=== PATIENT | male | born 1970 | race African-American/Black ===

== ENCOUNTER → 2019-02-03 08:35 | Outpatient (CLI) | payer OTHER, SELFPAY ==
--- NOTE | 2019-02-03 08:48 | DI.CT.S_ITS ---
PROCEDURE: CT LUMBAR SPINE WO CON INDICATIONS: SPINAL STENOSIS TECHNIQUE: Noncontrast 3 mm thick sections acquired from the T12 level to the sacrum. Sagittal and coronal reformats were constructed. For radiation dose reduction, the following was used: automated exposure control. COMPARISON: [facility], , MR LUMBAR SPINE WITH/WITHOUT CONTRAST, 07/16/2017, 13:00. [facility] [place], CR, XR LUMBAR SPINE 2 OR 3 VIEWS, 09/13/2018, 8:40. FINDINGS: Image quality: Excellent. Bones: There is posterior fusion from L3-S1 with intervertebral spacers. Hardware is intact without evidence of fracture or periprosthetic loosening. No acute vertebral body compression fractures. No suspicious lytic or blastic bony lesions. No pars defects. Disc bulges are present at L2-3, L3-4, L4-5 and L5-S1. There is mild canal narrowing at L2-3, progressive compared to prior exam. Previous spinal stenosis at L3-4 and L4-5 has markedly improved. No spinal stenosis at L5-S1. There is moderate bilateral foraminal narrowing at L3-4, severe left and moderate to severe right L4-5 and severe bilateral L5-S1 with slight appearance of nerve roots bilaterally. Appearance is minimally progressive at L4-5 and L5-S1 compared to prior exam. Multilevel facet hypertrophy is present. Soft tissues: No retroperitoneal masses or hematomas. Visualized aorta is normal in caliber. IMPRESSION: 1. Interval fusion from L3-S1 with improvement in previous spinal stenosis. 2. Multilevel foraminal narrowing with minimal interval progression as noted above. Dictated by: Heather Holm M.D. on 02/03/2019 at 16:39 Approved by: Heather Holm M.D. on 02/03/2019 at 16:47
== END ==
PROVIDERS: Family Provider Family Medicine; PCP Family Medicine; Visit Provider Orthopaedic Surgery Orthopaedic Surgery of the Spine
DX: M48.061 Spinal stenosis, lumbar region without neurogenic claudication (principal)
CPT/HCPCS: 72131

== ENCOUNTER → 2019-08-24 07:15 | Outpatient (CLI) | payer OTHER, SELFPAY ==
[2019-08-24 08:11] LABS: Add Manual Diff / Slide Review NO; Basophils Absolute Auto 100 /uL (0-100); Basophils Percent Auto 0.8 % (0-2); Eosinophils Absolute Auto 300 /uL (0-450); Eosinophils Percent Auto 3.4 % (2-4); Hematocrit 44.8 % (41-53); Hemoglobin 14.7 g/dL (13.5-17.5); Lymphocytes Absolute Auto 2100 /uL (1100-4500); Lymphocytes Percent Auto 26.2 % (25-40); Mean Corpuscular HGB Conc 32.9 % (30-36); Mean Corpuscular Hemoglobin 27.1 PG (26-34); Mean Corpuscular Volume 82.3 fL (80-100); Monocytes Absolute Auto 700 /uL (0-900); Monocytes Percent Auto 8.1 % (3-14); Neutrophils Absolute Auto 5000 /uL (1500-7000); Neutrophils Percent Auto 61.5 % (50-75); Platelet Count 225 X10^3/uL (150-400); Red Blood Cell Count 5.44 X10^6/uL (4.5-5.9); Red Cell Distribution Width 15.1 % (11.6-14.8); White Blood Cell Count 8.1 X10^3/uL (4.5-11.0)
[2019-08-24 08:52] LABS: BUN Creatinine Ratio 22.8 (6-22); Blood Urea Nitrogen 21 mg/dL (9-20); Calcium 9.6 mg/dL (8.4-10.2); Carbon Dioxide 24 mmol/L (22-32); Chloride 103 mmol/L (98-107); Estimated Glomerular Filt Rate > 60.0 mL/min (>60); Glucose 124 mg/dL (70-100); HEMOLYSIS 37 (0-50); Potassium 3.8 mmol/L (3.4-5.1); Sodium 137 mmol/L (137-145)
== END ==
PROVIDERS: Family Provider Family Medicine; PCP Family Medicine; Referring Provider Orthopaedic Surgery Orthopaedic Surgery of the Spine; Visit Provider Orthopaedic Surgery Orthopaedic Surgery of the Spine
DX: Z01.818 Encounter for other preprocedural examination (principal); Z01.812 Encounter for preprocedural laboratory examination; R73.9 Hyperglycemia, unspecified
CPT/HCPCS: 36415; 80048; 83036; 85025; 93005; 93010

== ENCOUNTER → 2020-05-03 09:24 | Outpatient (CLI) | payer OTHER, SELFPAY ==
[2020-05-03 10:07] LABS: Add Manual Diff / Slide Review NO; Basophils Absolute Auto 100 /uL (0-100); Basophils Percent Auto 0.8 % (0-2); Eosinophils Absolute Auto 200 /uL (0-450); Eosinophils Percent Auto 2.9 % (2-4); Hematocrit 45.1 % (41-53); Hemoglobin 14.5 g/dL (13.5-17.5); Lymphocytes Absolute Auto 1800 /uL (1100-4500); Lymphocytes Percent Auto 22.8 % (25-40); Mean Corpuscular HGB Conc 32.2 % (30-36); Mean Corpuscular Volume 83.7 fL (80-100); Monocytes Absolute Auto 500 /uL (0-900); Monocytes Percent Auto 6.6 % (3-14); Neutrophils Absolute Auto 5400 /uL (1500-7000); Neutrophils Percent Auto 66.9 % (50-75); Platelet Count 230 X10^3/uL (150-400); Red Blood Cell Count 5.38 X10^6/uL (4.5-5.9); Red Cell Distribution Width 15.3 % (11.6-14.8); White Blood Cell Count 8.1 X10^3/uL (4.5-11.0)
[2020-05-03 10:38] LABS: BUN Creatinine Ratio 22.5 (6-22); Blood Urea Nitrogen 20 mg/dL (9-20); Calcium 9.3 mg/dL (8.4-10.2); Carbon Dioxide 26 mmol/L (22-32); Chloride 104 mmol/L (98-107); Estimated Glomerular Filt Rate > 60.0 mL/min (>60); Glucose 117 mg/dL (70-100); HEMOLYSIS < 15 (0-50); Potassium 4.1 mmol/L (3.4-5.1); Sodium 138 mmol/L (137-145)
== END ==
PROVIDERS: Family Provider Family Medicine; PCP Family Medicine; Referring Provider Orthopaedic Surgery Orthopaedic Surgery of the Spine; Visit Provider Orthopaedic Surgery
DX: Z01.812 Encounter for preprocedural laboratory examination (principal)
CPT/HCPCS: 36415; 80048; 85025

== ENCOUNTER → 2020-05-28 13:52 | Outpatient (CLI) | payer OTHER, SELFPAY ==
[2020-05-28 15:04] LABS: COVID19 -Nasal RAPID Negative (Negative)
== END ==
PROVIDERS: Family Provider Family Medicine; PCP Family Medicine; Visit Provider Physician Assistant
DX: Z11.59 Encounter for screening for other viral diseases (principal)
CPT/HCPCS: 87635

== ENCOUNTER → 2020-07-07 09:32 | Outpatient (CLI) | payer OTHER, SELFPAY ==
[2020-07-07 10:51] LABS: COVID19 -Nasal RAPID Negative (Negative)
== END ==
PROVIDERS: Family Provider Family Medicine; PCP Family Medicine; Visit Provider Physician Assistant
DX: Z20.822 Contact with and (suspected) exposure to COVID-19 (principal)
CPT/HCPCS: 87635

== ENCOUNTER 2020-07-09 06:08 | Inpatient (IN) | payer OTHER, SELFPAY ==
[2020-06-12 07:51] VITALS: BMI 50.6
[2020-07-09] VITALS (22 sets, daily range): BP systolic 92–155; BP diastolic 4–95; PULSE 73–100; RESP 8–96; TEMP 36.2–37.1; O2SAT 12–99; BMI 50.6
[2020-07-09] MEDS: LACTATED RINGERS 1,000 ML 42 ML IV ×3 (07:01→11:18)
--- NOTE | 2020-07-09 07:40 | PM.PREOP ---
Pre-operative Note COVID-19 COVID-19 status: Negative Result date/Date tested (Pos, Neg/Pending): 07/07/20 Interval Note History & Physical reviewed/Exam performed by Physician: Yes Changes to H&P: No
--- NOTE | 2020-07-09 08:00 | DI.RAD.S_ITS ---
PROCEDURE: XR LUMBAR SPINE 2-3V INDICATIONS: L5-S1 TLIF TECHNIQUE: 2 intraoperative views of the lumbar spine were acquired. COMPARISON: [facility], JEREMIAH, L-SPINE 2-3 VIEWS, 07/22/2017, 14:26. [facility], JEREMIAH, L-SPINE 2-3 VIEWS, 07/20/2017, 10:42. FINDINGS: Intraoperative views of the lower lumbar spine. There are pedicle screws at L3-L5 with intervertebral body spacers. There is a new pedicle screw at left S1 and intervertebral body spacer. IMPRESSION: Intraoperative guidance for L5-S1 TLIF. Dictated by: Nirmal Kenny M.D. on 07/09/2020 at 14:12 Approved by: Nirmal Kenny M.D. on 07/09/2020 at 14:20
[2020-07-09] MEDS: CLINDAMYCIN 900 MG/50 ML PIGGYBACK 50 MG IV ×3 (08:10→20:09)
--- NOTE | 2020-07-09 08:43 | SUR.OPER ---
Prone on spine table, head in foam head support, padded chest and pelvic supports, gel pad at knees, lower legs supported by pillows; nipples, genitalia and toes free of pressure, arms secured on foam padded arm boards at <90 degrees abduction. Tape over blanket at thigh and calves secured to table. Gel pads along rails under legs, hips, abdomen. Patient legs are too large to fit between the rails so extra pillow and gel underneath knees and thighs.
[2020-07-09] MEDS: BUPIVACAINE LIPOSOME 266 MG/20 ML VIAL INJ (09:18)
[2020-07-09] MEDS: BUPIVACAINE 0.25% W/ EPI (PF) 10 ML VIAL 30 ML INJ (09:18)
--- NOTE | 2020-07-09 11:15 | CM.DANOTE ---
DCP: Case received EMR reviewed. Patient is in surgery. Reviewed history and physical in EMR. DCP assessment was completed based on information available in patient's record. Patient is a 50 year old male who admitted early this morning to the care of the orthopedic team. PCP: Dr. Ballesteros. Payer: confirmed: Anahy Dent. Patient came to the hospital for a surgical procedure. He is having a Tranlaminar Interbody Fusion/Laminectomy. Patient had had history of leg pain and weakness, secondary to spinal stenosis. According to notes, patient does not use any assistive devices at baseline. Unable to meet with patient secondary to his being in surgery. During team rounds, was mentioned that surgery is approximately a 3 hour surgery. He resides in [place] with his spouse, Mary Grace, and children. He is currently employed at [employer]. P: DCP to continue to follow, and will check in with patient post recovery from surgery. He will be working with P.T. as well, orders not yet currently in. Did place name of this material planner on patient's white board in his room, while he has been in surgery. Carey Espinoza RN/Helicopter Dispatcher
--- NOTE | 2020-07-09 12:26 | P.OP_ITS ---
Operative Date/Time/Diagnoses Date of procedure: 07/09/20 Time of procedure: 08:06 Pre-op diagnosis: 1. Hx of L3-5 TLIF with hardware loosening 2. L3-4, L4-5, L5-S1 spinal stenosis 3. L4-5 pseudoarthrosis Post-op diagnosis: same Procedure & Clinicians Procedure: 1. L5-S1 posterolateral and posterior interbody fusion 2. L5-S1 posterior interbody cage placement 3. L3-4, L4-5 posterior segmental instrumentation removal 4. L3-4, L4-5 revision laminectomy with exploration of fusion 5. L3-4, L4-5, L5-S1 posterior segmental instrumentation with pedicle screw placement 6. L4-5 posterolatearl fusion 7. [place] of bone marrow from iliac crest through a separate incision 8. Utilization of microsurgical technique and operating microscope Same procedure as scheduled: Yes Indications: Patient has been having chronic back pain and worsening lumbar radiculopathy. Patient had previous fusion almost 3 years ago. Patient has unresolved pain ra diculopathy that was persisting after additional conservative management. Patient failed multiple conservative management with worsening pain weakness and numbness in her lower extremity. Patient has been having difficulty performing activity of daily living. After discussing risks benefits of treatment options, patient elected proceed with surgery. Surgeon: Markie Juarez Brick Siding Applicator: Jenny Jean'Brien Click Yes if Unassisted: No Anesthesia Type: General Operative Notes Closure Type: primary Specimen(s): none sent Prosthetic devices, grafts, tissues, transplants, or devices: Globus revolve screws, Rise cage Applied: catheter, drain(s) (HV drain) and implant(s) (Globus revolve screws, Rise cage) Estimated Blood Loss (mL): 200 Blood products transfused: none Procedure in detail: Patient was seen in the preoperative area. Risks and benefits of the surgery was discussed with the patient. Informed consent was obtained from the patient and placed in the chart. Surgical site was marked. Patient was taken to the operative room. General anesthesia was administered. Prophylactic antibiotic was given to the patient less than 30 min before the incision was made. Patient was placed into a prone position on the Agustin table. Patient's back was then prepped and draped in the sterile fashion. Time- out was performed at this time. Using patient's previous scar incision was made over the L3-S1 interval on the left side. Fascia was incised in line with skin incision. Patient's previously placed hardware over the L3-4, L4-5 level was identified by dissecting down to the level the hardware using a Bovie and a Guerrero. The locking caps which was removed using globus screwdriver. The locking archana was then removed from the tulips of the pedicle screws using a Yasmani. The pedicle screws were then removed using the screwdriver. The screws were found to have good purchase except in L5 pedicle which was found to be loose. Patient was found have significant amount of heterotopic ossification around the hardware and also in the subcutaneous soft tissue. The Globus and MARS retractors was then placed into the wound and docked onto the L5 lamina using C-arm guidance. Using microsurgical technique and operating microscope a laminectomy facetectomy was performed by removing the L5 lamina and the L5-S1 facet. The disc space at L5- S1 level was identified next. And a total diskectomy was performed at L5-S1 level. The endplates were decorticated using a rasp and shaver. The total diskectomy and decortication was performed at L5-S1 level in order to to accomplish a L5-S1 fusion. The local bone from the laminectomy and facetectomy was saved for local bone grafting. After the total diskectomy and decortication was completed, Trifecta bone graft material was combined with local bone that was harvested earlier. At this time, a separate skin is incision was made over the iliac crest. A Jamshidi needle was inserted into the iliac crest through a separate skin incision. 5 cc of bone marrow aspiration was obtained through the separate skin incision using a Jamshidi needle from the iliac crest. The bone marrow aspiration was combined with local bone and the Trifecta bone grafting material. The bone grafting material was placed into the L5-S1 interbody space along with a expandable cage. The cage was expanded to its maximum height using the torque limiting screwdriver. The fusion mass on the left side was exposed by performing hemilaminectomy at L3-4 L4-5 level. The hemilaminectomy was performed using the Kerrison rongeur to undercut the lamina as well removing additional epidural scar tissue for purpose of decompressing the epidural space. The fusion mass was explored and was found have visible motion indicating pseudoarthrosis at L4-5 level. The L3-4 level was found to be solidly fused. Globus MARS retractor was inserted and docked onto the L4-5 L5-S1 posterolateral gutter. Using the power drill, posterior- lateral decortication was performed at L4-5 L5-S1 level until bleeding cortical bone was identified. The remaining bone grafting material was placed into the L4-5 L5-S1 posterior lateral gutter he order to accomplish posterolateral fusion at the L4-5 L5-S1 level. Using the double C-arm technique, pedicle screws were placed into the L3-L4 L5 and S1 pedicles on the left side. This was done by placing the Jamshidi needle into the pedicles, then placing the guidewires over the Jamshidi needle, and finally placing the cannulated screws over the guidewires bilaterally. After the pedicle screws were placed, a titanium archana was locked into the heads of the pedicle screws using locking caps and torque limiting screwdriver. After all the hardware was placed, and confirmed with AP and lateral C-arm imaging, the wound was then irrigated with sterile normal saline and packed with Ray-Jose gauze for 3 min to accomplish hemostasis. After the gauze was removed the deep fascia was closed with #1 Vicryl suture. The subcutaneous layer was closed with 2-0 Vicryl. The skin was closed with skin forrest. Patient tolerated the procedure well. There were no complications. Complications: none Post-operative Condition: stable Disposition: PACU Plan for aftercare: Admit to inpatient hospital
[2020-07-09] MEDS: HYDROMORPHONE 2 MG INJ IV ×3 (13:02→13:52)
[2020-07-09] MEDS: fentaNYL 100 MCG/2 ML INJ IV ×2 (13:02→13:20)
--- NOTE | 2020-07-09 13:23 | PC.NURSE ---
Day shift:' Pt not on AC unit at this time ([id number]).
[2020-07-09] MEDS: hydrOXYzine 50 MG/ML INJ 25 MG IM (14:20)
--- NOTE | 2020-07-09 14:42 | PC.NURSE ---
Day shift: Pt on unit from PACU at approc 1435. He is A&Ox3. States pain 7/10 left lower back and his left foot feels numb and some pain below the left knee. He is lying on his Rt side at this time. States The SCD's bug me so they are not on at this time. VS OK w/ HR 99. RA 95%. Dressing is CDI. Nate patent. Behzad-vac in patent and depressed w/ small amount of serosang fluid in it. Oreinted to call light and room. Spouse in room for support.
[2020-07-09] MEDS: OXYCODONE IR 10 MG TABLET PO ×3 (14:50→23:28)
[2020-07-09] MEDS: hydrOXYzine pamoate 25 MG CAPSULE PO ×3 (14:51→23:28)
[2020-07-09] MEDS: SODIUM CHLORIDE 0.9% 1,000 ML 100 ML IV (14:54)
--- NOTE | 2020-07-09 16:19 | PT-IP ANOTE ---
Pt arrived ~1445 to acute care floor. Not yet feeling BLE. Will attempt PT evaluation Monday 07/10.
[2020-07-09] MEDS: HYDROMORPHONE 0.5 MG INJ IV ×3 (16:33→23:39)
[2020-07-09] MEDS: INSULIN ASPART 100 UNIT/ML INSULN PEN 15 UNIT SUBCUT (16:54)
[2020-07-09] MEDS: METFORMIN 850 MG TABLET PO (16:54)
[2020-07-09] MEDS: INSULIN ASPART 100 UNIT/ML INSULN PEN SUBCUT (16:54)
[2020-07-09] MEDS: diazePAM 5 MG TABLET PO (20:10)
[2020-07-09] MEDS: cloNIDine 0.1 MG TABLET 0.2 MG PO (20:10)
[2020-07-09] MEDS: DOCUSATE 100 MG CAPSULE PO (20:10)
[2020-07-09] MEDS: SENNOSIDES 8.6 MG TABLET 17.2 MG PO (20:10)
[2020-07-09] MEDS: AMLODIPINE 5 MG TABLET PO (20:10)
[2020-07-09] MEDS: carvediloL 12.5 MG TABLET 25 MG PO (20:10)
[2020-07-10] VITALS (10 sets, daily range): BP systolic 111–153; BP diastolic 57–80; PULSE 91–98; RESP 16–17; TEMP 36.4–38.1; O2SAT 93–97
[2020-07-10] MEDS: SODIUM CHLORIDE 0.9% 1,000 ML 100 ML IV (01:24)
--- NOTE | 2020-07-10 02:34 | PC.NURSE ---
Addendum entered by Munira Lockhart R.N. 07/10/20 02:43: Requested to be awakened when he can have pain medication so now awakened (was snoring lightly) and when awake states his pain is 7/10; medicated with Oxycodone. Original Note: patient seen and assessed at 2342. Complaining of 8/10 back pain radiating down left leg so medicated with IV Dilaudid + Oxycodone/Vistaril combination and ice applied to back. Is alert and oriented. Breath sounds diminished but CTA with RA sat of 95%. HRR. BP elevated at 143/53 possibly due to pain. Denies nausea. BT present and is passing flatus. Indwelling catheter is patent; urine is clear, yellow. Able to move himself in bed; assisted as requested. Dressing to back is CDI; hemovac is intact and recompressed for suction. Chronic bilateral feet/lower extremity numbness improved since pre-op per patient. Wearing own compression stockings. Foot SCD's on. Fall risk score is moderate but patient is oriented, has not yet been out of bed and has in room so alarm is not activated.
[2020-07-10] MEDS: OXYCODONE IR 10 MG TABLET PO ×2 (02:40→05:43)
[2020-07-10] MEDS: CLINDAMYCIN 900 MG/50 ML PIGGYBACK 50 MG IV (04:03)
[2020-07-10] MEDS: HYDROMORPHONE 0.5 MG INJ IV ×3 (04:06→19:12)
[2020-07-10 05:16] LABS: Hemoglobin 12.8 g/dL (13.5-17.5)
[2020-07-10] MEDS: hydrOXYzine pamoate 25 MG CAPSULE PO ×2 (05:43→18:28)
[2020-07-10] MEDS: ACETAMINOPHEN 325 MG TABLET 650 MG PO (05:43)
--- NOTE | 2020-07-10 07:24 | PM.PNPO.1 ---
Subjective Subjective Date Patient Seen: 07/10/20 Time Patient Seen: 07:24 Interval history: POD #1 s/p L3-5 HWR, L5-S1 posterolateral and posterior interbody fusion, and L3-S1 posterior fusion with Dr. Juarez. Patient has had significant pain on Oxycodone requiring IV Dilaudid for breakthrough pain. He has not mobilized with PT yet. BS have been under control. Drain output was 150 cc yesterday. Exam Vital Signs (past 8 hours): - 07/10/20 05:36 07/10/20 05:43 07/10/20 06:25 Temperature 100.6 F H 100.6 F H 100.4 F H Pulse Rate 93 H Respiratory Rate 16 Blood Pressure 148/74 H Pulse Oximetry 97 Oxygen Delivery Method Room Air Oxygen Flow Rate 0 Narrative Exam Narrative: Patient lying in bed in NAD. SILT throughout BLEs. DP pulses 2+ and symmetrical. He is able to actively dorsiflex and plantarflex. Jordan in place. Objective Labs Result Diagrams: 07/10/20 05:00 Labs: Laboratory Results - last 24 hr 07/10/20 05:00 Hgb 12.8 L Hct 41.0 PFSH Medical History Asthma Diabetes HLD (hyperlipidemia) HTN (hypertension) Surgical History Hx of splenectomy Social History household members: spouse, family and children Smoking Status: Never smoker alcohol intake: former Assessment & Plan Post-op Postoperative Procedures: Procedures Operation Date: 07/09/20 07:45 Actual Procedures Side Surgeon p L3-5 HWR, L5-S1 TLIF, L3-S1 PSF w. instrumentation Markie Juarez MD Patient will mobilize with PT today. DC jordan catheter this AM. Change pain medication to Dilaudid PO. Patient needs to get his pain under control, and Drain volume significantly less. Anticipate DC home in next 1-2 days. Quality VTE Deep Vein Thrombosis/Pulmonary Embolism Present on Admission: No
[2020-07-10] MEDS: SODIUM CHLORIDE 0.9% FLUSH 10 ML IV ×2 (07:55→21:30)
[2020-07-10] MEDS: DOCUSATE 100 MG CAPSULE PO ×2 (08:00→21:28)
[2020-07-10] MEDS: carvediloL 12.5 MG TABLET 25 MG PO ×2 (08:00→21:29)
[2020-07-10] MEDS: AMLODIPINE 5 MG TABLET PO ×2 (08:00→21:29)
[2020-07-10] MEDS: ASCORBIC ACID 500 MG TABLET PO (08:00)
[2020-07-10] MEDS: HYDROMORPHONE 2 MG TABLET 4 MG PO ×4 (08:00→22:34)
[2020-07-10] MEDS: LORATADINE 10 MG TABLET PO (08:00)
[2020-07-10] MEDS: LOSARTAN 50 MG TABLET 100 MG PO (08:00)
[2020-07-10] MEDS: FUROSEMIDE 20 MG TABLET 60 MG PO (08:01)
[2020-07-10] MEDS: MAGNESIUM HYDROXIDE 30 ML UDC PO ×2 (08:01→16:18)
[2020-07-10] MEDS: cloNIDine 0.1 MG TABLET 0.2 MG PO ×2 (08:01→21:29)
[2020-07-10] MEDS: INSULIN ASPART 100 UNIT/ML INSULN PEN 15 UNIT SUBCUT ×3 (08:09→17:17)
[2020-07-10] MEDS: INSULIN GLARGINE 100 UNIT/ML 3ML PEN 50 UNIT SUBCUT (08:09)
[2020-07-10] MEDS: METFORMIN 850 MG TABLET PO ×3 (08:25→17:15)
--- NOTE | 2020-07-10 09:25 | CM.DPC ---
Addendum entered by Carey Espinoza R.N. 07/10/20 11:16: A message was left from a Luh Wesley from [employer], indicating if patient needs any resources. Her phone number is: [phone]. Patient was having significant pain, according to orthopedic note. He has not yet been up with P.T. Will follow closely for any needs. Original Note: DCP Cont: Checked in with patient. He was sitting up in bed finishing breakfast. , Mary Grace, was present in room. Introduced self and role. Patient has not yet worked with P.T. today. He stated that he is independent at baseline. Uses no DME supplies, and drives. P: DCP to continue to follow. Will see how patient does with P.T. Carey Espinoza RN/Upholstery Covers Inspector
--- NOTE | 2020-07-10 09:56 | PT.IIE ---
Addendum entered and electronically signed by Debra Moss PT 07/10/20 12:39: Caregiver training set up for 10:30 Wed 07/11 with pt's son Wai. Original Note: Current Diagnoses Other spondylosis with radiculopathy, lumbosacral region (07/09/20) Spinal stenosis, lumbar region without neurogenic claudication (07/09/20) Other mechanical complication of other internal orthopedic devices, implants and grafts, initial encounter (07/09/20) Surgery Performed Operation Date: 07/09/20 07:45 Actual Procedures p L3-5 HWR, L5-S1 TLIF, L3-S1 PSF w. instrumentation - Markie Juarez MD Surgical History (Last Reviewed 07/10/20 @ 07:57 by Jenny Vo PA-C) Hx of splenectomy Medical History (Last Reviewed 07/10/20 @ 07:57 by Jenny Vo PA-C) Asthma Diabetes HLD (hyperlipidemia) HTN (hypertension) Physical Therapy Inpatient Evaluation/Re-Eval M1 PT/OT-IP Prior Functional Status Start: 07/09/20 16:21 Freq: NEEDED Status: Active Protocol: Document 07/10/20 09:56 AW (Rec: 07/10/20 12:15 AW [id number]) Medical Review Prior Functional Status Medical History Reviewed Yes Communication WNL. Pt is an effective verbal communicator. Mobility and Gait Pt uses no assistive device. He is able to complete a [employer] shopping trip while holding on to a cart but has been limited due to back pain. He has history of lumbar surgery with hardware which had loosened on recent imaging . Activities of Daily Living and IADL's Pt has maintained independence with dressing and toileting tasks. His assists wtih washing his back. Social History Household Members spouse,family,children Living Arrangements Mobile home Number of Floors (Floors) One Floor Number of Stairs To Enter/Railing? 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 He lives with his , Mary Grace, who has taken two weeks off from work to assist at home. Pt's 25-yo son , Wai, is also staying in the home to help at discharge. Pt also has 8 and 10 yo children at home. M2 PT-IP Current Condition Start: 07/09/20 16:21 Freq: NEEDED Status: Active Protocol: Document 07/10/20 09:56 AW (Rec: 07/10/20 12:15 AW [id number]) Physical Therapy Current Condition Current Condition Evaluation Date 07/10/20 Treatment Diagnosis multi-level lumbar surgery; impaired mobility and gait. Onset Date 07/09/20 Precautions Lumbar Precautions Log Roll,No Twisting,Limit Bending,Lifting Restriction of 10 lbs,Gait Belt above Incisional Area M3 PT-IP Subjective Start: 07/09/20 16:21 Freq: NEEDED Status: Active Protocol: Document 07/10/20 09:56 AW (Rec: 07/10/20 12:15 AW [id number]) Subjective Physical Therapy Visit Type Type Initial Evaluation Visit Start Time 09:12 Visit Stop Time 09:56 Total Visit Minutes 44 Notes Co-eval with OT Number of MANAGER BALANCE Visits 0 Physical Therapy Visit Comments Patient Comments Pt is willing to participate with PT Patient Goals Pt hopes to avoid SNF and return home with family assist . Therapy Pain Assessment Pain When Pain Assessed During Mobility Pain Present Pain Present Pain Reported Location Back Intensity 9 Scale Used Numeric (0 - 10) Pain Behaviors Facial Grimacing,Restlessness, Wincing Pain Management Techniques Apply Cold,Re-positioning, Timing of Activity with Medications M4 PT-IP Mobility and Gait Start: 07/09/20 16:21 Freq: NEEDED Status: Active Protocol: Document 07/10/20 09:56 AW (Rec: 07/10/20 12:38 AW [id number]) PT-Bed Mobility Assessment Rolling Type of Rolling Log Rolling,Roll to Right Level of Assist Moderate Assistance,1 Person Assistance Supine to Sit Supine to Sit Moderate Assistance,1 Person Assistance,Bedrails Sit to Supine Sit to Supine Moderate Assistance,1 Person Assistance Scooting Scooting to Edge of Bed Contact Guard Assistance PT-Transfer Assessment Sit to and From Stand Sit to and from Stand Moderate Assistance,1 Person Assistance,2 Person Assistance ,Use of Upper Extremities Equipment Transfer Assistive Device Gait Belt,Front Wheeled Walker Orthotic/Prosthetic Devices or Brace: No Transfers Transfer Destination Bed,Chair Transfer Technique Stand Step Pivot Transfer Ability Level of Assist Moderate Assistance,1 Person Assistance,2 Person Assistance Comments Mobility Comments Pt was reclined in the bed as PT and OT arrived. After instruction on back precautions, pt required mod assist and bed rail for log roll to right and SL to sit. BP was 137/66 HR 97 sitting EOB. Pt brought his own FWW which he used with mod A x 1 to stand from the bed which was raised to simulate tall bed at home. Pt reported his left leg felt as if he would float away and he was having difficulty controlling its movement. He buckled on the LLE requiring assist for balance. Pt sat EOB again as therapists prepared the chair. Pt refused the low chair. PT built up the bedside chair with cushion and pillows. Pt then stood from the bed and transferred to the chair mod A x 2. Pt was groggy and needed cues to keep his eyes open. BP was 144/66 HR 94. Even with foot tray pulled out, pt was unstable on the chair so PT and OT decided to help him transfer back to the bed. BP reassessed was 120/64 HR 91 wtih pt reporting feeling hot. With mod A x 2, pt transferred with FWW and needed mod A x 1 for reverse log roll. Pt was positioned on the bed with call light and all needs in reach. Pt's remained in the room. Gait Assessment Gait Gait Assistance Required: Moderate Assistance,2 Person Assist Distance (Feet) 4 Able to Maintain Weight Bearing Status Yes During Gait Assistive Devices Assistive Device Gait Belt,Front Wheeled Walker Orthotic/Prosthetic Devices or Brace: No Gait Deviations General Gait Pattern Antalgic,Decreased Stride Length,Decreased Feet Clearance,Flexed Trunk,Step-to Gait,Wide Based Gait Factors Limiting Gait Function Factors Limiting Gait Function Decreased Activity Tolerance, Decreased Sensation,Decreased Strength,Limited Range of Motion,Pain,Poor Balance,Poor Safety Awareness Comments Gait Comments Transfer only. Pt limited by impaired sensation LLE and back pain. Stair Climbing Assessment Comments Stair Climbing Comments Not assessed. PT-Balance Assessment Sitting Balance and Reactions Static Sitting Balance Ability Good Dynamic Sitting Balance Ability Fair Standing Balance and Reactions Static Standing Balance Ability Poor Dynamic Standing Balance Ability Poor Device Used FWW M5 PT-IP Objective Assessments Start: 07/09/20 16:21 Freq: NEEDED Status: Active Protocol: Document 07/10/20 09:56 AW (Rec: 07/10/20 12:38 AW [id number]) Orientation Orientation/Cognition Level of Alertness Lethargic Orientation Name,Day of Week,Place, Situation Language Function Ability No Deficits Noted Safety Awareness Decreased Safety Awareness Gross Range of Motion Lower Extremity ROM Assessment Left Impaired Impairments limited LLE AROM into dorsiflexion at toes and ankle Strength Lower Extremity Strength Assessment Left Impaired Hip 4-/5 Knee 4-/5 Ankle 3-/5 Sensation Assessment Sensation Gross Sensation Left LE Impaired Light Touch Impaired Proprioception (Position) Impaired Sensation Description Numbness Comments Sensation Comments Poor awareness of LLE positioning in space. Pt reports feeling both light and heavy in the entire LLE but with distal more affected than proximal. M6 PT-IP Treatment Start: 07/09/20 16:21 Freq: NEEDED Status: Active Protocol: Document 07/10/20 09:56 AW (Rec: 07/10/20 12:38 AW [id number]) Physical Therapy Treatment Education Education Provided Precautions,Weight Bearing Status,Post-Op Packet,Safety Other Treatments Other Treatment Performed Provided education on role of PT, plan of care, current level of assist required. M7 PT-IP Assessment and Plan Start: 07/09/20 16:21 Freq: NEEDED Status: Active Protocol: Document 07/10/20 09:56 AW (Rec: 07/10/20 12:38 AW [id number]) PT Summary Assessment and Plan Potential Rehabilitation Potential Good Status of Condition at Evaluation Evolving Summary Impairments Strength,Balance,Sensation,Bed Mobility,Transfers,Gait, Activity Tolerance Assessment Summary Hood a 50 yo man seen for PT evaluation on POD1 following multi-level lumbar surgery and revision of prior hardware placement. He is independent with ADL's at baseline but reports limited community mobility due to back and BLE pain. On evaluation, pt is requiring mod assist x 2 for all mobility. Gait is not assessed out of concern for safety due to pt presenting with decreased LLE sensation and impaired motor control. Pt lives with his , 2 young children, and his 25 yo son who will all be able and available to assist should pt discharge to home. Pt hopes to avoid SNF but understands it may be a necessary back up plan. PT will plan for discharge home with family assist and HH therapy vs SNF rehab depending on pt progress . Goals Bed Mobility Goal Standby Assistance Transfer Goal Standby Assistance,Front Wheeled Walker Gait Goal Standby Assistance,Front Wheel Walker Gait Distance 120 Other Goals - up/down 5 steps with B rails CGA Days to Meet Goals 8 Frequency of Treatment Frequency Of Treatment Twice a Day Treatment Plan Physical Therapy Treatment Plan Bed Mobility Training,Transfer Training,Gait Training, Therapeutic Exercise,Balance Retraining,Post Op Education, Discharge Planning,Hot or Cold Pack,Neuromuscular Re-ed Other Recommendations and Next Treatment transfers, ambulation with FWW Focus /chair follow as tolerated Recommendations To Nursing Amount of Assist Needed 2 Person Assist Discharge Recommendations PT Discharge Recommendations Home with 05/01 Assist,Home Health,SNF Rehab Other Discharge Recommendations home with 05/01 and HH vs SNF pending progress Transportation Needs at Discharge Private Vehicle,Wheelchair/ Cabulance
--- NOTE | 2020-07-10 10:07 | OT.IP.EVAL ---
Current Diagnoses Other spondylosis with radiculopathy, lumbosacral region (07/09/20) Spinal stenosis, lumbar region without neurogenic claudication (07/09/20) Other mechanical complication of other internal orthopedic devices, implants and grafts, initial encounter (07/09/20) Surgery Performed Operation Date: 07/09/20 07:45 Actual Procedures p L3-5 HWR, L5-S1 TLIF, L3-S1 PSF w. instrumentation - Markie Juarez MD Past Medical History (Last Reviewed 07/10/20 @ 07:57 by Jenny Vo PA-C) Asthma Diabetes HLD (hyperlipidemia) HTN (hypertension) Surgical History (Last Reviewed 07/10/20 @ 07:57 by Jenny Vo PA-C) Hx of splenectomy Occupational Therapy Inpatient Evaluation/Re-Eval M1 PT/OT-IP Prior Functional Status Start: 07/10/20 13:13 Freq: NEEDED Status: Active Protocol: Document 07/10/20 09:12 [facility] (Rec: 07/10/20 13:50 [facility] [id number]) Medical Review Prior Functional Status Medical History Reviewed Yes Communication WNL. Pt is an effective verbal communicator. Mobility and Gait Pt uses no assisted device. He is able to complete a [employer] shopping trip while holding on to a cart but has been limited due to back pain. He has history of lumbar surgery with hardware which had loosened on recent imaging . Activities of Daily Living and IADL's Pt has maintained independence with dressing and toileting tasks. His assists with washing his back. Pt states his kids would assist him with his socks and shoes. Social History Household Members spouse,family,children Living Arrangements Mobile home Number of Floors (Floors) One Floor Number of Stairs To Enter/Railing? 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 He lives with his , Mary Grace, who has taken two weeks off from work to assist at home. Pt's 25-yo son , Wai, is also staying in the home to help at discharge. Pt also has 8 and 10 yo children at home. M2 OT-IP Current Condition Start: 07/10/20 13:13 Freq: Status: Active Protocol: Document 07/10/20 09:12 [facility] (Rec: 07/10/20 13:50 [facility] [id number]) Occupational Therapy Current Condition Current Condition Evaluation Date 07/10/20 Treatment Diagnosis S/P L3-5 HWR, L5-S1 TLIF, L3- S1 PSF Diagnosis Onset Date 07/09/20 Post Operative Precautions Lumbar Precautions Log Roll,No Twisting,Limit Bending,Lifting Restriction of 10 lbs,Gait Belt above Incisional Area M3 OT- IP Subjective and Pain Start: 07/10/20 13:13 Freq: Status: Active Protocol: Document 07/10/20 09:12 [facility] (Rec: 07/10/20 13:50 [facility] [id number]) OT- Subjective Occupational Therapy Visit Type Type Initial Evaluation Visit Start Time 09:12 Visit Stop Time 10:07 Total Visit Minutes 55 Occupational Therapy Visit Comments Patient Comments Pt seen with PT for evals. Pt 's present in the room during the session. Patient/Caregiver Goals TO go home. OT Pain Assessment Pain When Pain Assessed At Rest Pain Present Pain Present Pain Reported Location Back Intensity 8 M4 OT- IP ADL's Start: 07/10/20 13:13 Freq: Status: Active Protocol: Document 07/10/20 09:12 [facility] (Rec: 07/10/20 13:50 [facility] [id number]) OT [id number] Comments OT Self-Feeding Comments NOt at meal time. OT ADL-Grooming General Evaluation Grooming Ability Standby Assistance Comments OT Grooming Comments Able to wash his face while seated after set-up. OT ADL-Oral Care Comments Oral Care Comments NOt performed. Educated to sip into a cup to best follow his back precautions. OT ADL-Dressing General Eval Lower Body Dressing Ability Maximum Assistance Areas Needing Assistance Socks Comments OT Dressing Comments Able to educated pt on use of sock aid to help zack his socks. Pt states already has a maintainability engineer at home. Pt's assist with his compression stocking. OT ADL-Toileting General Evaluation Toileting Ability Total Assistance Areas Needing Assistance Empty Catheter or Colostomy Comments OT Toileting Comments Pt has jordan in place. OT ADL-Bathing Comments OT Bathing Comments NOt at this time. M5 OT- IP IADL's Start: 07/10/20 13:13 Freq: Status: Active Protocol: Document 07/10/20 09:12 [facility] (Rec: 07/10/20 13:50 [facility] [id number]) OT-Instrumental Activities of Daily Living Home Safety Awareness Home Safety Comments At this time as pt is very groogy best to have pt's family assist him for all needs. M6 OT- IP Functional Cognition Start: 07/10/20 13:13 Freq: Status: Active Protocol: Document 07/10/20 09:12 [facility] (Rec: 07/10/20 13:50 [facility] [id number]) Cognitive Factors Limiting Selfcare Function Cognitive Ability Level of Alertness Alert,Drowsy Patient Orientation Name,Place,Situation Attention Span Ability Capable of Focused Attention, Capable of Sustained Attention Ability to Follow Commands Able to Follow One Step Commands with Increased Time, Able to Follow One Step Commands with Repetition Safety Awareness Decreased Recall of Precautions,Decreased Ability to Apply Precautions Cognitive Comments Cognitive Assessment Comments Pt very groggy and needing step by step instructions for bed mobility needs. Pt also having trouble to recall the back precautions. OT- Vision and Hearing OT- Hearing Assessment OT- Hearing Assessment WFL M7 OT- IP Mobility and Balance Start: 07/10/20 13:13 Freq: Status: Active Protocol: Document 07/10/20 09:12 [facility] (Rec: 07/10/20 13:50 [facility] [id number]) OT- Bed Mobility Assessment Rolling Type of Rolling Roll to Right Level of Assistance Moderate Assistance Supine to Sit Supine to Sit Assist Moderate Assistance,1 Person Assistance,Bedrails Sit to Supine Sit to Supine Assist Moderate Assistance,1 Person Assistance,Bedrails OT-Transfer Assessment Sit to and From Stand Sit to and from Stand Moderate Assistance,1 Person Assistance,2 Person Assistance Transfers Transfer Ability Moderate Assistance,2 Person Assistance Technique Transfer Destination Bed,Chair Transfer Technique Stand Step Pivot Devices Transfer Assistive Devices Gait Belt,Front Wheeled Walker Comments Mobility Comments Pt needing from 1-2 person assist to stand from high bed. Pt left knee buckling and needing heavy use of arms on the FWW and assist from therapist for transfer to recliner with cushion on top and pillow to increase height of the recliner. Pt looking drowsy and feeling sweaty so determined to get pt back to the bed. Pt tends to keep one leg out from the walker when coming to stand. OT- Gait Assessment Comments Gait Ability Comments Only transfer at this time. OT- Balance Assessment Sitting Balance and Reactions Static Sitting Balance Ability Normal Dynamic Sitting Balance Ability Good Standing Balance and Reactions Static Standing Balance Ability Poor Dynamic Standing Balance Ability Poor M8 OT- IP Objective Assessments Start: 07/10/20 13:13 Freq: Status: Active Protocol: Document 07/10/20 09:12 [facility] (Rec: 07/10/20 13:50 [facility] [id number]) OT Strength Upper Extremity Strength Assessment Within Functional Limits M9 OT- IP Assessment and Plan Start: 07/10/20 13:13 Freq: Status: Active Protocol: Document 07/10/20 09:12 [facility] (Rec: 07/10/20 13:50 [facility] [id number]) OT Summary Assessment and Plan Potential Rehabilitation Potential Good Analytic Complexity at Evaluation Low Summary OT Impairments Pain,Strength,Balance, Functional Cognition, Functional Mobility,Grooming, Dressing,Toileting,Bathing, Toilet Transfers,Shower Transfers,Activity Tolerance Progress Towards Goals Slow Progress due to Pain,Slow Progress due to Medical Issues,Slow Progress due to Activity Tolerance,Slow Progress due to Cognition Assessment Summary Pt low complexity and main barriers are steps, groogy from medications, decreased strength, balance, and now needing two person assist for mobility needs. Pt insistent on going home as pt's son flew to assist pt at home. Pending caregiver training home with assist versus skilled rehab. Goals Grooming Goal Independent Dressing Goal Independent Toileting Goal Independent Bathing Goal Minimal Assistance Toilet Transfer Goal Independent Shower Transfer Goal Independent Patient/Caregiver Education Goal Demonstrate Post-Op Precautions,Caregiver Independent Assisting Patient Days to Meet Goals 15 Frequency of Treatment Frequency Of Treatment Once a Day Treatment Plan OT Treatment Plan ADL Training,Functional Cognition Training,Functional Mobility,Patient/Family Education,Discharge Planning Other Treatment Recommendations and Next Caregiver training with son Treatment Focus for ADL and transfer needs. Discharge Recommendations OT Discharge Recommendations Home with Assistance,SNF Rehab Other Discharge Recommendations Pending caregiver training home with assist versus skilled rehab. Home Equipment Needs Tub bench, sock aid, BSC Transportation Needs at Discharge Private Vehicle,Wheelchair/ Cabulance
--- NOTE | 2020-07-10 11:20 | PC.NURSE ---
Day shift: Pt did not want the Sullivan removed this AM. He said I want to wait until I can walk better. Pt informed of increased risk of UTI but he still wants it left in for now.
[2020-07-10] MEDS: INSULIN ASPART 100 UNIT/ML INSULN PEN SUBCUT (11:34)
--- NOTE | 2020-07-10 14:19 | PT.IPTN ---
Current Diagnoses Other spondylosis with radiculopathy, lumbosacral region (07/09/20) Spinal stenosis, lumbar region without neurogenic claudication (07/09/20) Other mechanical complication of other internal orthopedic devices, implants and grafts, initial encounter (07/09/20) Surgery Performed Operation Date: 07/09/20 07:45 Actual Procedures p L3-5 HWR, L5-S1 TLIF, L3-S1 PSF w. instrumentation - Markie Juarez MD Physical Therapy Treatment Note M2 PT-IP Current Condition Start: 07/09/20 16:21 Freq: NEEDED Status: Active Protocol: Document 07/10/20 09:56 AW (Rec: 07/10/20 12:15 AW [id number]) Physical Therapy Current Condition Current Condition Evaluation Date 07/10/20 Treatment Diagnosis multi-level lumbar surgery; impaired mobility and gait. Onset Date 07/09/20 Precautions Lumbar Precautions Log Roll,No Twisting,Limit Bending,Lifting Restriction of 10 lbs,Gait Belt above Incisional Area M3 PT-IP Subjective Start: 07/09/20 16:21 Freq: NEEDED Status: Active Protocol: Document 07/10/20 13:30 SP (Rec: 07/10/20 16:18 SP [id number]) Subjective Physical Therapy Visit Type Type Treatment Note Visit Start Time 13:30 Visit Stop Time 14:19 Total Visit Minutes 49 Notes SPTA Bailee attended tx and provided w/c follow when needed. in room when arrived, provided physical assist during gait, partial caregiver training. CREDIT VERIFICATION CLERK and or nurse assisted when needed during tx for catheter and wound bag draining and thigh device for tubing stability/ support. Nurse also provided SPTA education on Catheter removal for furture awareness, but to be performed by nursing only, at end of tx and how allows pt freedom for mobility with least restrictions and bladder trng prep DC when medically cleared . Number of ARTIST RELATIONSHIP MANAGER Visits 1 Physical Therapy Visit Comments Patient Comments Pt is willing to participate with therapy. Patient Goals Pt hopes to avoid SNF and return home with family assist . Therapy Pain Assessment Pain When Pain Assessed At Rest Pain Present Pain Present Pain Reported Location Back Intensity 8 Scale Used at rest increased to 9/10 during mobility. Description Burning,With Movement Pain Behaviors Facial Grimacing,Restlessness, Wincing Pain Management Techniques Apply Cold,Re-positioning, Timing of Activity with Medications M4 PT-IP Mobility and Gait Start: 07/09/20 16:21 Freq: NEEDED Status: Active Protocol: Document 07/10/20 13:30 SP (Rec: 07/10/20 16:18 SP [id number]) PT-Bed Mobility Assessment Rolling Type of Rolling Log Rolling,Roll to Right Level of Assist Standby Assistance Supine to Sit Supine to Sit Standby Assistance,Head of Bed Elevated,Bedrails Sit to Supine Sit to Supine Minimal Assistance,1 Person Assistance,Bedrails Scooting Scooting to Edge of Bed Contact Guard Assistance PT-Transfer Assessment Sit to and From Stand Sit to and from Stand Moderate Assistance,1 Person Assistance,Use of Upper Extremities Equipment Transfer Assistive Device Gait Belt,Front Wheeled Walker Orthotic/Prosthetic Devices or Brace: No Transfers Transfer Destination Bed,Chair Transfer Technique Pt ambulated using FWW Transfer Ability Level of Assist Minimal Assistance,Moderate Assistance,1 Person Assistance ,Use of Upper Extremities Comments Mobility Comments Pt was R sidelying in bed and in room when arrived. Pt had recall 3/3 spinal precautions. Pt completed R sidelying >sitting using BUE within spinal precautions then scoot to EOB SBA. Sit>stand Mod A x1 with cuing for 1 UE off bed and other on FWW, ambulate further in room to door>bench>back to chair approx 30 ft (bench cushion on chair with extra pillow take up gap to elevate for his height) Min-Mod A using FWW and slow descent into chair using UE for self support. Pt agreeable to walking further distance into hallway approx 150 ft total with w/c follow but not needed using FWW, see gait for details. When returned to room pt sat on to EOB, nurse provided pain meds and assisted with catheter removal. Sit>R sidelying Min A by SPTA for LE assist onto bed and pillow support and CP at low back to assist pain control. Pt had bed alarmed, call light and all needs in reach before left. in room. Gait Assessment Gait Gait Assistance Required: Minimum Assistance,Moderate Assistance,1 Person Assist Distance (Feet) 150 Able to Maintain Weight Bearing Status Yes During Gait Assistive Devices Assistive Device Gait Belt,Front Wheeled Walker Orthotic/Prosthetic Devices or Brace: No Gait Deviations General Gait Pattern Antalgic,Decreased Stride Length,Decreased Feet Clearance,Flexed Trunk,Lateral Trunk Lean,Step-to Gait,Wide Based Gait Factors Limiting Gait Function Factors Limiting Gait Function Decreased Activity Tolerance, Decreased Sensation,Decreased Strength,Limited Range of Motion,Pain,Poor Balance,Poor Safety Awareness Comments Gait Comments Room and hallway gait using FWW Min- Mod A with support for L trunk righting to the right during LLE advancement. Pt is unable actively dorsiflex R ankle to 90 deg to allow foot clearance and so compensated with hip flexion and demonstrates foot slap, cued for trying eccentric control heel to toe grading to facilitaiton Tib Anterior as best can. Stair Climbing Assessment Comments Stair Climbing Comments unable at this time, will assess tomorrow with son during caregiver training. PT-Balance Assessment Sitting Balance and Reactions Static Sitting Balance Ability Good Dynamic Sitting Balance Ability Fair Standing Balance and Reactions Static Standing Balance Ability Poor Dynamic Standing Balance Ability Poor Device Used FWW M5 PT-IP Objective Assessments Start: 07/09/20 16:21 Freq: NEEDED Status: Active Protocol: Document 07/10/20 09:56 AW (Rec: 07/10/20 12:38 AW [id number]) Orientation Orientation/Cognition Level of Alertness Lethargic Orientation Name,Day of Week,Place, Situation Language Function Ability No Deficits Noted Safety Awareness Decreased Safety Awareness Gross Range of Motion Lower Extremity ROM Assessment Left Impaired Impairments limited LLE AROM into dorsiflexion at toes and ankle Strength Lower Extremity Strength Assessment Left Impaired Hip 4-/5 Knee 4-/5 Ankle 3-/5 Sensation Assessment Sensation Gross Sensation Left LE Impaired Light Touch Impaired Proprioception (Position) Impaired Sensation Description Numbness Comments Sensation Comments Poor awareness of LLE positioning in space. Pt reports feeling both light and heavy in the entire LLE but with distal more affected than proximal. M6 PT-IP Treatment Start: 07/09/20 16:21 Freq: NEEDED Status: Active Protocol: Document 07/10/20 13:30 SP (Rec: 07/10/20 16:18 SP [id number]) Physical Therapy Treatment Exercises Exercises Ankle Pumps,Seated Knee Flexion/Extension Education Education Provided Precautions,Weight Bearing Status,Post-Op Packet,Safety M7 PT-IP Assessment and Plan Start: 07/09/20 16:21 Freq: NEEDED Status: Active Protocol: Document 07/10/20 13:30 SP (Rec: 07/10/20 16:18 SP [id number]) PT Summary Assessment and Plan Potential Rehabilitation Potential Good Status of Condition at Evaluation Evolving Summary Impairments Strength,Balance,Sensation,Bed Mobility,Transfers,Gait, Activity Tolerance Progress Towards Goals Progressing Toward Goals,Slow Progress due to Pain,Slow Progress due to Medical Issues ,Slow Progress due to Activity Tolerance Assessment Summary Pt required SBA during bed mobility, Min- Mod A for transfers and gait hallway nursing station distance using fWW with trunk support on L due to L lateral lean. Pt is demonstrating lacking complete R LE dorsiflexion at this time but improving from am tx. Will continue to assess pt progression but would benefit from further acute PT to improved RLE strength and safety during mobility using FWW. Goals Bed Mobility Goal Standby Assistance Transfer Goal Standby Assistance,Front Wheeled Walker Gait Goal Standby Assistance,Front Wheel Walker Gait Distance 120 Other Goals - up/down 5 steps with B rails CGA Days to Meet Goals 8 Frequency of Treatment Frequency Of Treatment Twice a Day Treatment Plan Physical Therapy Treatment Plan Bed Mobility Training,Transfer Training,Gait Training, Therapeutic Exercise,Balance Retraining,Post Op Education, Discharge Planning,Hot or Cold Pack,Neuromuscular Re-ed Other Recommendations and Next Treatment caregiver training with son at [facility] 1030 07/11 including bed mobiltiy with HOB flat no rails, transfers, ambulation with FWW/chair follow as tolerated, stair mgt 5 stairs B HR. Recommendations To Nursing Amount of Assist Needed 1 Person Assist Discharge Recommendations PT Discharge Recommendations Home with 24/7 Assist,Home Health Other Discharge Recommendations home with 24/7 and Transportation Needs at Discharge Private Vehicle,Wheelchair/ Cabulance
[2020-07-10] MEDS: diazePAM 5 MG TABLET PO (21:29)
[2020-07-10] MEDS: ROSUVASTATIN 10 MG TABLET PO (21:29)
[2020-07-10] MEDS: SENNOSIDES 8.6 MG TABLET 17.2 MG PO (21:31)
--- NOTE | 2020-07-11 00:30 | PC.NURSE ---
Addendum entered by Munira Lockhart R.N. 07/11/20 05:45: Ambulated in [place] with walker and SBA; walked around main nursing station and back to room x 2 Addendum entered by Munira Lockhart R.N. 07/11/20 02:51: Complains of 7/10 back pain/pressure exacerbated by movement; medicated with Dilaudid + Vistaril. Original Note: patient is alert and oriented. Breath sounds diminished but CTA with RA sat of 96%. HRR. BP continues to trend high at 149/74. Denies nausea. BT hypoactive but states he is passing flatus. Catheter removed yesterday and has been urinating without difficulty; denies dysuria, frequency or urgency. Able to move himself in bed. Reportedly gets up with walker and 1 assist. Dressing to back is CDI; hemovac is intact and recompressed. States pain is 6-7/10 at rest and 8/10 with movement but was medicated at 2234 with po Dilaudid and feels pain is tolerable; ice pack applied to back and informed to call when needing more pain medication. Refusing to wear foot SCD's so reminded to ankle wave. Is having weird feeling in left thigh area...feels floppy during ambulation. Also is only able to flex left foot slightly. Chronic numbness in bilateral LE. Fall risk score is high but has been calling appropriately and is present in room so alarm is not being utilized at this time; verbalizes he will call for assistance when needing to get out of bed.
[2020-07-11] MEDS: HYDROMORPHONE 2 MG TABLET 4 MG PO ×4 (02:49→13:40)
[2020-07-11] MEDS: hydrOXYzine pamoate 25 MG CAPSULE PO ×3 (02:49→10:47)
[2020-07-11 05:51] VITALS: BP 145/70; PULSE 91; RESP 16; TEMP 37.2; O2SAT 93
[2020-07-11 07:42] VITALS: BP 149/74; PULSE 89; RESP 18; TEMP 36.8; O2SAT 96
[2020-07-11] MEDS: INSULIN GLARGINE 100 UNIT/ML 3ML PEN 50 UNIT SUBCUT (08:54)
[2020-07-11] MEDS: INSULIN ASPART 100 UNIT/ML INSULN PEN SUBCUT ×2 (08:55→12:19)
[2020-07-11] MEDS: INSULIN ASPART 100 UNIT/ML INSULN PEN 15 UNIT SUBCUT ×2 (08:57→12:19)
[2020-07-11 08:58] VITALS: BP 149/74
[2020-07-11] MEDS: carvediloL 12.5 MG TABLET 25 MG PO (08:58)
[2020-07-11] MEDS: METFORMIN 850 MG TABLET PO ×2 (08:58→12:20)
[2020-07-11 08:59] VITALS: BP 149/74
[2020-07-11] MEDS: cloNIDine 0.1 MG TABLET 0.2 MG PO (08:59)
[2020-07-11] MEDS: FUROSEMIDE 20 MG TABLET 60 MG PO (08:59)
[2020-07-11] MEDS: LOSARTAN 50 MG TABLET 100 MG PO (08:59)
[2020-07-11] MEDS: ASCORBIC ACID 500 MG TABLET PO (08:59)
[2020-07-11] MEDS: AMLODIPINE 5 MG TABLET PO (08:59)
[2020-07-11] MEDS: LORATADINE 10 MG TABLET PO (08:59)
[2020-07-11] MEDS: DOCUSATE 100 MG CAPSULE PO (09:00)
[2020-07-11] MEDS: SODIUM CHLORIDE 0.9% FLUSH 10 ML IV (09:00)
--- NOTE | 2020-07-11 10:45 | PM.PNPO.1 ---
Subjective Subjective Date Patient Seen: 07/11/20 Time Patient Seen: 10:46 Interval history: Pain has been moderate to severe but well managed with addition Dilaudid. Denies fever or chills. No nausea or vomiting. He notes weakness with dorsiflexion and great toe extension of the left foot. Exam Vital Signs (past 8 hours): - 07/11/20 05:51 07/11/20 07:42 07/11/20 08:58 Temperature 98.9 F 98.2 F Pulse Rate 91 H 89 Respiratory Rate 16 18 Blood Pressure 145/70 H 149/74 H 149/74 H Pulse Oximetry 93 96 07/11/20 08:59 Temperature Pulse Rate Respiratory Rate Blood Pressure 149/74 H Pulse Oximetry Oxygen Delivery Method Room Air Oxygen Flow Rate 0 Drain output 50 mL last shift Narrative Exam Narrative: Pleasant 50-year-old male resting comfortably in bed in no apparent distress. Lumbar dressing is clean, dry and intact. Sensation grossly intact to light touch distal left lower extremity. Patient has 4/5 strength with plantar flexion left foot. 3/5 strength with dorsiflexion compared to 5/5 on the right. No palpable movement of the left toe with extension. Both legs are warm and dry. Objective Labs Result Diagrams: 07/10/20 05:00 PFSH Medical History Asthma Diabetes HLD (hyperlipidemia) HTN (hypertension) Surgical History Hx of splenectomy Social History household members: spouse, family and children Smoking Status: Never smoker alcohol intake: former Assessment & Plan Post-op Postoperative Procedures: Procedures Operation Date: 07/09/20 07:45 Actual Procedures Side Surgeon p L3-5 HWR, L5-S1 TLIF, L3-S1 PSF w. instrumentation Markie Juarez MD Postop day 2 status post L5-S1 posterior lateral and posterior interbody fusion, L5-S1 posterior interbody cage placement, L3-L4, L4-L5 posterior segmental instrumentation removal, L3-L4-L4-L5 revision laminectomy with exploration of fusion, L3-L4, L4-L5, L5-S1 posterior segmental instrumentation with pedicle screw placement, L4-L5 posterior lateral fusion. Patient has weakness with plantar flexion, dorsiflexion, great toe extension on the left. Patient is mobilizing with physical therapy may need AFO. Continue to monitor drain output likely discharge home tomorrow. Quality VTE Deep Vein Thrombosis/Pulmonary Embolism Present on Admission: No
--- NOTE | 2020-07-11 11:15 | PT.IPTN ---
Current Diagnoses Other spondylosis with radiculopathy, lumbosacral region (07/09/20) Spinal stenosis, lumbar region without neurogenic claudication (07/09/20) Other mechanical complication of other internal orthopedic devices, implants and grafts, initial encounter (07/09/20) Surgery Performed Operation Date: 07/09/20 07:45 Actual Procedures p L3-5 HWR, L5-S1 TLIF, L3-S1 PSF w. instrumentation - Markie Juarez MD Physical Therapy Treatment Note M2 PT-IP Current Condition Start: 07/09/20 16:21 Freq: NEEDED Status: Active Protocol: Document 07/10/20 09:56 AW (Rec: 07/10/20 12:15 AW [id number]) Physical Therapy Current Condition Current Condition Evaluation Date 07/10/20 Treatment Diagnosis multi-level lumbar surgery; impaired mobility and gait. Onset Date 07/09/20 Precautions Lumbar Precautions Log Roll,No Twisting,Limit Bending,Lifting Restriction of 10 lbs,Gait Belt above Incisional Area M3 PT-IP Subjective Start: 07/09/20 16:21 Freq: NEEDED Status: Active Protocol: Document 07/11/20 10:35 LD (Rec: 07/11/20 13:06 LD [id number]) Subjective Physical Therapy Visit Type Type Treatment Note Visit Start Time 10:35 Visit Stop Time 11:15 Total Visit Minutes 40 Notes PK Morocho co-led tx w/ supervision of SPRING COILER HAND Brooke. Son in room when arrived for caregiver training, provided physical assist need during tx . Doctor and nurse in room when arrived for post surg check up . Later in tx returned for MMT LLE. Raf inguired if therapy recommended the use of an AFO SPRING COILER HAND during tx, SPRING COILER HAND didn't feel the need w/ cues for pt during safety of heel toe gait pattern and foot clearance. Number of SPRING COILER HAND Visits 2 Physical Therapy Visit Comments Patient Comments Pt is willing to participate with therapy. Patient Goals Pt hopes to avoid SNF and return home with family assist . Therapy Pain Assessment Pain When Pain Assessed During Mobility Pain Present Pain Present Pain Reported Location Back Intensity 8 Scale Used Numeric (0 - 10) Description With Movement Pain Behaviors Facial Grimacing,Restlessness, Wincing Pain Management Techniques Apply Cold,Re-positioning, Timing of Activity with Medications M4 PT-IP Mobility and Gait Start: 07/09/20 16:21 Freq: NEEDED Status: Active Protocol: Document 07/11/20 10:35 LD (Rec: 07/11/20 13:06 LD [id number]) PT-Bed Mobility Assessment Rolling Type of Rolling Log Rolling,Roll to Right Level of Assist Standby Assistance,1 Person Assistance Supine to Sit Supine to Sit Standby Assistance,Contact Guard Assistance,1 Person Assistance Scooting Scooting to Edge of Bed Contact Guard Assistance PT-Transfer Assessment Sit to and From Stand Sit to and from Stand Contact Guard Assistance, Minimal Assistance,1 Person Assistance,Use of Upper Extremities Equipment Transfer Assistive Device Gait Belt,Front Wheeled Walker Orthotic/Prosthetic Devices or Brace: No Transfers Transfer Destination Bed,Chair Transfer Technique Pt ambulated using FWW Transfer Ability Level of Assist Contact Guard Assistance, Minimal Assistance,1 Person Assistance,Use of Upper Extremities Comments Mobility Comments Pt was in bed with HOB elevated with son, doc, and nurse in room when arrived. Pt pain level 7/10 in beginning of tx. Recieved meds from nurse. Pt had recall 3/3 spinal precautions w/ prompt cuing weight limit of no more than 10 lbs. Instructed caregiver instructions for mobility: Pt completed R sidelying>sitting w/ HOB flat no rails within spinal precautions SBA following with scoot to EOB SBA. Sit> stand Min A x1 w/ cueing 1 UE on bed and other on FWW, ambulated to stairs and back to room approx 250 ft. When returned to room, transferred to the chair min A x1 FWW (2 pillows for cushion instead of height, to strengthen LE), using UE for self support. Pain level 8 /10 during mobility. Provided post op education. Placed call light and other needs within reach, pt verbalized understanding the use of call light for assist. Son in room when left. Gait Assessment Gait Gait Assistance Required: Contact Guard Assist,Minimum Assistance,1 Person Assist Distance (Feet) 250 Able to Maintain Weight Bearing Status Yes During Gait Assistive Devices Assistive Device Gait Belt,Front Wheeled Walker Orthotic/Prosthetic Devices or Brace: No Gait Deviations General Gait Pattern Antalgic,Decreased Stride Length,Decreased Feet Clearance,Flexed Trunk,Wide Based Gait Factors Limiting Gait Function Factors Limiting Gait Function Decreased Activity Tolerance, Decreased Sensation,Decreased Strength,Limited Range of Motion,Pain,Poor Balance,Poor Safety Awareness Comments Gait Comments Room and hallway gait using FWW CGA-Min A x1. Trunk is more stable during LLE advancement. Pt has better control of his L ankle DF but continues to be limited for foot clearance as long as given cues for heel to toe for slow eccentric gait pattern. Stair Climbing Assessment Evaluation Level of Assist On Stairs Contact Guard Assistance,1 Person Assistance Devices Stair Climbing Assistive Devices Left Railing,Right Railing Technique/Endurance Stair Climbing Direction Ascend and Descend Stair Climbing Technique Step to Step Number of Steps Climbed 3 Stair Climbing Set # Repetitions (reps) 2 Comments Stair Climbing Comments Ascend and descend a total of 6 steps Mod A x1 using B HR, cueing ascending w/ uninvolved leg lead and descending w/ involved leg w/ step to gait patterning. PT-Balance Assessment Sitting Balance and Reactions Static Sitting Balance Ability Good Dynamic Sitting Balance Ability Fair Standing Balance and Reactions Static Standing Balance Ability Poor Dynamic Standing Balance Ability Poor Device Used FWW M5 PT-IP Objective Assessments Start: 07/09/20 16:21 Freq: NEEDED Status: Active Protocol: Document 07/10/20 09:56 AW (Rec: 07/10/20 12:38 AW [id number]) Orientation Orientation/Cognition Level of Alertness Lethargic Orientation Name,Day of Week,Place, Situation Language Function Ability No Deficits Noted Safety Awareness Decreased Safety Awareness Gross Range of Motion Lower Extremity ROM Assessment Left Impaired Impairments limited LLE AROM into dorsiflexion at toes and ankle Strength Lower Extremity Strength Assessment Left Impaired Hip 4-/5 Knee 4-/5 Ankle 3-/5 Sensation Assessment Sensation Gross Sensation Left LE Impaired Light Touch Impaired Proprioception (Position) Impaired Sensation Description Numbness Comments Sensation Comments Poor awareness of LLE positioning in space. Pt reports feeling both light and heavy in the entire LLE but with distal more affected than proximal. M6 PT-IP Treatment Start: 07/09/20 16:21 Freq: NEEDED Status: Active Protocol: Document 07/11/20 10:35 LD (Rec: 07/11/20 13:06 LD [id number]) Physical Therapy Treatment Exercises Exercises Ankle Pumps,Heel Slides,Supine Hip Abduction,Seated Knee Flexion/Extension Education Education Provided Precautions,Weight Bearing Status,Post-Op Packet,Safety M7 PT-IP Assessment and Plan Start: 07/09/20 16:21 Freq: NEEDED Status: Active Protocol: Document 07/11/20 10:35 LD (Rec: 07/11/20 13:06 LD [id number]) PT Summary Assessment and Plan Potential Rehabilitation Potential Good Status of Condition at Evaluation Evolving Summary Impairments Strength,Balance,Sensation,Bed Mobility,Transfers,Gait, Activity Tolerance Progress Towards Goals Progressing Toward Goals,Slow Progress due to Pain,Slow Progress due to Medical Issues ,Slow Progress due to Activity Tolerance Assessment Summary Pt was SBA SGA for bed mobility, sit>stand min-mod A x1 w/ FWW, gait CGA-min A, stairs Mod A x1 B HR. Pt is safe to return home w/ familt to assist 05/01. Reccommend HHPT to progress strength and functional mobility upon discharge when patient is medically cleared. Goals Bed Mobility Goal Standby Assistance Transfer Goal Standby Assistance,Front Wheeled Walker Gait Goal Standby Assistance,Front Wheel Walker Gait Distance 120 Other Goals - up/down 5 steps with B rails CGA Days to Meet Goals 8 Frequency of Treatment Frequency Of Treatment Twice a Day Treatment Plan Physical Therapy Treatment Plan Bed Mobility Training,Transfer Training,Gait Training, Therapeutic Exercise,Balance Retraining,Post Op Education, Discharge Planning,Hot or Cold Pack,Neuromuscular Re-ed Other Recommendations and Next Treatment Continue w/ log roll/bed Focus mobiltiy with HOB flat no rails, transfers, ambulation with FWW/chair follow as tolerated Recommendations To Nursing Amount of Assist Needed 1 Person Assist Discharge Recommendations PT Discharge Recommendations Home with 05/01 Assist,Home Health Other Discharge Recommendations home with 05/01 and HHPT Equipment Needed for Home Before HHPT to continue reassess L Discharge ankle mobility. Transportation Needs at Discharge Private Vehicle,Wheelchair/ Cabulance
--- NOTE | 2020-07-11 12:00 | CM.DPC ---
Addendum entered by GANGA Krause 07/11/20 14:51: ADD: Return call from [facility] stating that they reviewed clinicals and due to their current difficulty in getting L&I auth in a timely manner (2-3 weeks) they are recommending pt seek outpt PT although they did not contact pt's assigned L&I CM. Pt already left the building for home via spouse POV. BERNADINE called pt's L&I CM [facility] and left ms with update on referral to [facility] with their contact info and if she could help speed up the auth process for the pt and coordinate with [facility] as SW already provided all clinical information including F2F and MD orders and pt has discharged home. BF Original Note: DCP Discharge Home with HH Per Ortho PA, pt medically stable to d/c home today with spouse/son support after further PT/OT today. Per PT/OT, recommending family assist and HH. BERNADINE met bedside with pt and explained role and pt confirms he is agreeable to d/c plan home today although he spoke to ORtho PA regarding his lack of bowel movement and floppy foot feeling and pt has already had prune juice and milk of magnesia and about to eat food and ambulate a bit more and aware that bm not necessarily needed prior to d/c but pt is hopeful for that. BERNADINE discussed HH and pt agreeable and reviewed HH Choice List and no preference and BERNADINE called [facility] based on Vendor Calendar and provided pt information and confirmed that they are willing to contact pt's assigned L&I CM [place] [phone] and attempt to get HH auth and will keep pt updated how quickly HH can be arranged. BERNADINE updated pt on this information. BERNADINE faxed [facility] pt's clinicals, L&I information, F2F and orders to review and begin working on auth. Plan: Patient to d/c home via family POV and new [facility] referral towards attempting insurance auth for HH. GANGA Krause
--- NOTE | 2020-07-11 12:02 | P.DS_ITS ---
History of Present Illness History of Present Illness Date Patient Seen: 07/11/20 Time Patient Seen: 12:02 Chief complaint: Tranlaminar Interbody Fusion/Laminotomy Narrative: See progress note Discharge Providers Provider Date of admission: 07/09/20 06:08 Discharge Date: 07/11/20 Consults: 05/23/20 13:52 Consult to Anesthesiology Routine Comment: Consulting Provider: Anesthesiologist Reason for consultation: PAC request re:pt's medical history Consult to Respiratory Therapy Evaluate & Treat Comment: Physician Instructions: Evaluate and treat 07/09/20 14:41 Consult to Occupational Therapy Evaluate & Treat Comment: Physician Instructions: Evaluate and treat Consult to Physical Therapy Evaluate & Treat Comment: Physician Instructions: Evaluate and Treat Discharge provider: Mikey Hutchinson PA-C Summary Hospital Course Discharge Diagnosis: Pre-op diagnosis: 1. Hx of L3-5 TLIF with hardware loosening 2. L3-4, L4-5, L5-S1 spinal stenosis 3. L4-5 pseudoarthrosis Hospital Course: 1. L5-S1 posterolateral and posterior interbody fusion 2. L5-S1 posterior interbody cage placement 3. L3-4, L4-5 posterior segmental instrumentation removal 4. L3-4, L4-5 revision laminectomy with exploration of fusion 5. L3-4, L4-5, L5-S1 posterior segmental instrumentation with pedicle screw placement 6. L4-5 posterolatearl fusion 7. Grayling of bone marrow from iliac crest through a separate incision 8. Utilization of microsurgical technique and operating microscope Same procedure as scheduled: Yes Indications: Patient has been having chronic back pain and worsening lumbar radiculopathy. Patient had previous fusion almost 3 years ago. Patient has unresolved pain radiculopathy that was persisting after additional conservative management. Patient failed multiple conservative management with worsening pain weakness and numbness in her lower extremity. Patient has been having difficulty performing activity of daily living. After discussing risks benefits of treatment options, patient elected proceed with surgery. Surgeon: Markie Jaurez Workers Compensation Manager: Jenny Vo Click Yes if Unassisted: No Anesthesia Type: General Operative Notes Closure Type: primary Specimen(s): none sent Prosthetic devices, grafts, tissues, transplants, or devices: Globus revolve screws, Rise cage Applied: catheter, drain(s) (HV drain) and implant(s) (Globus revolve screws, Rise cage) Estimated Blood Loss (mL): 200 Blood products transfused: none Patient admitted for the above-mentioned procedure. Patient consented to the same. Patient taken operating room underwent lumbar fusion July 09, 2020. Patient back in his room recovering well as in stable condition. Patient did have some pain control issues yesterday and is now well controlled. Patient is having some left lower extremity weakness which we will continue to monitor her postoperatively. Patient will be discharged home in stable condition. Status at Discharge Cognitive/behavioral status at discharge: at baseline, oriented Functional status at discharge: uses cane/walker Overall status at discharge: patient is progressing back to baseline Time Spent with Patient Time spent: Less than 30 minutes Exam Vital Signs (past 8 hours): - 07/11/20 05:51 07/11/20 07:42 07/11/20 08:58 Temperature 98.9 F 98.2 F Pulse Rate 91 H 89 Respiratory Rate 16 18 Blood Pressure 145/70 H 149/74 H 149/74 H Pulse Oximetry 93 96 07/11/20 08:59 Temperature Pulse Rate Respiratory Rate Blood Pressure 149/74 H Pulse Oximetry Oxygen Delivery Method Room Air Oxygen Flow Rate 0 Narrative Exam Narrative: See progress note Objective Labs Result Diagrams: 07/10/20 05:00 PFSH Medical History Asthma Diabetes HLD (hyperlipidemia) HTN (hypertension) Surgical History Hx of splenectomy Social History household members: spouse, family and children Smoking Status: Never smoker alcohol intake: former Discharge Assessment & Plan Assessment and Plan Assessment: Patient progressing as expected Plan of Treatment: Discharged home in stable condition. Discharge Plan Discharge Plan Patient Disposition: Home Discharge orders & Medications Prescriptions: New acetaminophen 325 mg Tablet 650 mg PO Q6HR PRN (Reason: Pain, Mild (1-3)) Qty: 60 RF: 0 docusate sodium [DOK] 100 mg Capsule 100 mg PO BID Qty: 14 RF: 0 hydromorphone 2 mg Tablet 4 mg PO Q4HR PRN (Reason: Pain, Severe (7-10)) Qty: 60 RF: 0 hydroxyzine pamoate 25 mg Capsule 25 mg PO Q4HR PRN (Reason: Nausea And Vomiting) Qty: 40 RF: 0 Continued albuterol sulfate 90 mcg/actuation Hfa Aerosol Inhaler 2 puff INHALATION Q4-6H PRN (Reason: Shortness Of Breath) Qty: 0 RF: 0 melatonin 1 MG tablet 10 mg PO HS Qty: 0 RF: 0 ascorbic acid (vitamin C) 500 MG tablet 500 mg PO QDAY Qty: 0 RF: 0 losartan [Cozaar] 100 MG tablet 100 mg PO QDAY Qty: 30 RF: 0 amlodipine [Norvasc] 5 MG tablet 5 mg PO BID 60 Days Qty: 0 RF: 0 carvedilol 25 mg Tablet 25 mg PO BID RF: 0 cetirizine 10 mg Tablet 10 mg PO BID RF: 0 metformin 850 mg Tablet 850 mg PO TID RF: 0 clonidine HCl 0.2 mg Tablet 0.2 mg PO BID RF: 0 furosemide 20 mg Tablet 60 mg PO QAM RF: 0 diazepam 5 mg Tablet 5 mg PO BEDTIME RF: 0 insulin lispro [Humalog KwikPen Insulin] 100 unit/mL Insulin Pen 15 - 30 unit SUBCUT TID RF: 0 rosuvastatin 10 mg Tablet 10 mg PO DAILY RF: 0 Lantus Solostar U-100 Insulin 100 unit/mL (3 mL) Insulin Pen 50 unit SUBCUT QAM RF: 0 Jardiance 25 mg Tablet 25 mg PO DAILY RF: 0 Ozempic 1 mg/dose (2 mg/1.5 mL) Pen Injector 1 mg SUBCUT QWEEK RF: 0 Discontinued hydrocodone-acetaminophen [Imperial] 5-325 mg Tablet 1 tab PO Q4-6H PRN (Reason: Pain) RF: 0 acetaminophen 325 MG tablet 650 mg PO Q4HP PRN (Reason: Pain) RF: 0 Follow up/Referrals: Markie Juarez MD [Physician] - (2 weeks) Diet/Activity/Treatments Diet: Diet as Tolerated and Carb-consistent/Diabetic Activity: Limit bending, twisting, lifting Skin/Wound/Dressing Care Report to your healthcare provider any signs of infection, such as:: chills, fever, increased pain and unusual redness Dressing: keep clean and dry Visit Report/Discharge Packet Instructions: DI for Prescription Opioid Use, DI for Transforaminal Lumbar Interbody Fusion Stand Alone Forms: Surgery Discharge Quality VTE Deep Vein Thrombosis/Pulmonary Embolism Present on Admission: No
--- NOTE | 2020-07-11 12:30 | OT.IP.TRT ---
Current Diagnoses Other spondylosis with radiculopathy, lumbosacral region (07/09/20) Spinal stenosis, lumbar region without neurogenic claudication (07/09/20) Other mechanical complication of other internal orthopedic devices, implants and grafts, initial encounter (07/09/20) Surgery Performed Operation Date: 07/09/20 07:45 Actual Procedures p L3-5 HWR, L5-S1 TLIF, L3-S1 PSF w. instrumentation - Markie Juarez MD Occupational Therapy Treatment Note M2 OT-IP Current Condition Start: 07/10/20 13:13 Freq: Status: Active Protocol: Document 07/10/20 09:12 [facility] (Rec: 07/10/20 13:50 [facility] [id number]) Occupational Therapy Current Condition Current Condition Evaluation Date 07/10/20 Treatment Diagnosis S/P L3-5 HWR, L5-S1 TLIF, L3- S1 PSF Diagnosis Onset Date 07/09/20 Post Operative Precautions Lumbar Precautions Log Roll,No Twisting,Limit Bending,Lifting Restriction of 10 lbs,Gait Belt above Incisional Area M3 OT- IP Subjective and Pain Start: 07/10/20 13:13 Freq: Status: Active Protocol: Document 07/11/20 13:07 [facility] (Rec: 07/11/20 13:16 [facility] [id number]) OT- Subjective Occupational Therapy Visit Type Type Treatment Note Visit Start Time 11:27 Visit Stop Time 12:30 Total Visit Minutes 63 Occupational Therapy Visit Comments Patient Comments Pt's son present for caregiver training. Patient/Caregiver Goals To go home. OT Pain Assessment Pain When Pain Assessed At Rest Pain Present Pain Present Pain Reported Location Back Intensity 8 Scale Used Numeric (0 - 10) M4 OT- IP ADL's Start: 07/10/20 13:13 Freq: Status: Active Protocol: Document 07/11/20 13:07 [facility] (Rec: 07/11/20 13:16 [facility] [id number]) OT [id number] General Evaluation Self-Feeding Ability Independent OT ADL-Grooming General Evaluation Grooming Ability Standby Assistance OT ADL-Dressing General Eval Upper Body Dressing Ability Independent Lower Body Dressing Ability Moderate Assistance Areas Needing Assistance Shoes Comments OT Dressing Comments Pt able to use wide sock aid to zack/doff his socks and needing assist to get the heel of the shoe on over his heel and assist to tie his shoes. General Evaluation Toileting Ability Moderate Assistance Comments OT Toileting Comments MOD for completeness. OT ADL-Bathing Comments OT Bathing Comments Pt able to sponge off and states to shower at home. M6 OT- IP Functional Cognition Start: 07/10/20 13:13 Freq: Status: Active Protocol: Document 07/11/20 13:07 [facility] (Rec: 07/11/20 13:16 [facility] [id number]) Cognitive Factors Limiting Selfcare Function Cognitive Ability Level of Alertness Alert Patient Orientation Name,Place,Situation Attention Span Ability Capable of Focused Attention, Capable of Sustained Attention Ability to Follow Commands Able to Follow Multi-Step Commands Safety Awareness Decreased Ability to Apply Precautions Cognitive Comments Cognitive Assessment Comments VC to slow down especially while turning with FWW. M7 OT- IP Mobility and Balance Start: 07/10/20 13:13 Freq: Status: Active Protocol: Document 07/11/20 13:07 [facility] (Rec: 07/11/20 13:16 [facility] [id number]) OT-Transfer Assessment Sit to and From Stand Sit to and from Stand Contact Guard Assistance, Minimal Assistance,Use of Upper Extremities Transfers Transfer Ability Standby Assistance,1 Person Assistance Technique Transfer Destination Chair Transfer Technique Stand Step Pivot Devices Transfer Assistive Devices Gait Belt,Front Wheeled Walker Comments Mobility Comments Pt doing much better today and completed caregiver training with [employer] for steps and bed mobility needs. Pt has good awareness for OT needs and family to assist as needed. OT- Balance Assessment Sitting Balance and Reactions Static Sitting Balance Ability Normal Dynamic Sitting Balance Ability Normal Standing Balance and Reactions Static Standing Balance Ability Fair M8 OT- IP Objective Assessments Start: 07/10/20 13:13 Freq: Status: Active Protocol: Document 07/10/20 09:12 [facility] (Rec: 07/10/20 13:50 [facility] [id number]) OT Strength Upper Extremity Strength Assessment Within Functional Limits M9 OT- IP Assessment and Plan Start: 07/10/20 13:13 Freq: Status: Active Protocol: Document 07/11/20 13:07 [facility] (Rec: 07/11/20 13:16 [facility] [id number]) OT Summary Assessment and Plan Potential Rehabilitation Potential Good Analytic Complexity at Evaluation Low Summary OT Impairments Pain,Functional Mobility, Dressing,Toileting,Bathing, Toilet Transfers,Shower Transfers Progress Towards Goals Progressing Toward Goals Assessment Summary Pt doing much better today and able to do toileting, dressing and sponge off and looking to going home today. Pt issued wide sock aid, shoe horn and long handled sponge. Pt looking to go home today and has a very supportive family to assist with all his needs. Goals Dressing Goal Independent Toileting Goal Independent Bathing Goal Minimal Assistance Toilet Transfer Goal Independent Shower Transfer Goal Independent Patient/Caregiver Education Goal Demonstrate Post-Op Precautions,Caregiver Independent Assisting Patient Days to Meet Goals 7 Frequency of Treatment Frequency Of Treatment Once a Day Treatment Plan OT Treatment Plan ADL Training,Functional Mobility,Patient/Family Education,Discharge Planning Discharge Recommendations OT Discharge Recommendations Home with Assistance,Home Health Home Equipment Needs Tub bench, sock aid, BSC Transportation Needs at Discharge Private Vehicle
--- NOTE | 2020-07-11 14:15 | PC.NURSE ---
Pt dressed with OT. IV removed and intact, tolerated well. Drain removed, tolerated well. Dressing changed and CDI, extra dressing given to pt and . Discharge education given to pt and , discussed- TLIF precautions, opioid medication safety, other medication safety, activity restrictions, diet, s/s of infection, s/s of stroke, reasons to seek medical attention. All pt belongings given to . Pt left via w/c with [place] TORRES to POV accompanied by .
== END 2020-07-11 14:19 | disposition home or self-care (01) | DRG 304 ==
PROVIDERS: Admitting Provider Orthopaedic Surgery Orthopaedic Surgery of the Spine; Family Provider Family Medicine; Referring Provider Orthopaedic Surgery Orthopaedic Surgery of the Spine; Visit Provider Orthopaedic Surgery Orthopaedic Surgery of the Spine
PROC: 0SG30AJ Fusion of Lumbosacral Joint with Interbody Fusion Device, Posterior Approach, Anterior Column, Open Approach (ICD-10-PCS; principal; 2020-07-09 07:45)
DX: T84.038A Mechanical loosening of other internal prosthetic joint, initial encounter (principal); E66.01 Morbid (severe) obesity due to excess calories; Z68.43 Body mass index [BMI] 50.0-59.9, adult; M96.0 Pseudarthrosis after fusion or arthrodesis; E11.9 Type 2 diabetes mellitus without complications; M48.061 Spinal stenosis, lumbar region without neurogenic claudication; I10 Essential (primary) hypertension; E78.5 Hyperlipidemia, unspecified; J45.909 Unspecified asthma, uncomplicated; Z79.4 Long term (current) use of insulin; M48.07 Spinal stenosis, lumbosacral region; G89.18 Other acute postprocedural pain; R53.1 Weakness; Y99.0 Civilian activity done for income or pay
CPT/HCPCS: 36415; 72100; 76000; 82962; 85014; 85018; 94760; 97116; 97162; 97166; 97530; 97535; C1776; A9270; C9290; J0330; J1170; J2250; J2405; J2704; J3010; J3410

== ENCOUNTER → 2020-08-03 11:57 | Outpatient (CLI) | payer OTHER, SELFPAY ==
[2020-07-09 16:39] VITALS: BMI 50.6
--- NOTE | 2020-08-03 | DI.CT.S_ITS ---
PROCEDURE: CT LUMBAR SPINE WO CON INDICATIONS: S/P lumbar fusion TECHNIQUE: Noncontrast 3 mm thick sections acquired from the T12 level to the sacrum. Sagittal and coronal reformats were constructed. For radiation dose reduction, the following was used: automated exposure control. COMPARISON: [facility], CT, CT LUMBAR SPINE WO CON, 02/03/2019, 8:40. FINDINGS: Image quality: Excellent. Bones: Postsurgical changes compatible with L3-S1 PLIF. Orthopedic hardware is intact. No lucency is identified at the bone-hardware interface. Postsurgical changes compatible with left L5-S1 laminotomy and partial facetectomy noted in the interval since the prior exam. There is normal bony alignment. No acute vertebral body compression fractures. No suspicious lytic or blastic bony lesions. Left L4 pars interarticularis defect is stable. T12-L1: Disc height is normal. Moderate, diffuse disc bulge. Mild bilateral facet hypertrophy. Mild narrowing of the central canal. Mild bilateral neural foraminal narrowing. No neural compression. L1-L2: Disc height is normal. Mild bilateral facet hypertrophy. No central stenosis. No neural foraminal narrowing. No neural compression. L2-L3: Disc height is normal. Mild, diffuse disc bulge. [id number] bilateral facet hypertrophy. Mild ligamentum flavum hypertrophy. Mild to moderate narrowing of the central canal. Mild bilateral neural foraminal narrowing. No neural compression. L3-L4: Status post fusion. Moderate bilateral facet hypertrophy. Mild narrowing of the central canal. Moderate to severe right and moderate left neural foraminal narrowing with slight compression of the exiting right L3 nerve root. L4-L5: Status post fusion. Severe bilateral facet hypertrophy. Mild narrowing of the central canal. Moderate to severe right and severe left neural foraminal narrowing with slight compression of the exiting right L5 nerve root and marked compression of the exiting left L4 nerve root. L5-S1: Status post fusion. [id number] bilateral facet hypertrophy. No central stenosis. Severe right and moderate left neural foraminal narrowing with compression of the exiting right L5 nerve root. Soft tissues: 6.3 x 5.0 centimeter fluid collection noted in the left posterior paraspinous musculature the level of the left L4-L5 facet which may represent postsurgical hematoma or seroma, however infected fluid collection cannot be excluded by imaging alone. Heterotopic calcifications noted in the left posterior paraspinous musculature the level of the L3 and L4 vertebral bodies. Visualized aorta is normal in caliber. Partially calcified 2.9 centimeter right adrenal nodule stable. IMPRESSION: 1. Status post L3-S1 posterior fusion and left L5-S1 partial facetectomy. 2. Multilevel degenerative disc disease. 3. Multilevel facet arthropathy. 4. No severe central canal narrowing. 5. Moderate to severe right and severe left L4-L5 neural foraminal narrowing with slight compression of the exiting right L4 nerve root and marked compression of the exiting left L4 nerve root. Severe right L5-S1 neural foraminal narrowing with compression of the exiting right L5 nerve root. 6. 6.3 x 5.0 centimeter fluid collection in the left posterior paraspinous soft tissues at the level of the left L4-L5 facet which may represent postsurgical hematoma/seroma, however infected fluid collection can not be excluded by imaging alone. Recommend correlation with clinical and laboratory data. Dictated by: Eunice Rasheed MD, PhD on 08/03/2020 at 14:42 Approved by: Eunice Rasheed MD, PhD on 08/03/2020 at 14:56
== END ==
PROVIDERS: Family Provider Family Medicine; Referring Provider Orthopaedic Surgery Orthopaedic Surgery of the Spine; Visit Provider Orthopaedic Surgery Orthopaedic Surgery of the Spine
DX: Z09 Encounter for follow-up examination after completed treatment for conditions other than malignant neoplasm (principal); Z98.1 Arthrodesis status; M51.36 Other intervertebral disc degeneration, lumbar region; M47.816 Spondylosis without myelopathy or radiculopathy, lumbar region; M48.061 Spinal stenosis, lumbar region without neurogenic claudication; M48.07 Spinal stenosis, lumbosacral region
CPT/HCPCS: 72131

== ENCOUNTER → 2021-01-25 10:42 | Outpatient (CLI) | payer OTHER, SELFPAY ==
[2020-07-09 16:39] VITALS: BMI 50.6
--- NOTE | 2021-01-25 | DI.CT.S_ITS ---
PROCEDURE: CT UE LT WO CON INDICATIONS: Primary osteoarthritis, left shoulder TECHNIQUE: Noncontrast 1-1.5 mm thick sections acquired from the acromioclavicular joint to the inferior scapula, with coronal and sagittal reformatting. COMPARISON: None. FINDINGS: Image quality: Excellent. Bones: No acute fracture. Severe glenohumeral joint degeneration, with [id number] appearance. Scattered degenerative subchondral sclerosis and spurring. Severe AC degenerative joint disease. No acute fracture. Possible small sub 5 mm loose bodies versus ununited osteophytes seen adjacent to the superior glenoid. Subcentimeter loose bodies seen in the axillary pouch region. Diffuse cervical spondylosis and facet arthropathy. Soft tissues: The visualized lungs appear grossly unremarkable. IMPRESSION: Severe degenerative joint disease as detailed above. Dictated by: Mert Estrada M.D. on 01/25/2021 at 12:25 Approved by: Mert Estrada M.D. on 01/25/2021 at 12:33
== END ==
PROVIDERS: Family Provider Family Medicine; PCP Internal Medicine; Referring Provider Orthopaedic Surgery; Visit Provider Orthopaedic Surgery
DX: M19.012 Primary osteoarthritis, left shoulder (principal); M47.812 Spondylosis without myelopathy or radiculopathy, cervical region
CPT/HCPCS: 73200

== ENCOUNTER → 2021-03-13 09:30 | Outpatient (CLI) | payer OTHER, SELFPAY ==
[2020-07-09 16:39] VITALS: BMI 50.6
[2021-03-13 13:19] LABS: COVID19 -Nasal RAPID Negative (Negative)
== END ==
PROVIDERS: Family Provider Family Medicine; PCP Internal Medicine; Visit Provider Physician Assistant
DX: Z20.822 Contact with and (suspected) exposure to COVID-19 (principal); Z01.812 Encounter for preprocedural laboratory examination
CPT/HCPCS: 87635

== ENCOUNTER 2021-03-14 08:20 | Day surgery (SDC) | payer OTHER, SELFPAY ==
[2020-07-09 16:39] VITALS: BMI 50.6
[2021-03-08 10:30] VITALS: BMI 48.7
[2021-03-14] VITALS (14 sets, daily range): BP systolic 125–179; BP diastolic 77–103; PULSE 80–96; RESP 12–19; TEMP 35.7–36.6; O2SAT 95–98; BMI 48.7
[2021-03-14] MEDS: LACTATED RINGERS 1,000 ML 42 ML IV ×2 (09:46→12:12)
[2021-03-14] MEDS: ACETAMINOPHEN 325 MG TABLET 975 MG PO (09:47)
[2021-03-14] MEDS: PREGABALIN 75 MG CAPSULE PO (09:48)
[2021-03-14] MEDS: CELECOXIB 200 MG CAPSULE PO (09:48)
[2021-03-14] MEDS: VANCOMYCIN 1,000 MG/200 ML PIGGYBACK 200 MG IV ×2 (10:38→22:25)
--- NOTE | 2021-03-14 10:39 | PM.PREOP ---
Pre-operative Note Interval Note History & Physical reviewed/Exam performed by Physician: Yes Changes to H&P: No
--- NOTE | 2021-03-14 11:09 | SUR.PREOP ---
Block start time [1045] . Monitoring initiated and maintained throughout procedure. Oxygen and medications given per anesthesiologist instructions. Patient remained stable throughout procedure, no adverse reactions noted. Block end time [1055].
--- NOTE | 2021-03-14 11:45 | SUR.OPER ---
Beach chair with Maquet shoulder positioner. Lower body on padded OR bed. Head in foam padded head cradle, secured with straps. Non-operative arm secured <90 degrees abduction. Pillow under knees. Safety belt at thigh. Cloth tape over blanket over lower legs.
--- NOTE | 2021-03-14 11:50 | PM.PROC.1 ---
Procedures Date/Time Date of procedure: 03/14/21 Time of procedure: 10:40 General Procedure description: Ultrasound guided interscalene brachial plexus nerve block for post op pain control after left total shoulder arthroplasty by Dr. Mohr. Risk and benefits of procedure discussed with patient. ASA monitoring applied to patient. O2 given via nasal cannula. 2 mg Versed and 50 mcg fentanyl given for procedural sedation. Skin site was prepped with chlorhexidine and allowed to fully dry. Sterile gloves, mask, hat and probe cover were used to maintain sterility. 2% lidocaine and 30ga needle was used to make a small skin wheal at needle insertion site. Under ultrasound guidance, a 21ga 50mm Pajunk needle was directed into the interscalene groove (middle/anterior scalenes) near the brachial plexus. Patient reported no parasthesias. After negative aspiration, 20 mL 0.5% ropivicaine and 10mg dexamethasone were injected around brachial plexus. Patient tolerated procedure well.
[2021-03-14] MEDS: LIDOCAINE 1% W/EPI 20 ML INJ (12:00)
--- NOTE | 2021-03-14 12:02 | SUR.OPER ---
240mg gentamycin given prior to incision
--- NOTE | 2021-03-14 13:24 | P.OP_ITS ---
Operative Date/Time/Diagnoses Date of procedure: 03/14/21 Time of procedure: 11:45 Pre-op diagnosis: End-stage arthritis left shoulder Post-op diagnosis: same Procedure & Clinicians Procedure: Left total shoulder arthroplasty Same procedure as scheduled: Yes Indications: End-stage arthritis left shoulder Surgeon: Christian Mohr Mine Safety Manager: Denise Jacome Anesthesia Type: General and Peripheral nerve block Operative Notes Findings: End-stage arthritic changes to the glenohumeral joint with significant arthritis to both sides of the joint. Loose bodies in the glenohumeral joint as well as some inferior osteophytes. No sign of any rotator cuff tearing. Significant stiffness in internal and external rotation shoulder joint. Closure Type: primary Specimen(s): none sent Applied: drain(s) and implant(s) (Size 8 stem, extra large glenoid, 54 x 21 humeral head) Estimated Blood Loss (mL): 50 Blood products transfused: none Procedure in detail: On date of service, Patient was met in the holding area. The operative site was signed and witnessed by the OR staff. The surgeries once again discussed with the patient and any remaining questions they had were answered fully. Patient was taken back to the operating theater and placed on the operating table in a supine position. Great care was taken to ensure that all bony prominences were properly padded. Patient was then placed into the beach chair position. The head and neck were properly positioned and secured. A timeout was performed verifying patient's name, procedure, and the operative site. The upper extremity was then prepped and draped in the normal sterile fashion. Previously, the bony anatomy and incision were marked out as well as injected with Marcaine with epinephrine. A deltopectoral approach was performed. 10 blade was used to incise the skin and fascial tissue. A deep knife was used to continue sharp dissection until the cephalic vein was visualized. The cephalic vein was dissected free allowing us to expose the deltopectoral interval. This interval was then developed. A Guerrero elevator was used to free up the deltoid of any scarring both superficially as well as deeply. The vein and the deltoid were taken laterally while the pectoralis was taken medially. This gave us good visualization of the strap muscles. The clavipectoral fascia was removed and the strap muscles were then retracted medially with the pectoralis. This gave us stabilization of the subscapularis. The circumflex vessels were ligated and the subscapularis was sharply excised off the lesser tuberosity and then tagged. Once the subscapularis was released we're able to dislocate the shoulder. Patient had end-stage arthritic changes to the humeral head as well as the glenoid with osteophytes anterior inferiorly. A Ronger was then used to remove the osteophytes. Next, cutting guide was placed and a saw was used to remove the humeral head. Once the head was removed it was templated. A starting awl was then used to find the canal and then the humerus was reamed and broached. Trial stem was placed and a variety of heads were trialed. A protector placed for the osteotomy was then placed and and we turned our attention back to the subscapularis as well as the glenoid. The subscapularis was freed up and a 360? fashion. The degenerative anterior and inferior capsular tissue was removed. This was followed by removing the degenerative labral tissue from around the glenoid as well as the biceps insertion. This gave us good visualization of the glenoid. Glenoid trials were used until we found the appropriate fit and curvature. Next the center hole was drilled followed by reaming of the glenoid. The wound was copiously irrigated after reaming. Next the pegs were drilled and a trial glenoid was impacted into place. Once we were satisfied with the preparation of the glenoid, the final component was cemented into place. This was followed by impaction. We Return to our attention back to the humerus. The protector plate was removed and heads were trialed once again and so we found the appropriate fit. The trials were removed and bone tunnels were made into the humeral neck. #2 FiberWire were passed through the bone tunnels for eventual subscapularis repair. The final stem and head were impacted into place and the shoulder was reduced. It was taken through range of motion and was felt to be stable in both posterior translation as well as external and internal rotation with abduction. The subscapularis was repaired back to the lesser tuberosity through the bone tunnels. This was then reinforced with soft tissue repair. Part of the rotator interval was then closed. A drain was placed and the rest of the wound was closed in a layered fashion. The shoulder was then cleaned dried and dressed and the patient was taken to the PACU in stable condition. Patient will follow our postoperative protocol for total shoulder arthroplasty. Complications: none Post-operative Condition: stable Disposition: Acute Care Plan for aftercare: Patient follow our postoperative protocol for total shoulder arthroplasty. Patient can be discharged home tomorrow
--- NOTE | 2021-03-14 13:51 | DI.RAD.S_ITS ---
PROCEDURE: XR SHOULDER LT MIN 2V INDICATIONS: Status post total shoulder TECHNIQUE: 2 views of the shoulder were acquired. COMPARISON: None. FINDINGS: Bones: Postsurgical change for left shoulder arthroplasty. Orthopedic hardware is in expected position.. Soft tissues: No suspicious soft tissue calcifications. IMPRESSION: Expected postsurgical change for left shoulder arthroplasty. Dictated by: Eunice Rasheed MD, PhD on 03/14/2021 at 14:13 Approved by: Eunice Rasheed MD, PhD on 03/14/2021 at 14:19
[2021-03-14] MEDS: fentaNYL 100 MCG/2 ML INJ IV ×2 (14:12→14:32)
[2021-03-14] MEDS: HYDROCODONE/ACET 5/325 TABLET 2 TAB PO (14:30)
[2021-03-14] MEDS: LACTATED RINGERS 1,000 ML 125 ML IV (16:19)
[2021-03-14] MEDS: OXYCODONE IR 10 MG TABLET PO ×3 (16:19→22:16)
[2021-03-14] MEDS: INSULIN LISPRO 100 UNIT/ML 3ML VIAL SUBCUT (17:27)
[2021-03-14] MEDS: METFORMIN 850 MG TABLET PO (21:24)
[2021-03-14] MEDS: MELATONIN 3 MG TABLET 9 MG PO (22:16)
[2021-03-14] MEDS: AMLODIPINE 5 MG TABLET PO (22:16)
[2021-03-14] MEDS: diazePAM 5 MG TABLET PO (22:16)
[2021-03-14] MEDS: DOCUSATE 100 MG CAPSULE PO (22:17)
[2021-03-14] MEDS: carvediloL 12.5 MG TABLET 25 MG PO (22:17)
[2021-03-14] MEDS: cloNIDine 0.1 MG TABLET 0.2 MG PO (22:17)
[2021-03-14] MEDS: MAGNESIUM HYDROXIDE 30 ML UDC PO (22:18)
[2021-03-15 00:10] VITALS: BP 152/85; PULSE 96; RESP 19; TEMP 36.9; O2SAT 93
[2021-03-15] MEDS: OXYCODONE IR 10 MG TABLET PO ×4 (01:20→13:43)
[2021-03-15] MEDS: LACTATED RINGERS 1,000 ML 125 ML IV (01:20)
[2021-03-15 04:31] VITALS: BP 158/75; PULSE 82; RESP 19; TEMP 36.2; O2SAT 96
[2021-03-15 05:17] LABS: Hematocrit 40.4 % (41-53); Hemoglobin 13.2 g/dL (13.5-17.5); Mean Corpuscular HGB Conc 32.6 % (30-36); Mean Corpuscular Hemoglobin 27.5 PG (26-34); Mean Corpuscular Volume 84.4 fL (80-100); Platelet Count 206 X10^3/uL (150-400); Red Blood Cell Count 4.79 X10^6/uL (4.5-5.9); Red Cell Distribution Width 14.7 % (11.6-14.8); White Blood Cell Count 13.6 X10^3/uL (4.5-11.0)
[2021-03-15 07:00] VITALS: BP 124/67; PULSE 81; RESP 16; TEMP 36.4; O2SAT 97
--- NOTE | 2021-03-15 07:41 | P.DS_ITS ---
History of Present Illness History of Present Illness Date Patient Seen: 03/15/21 Time Patient Seen: 07:42 Chief complaint: Left shoulder pain Narrative: Patient states his pain is [id number]. Denies fever chills. No nausea vomiting. Discharge Providers Provider Discharge Date: 03/15/21 Primary care physician: Jose Alfredo Valle MD Consults: 03/14/21 13:21 Consult to Discharge Planning Routine Comment: Consult to Physical Therapy Evaluate & Treat Comment: Physician Instructions: Evaluate and Treat Consult to Respiratory Therapy Evaluate & Treat Comment: Physician Instructions: Evaluate and treat Discharge provider: Mikey Hutchinson PA-C Summary Hospital Course Discharge Diagnosis: End-stage arthritis left shoulder Hospital Course: Procedure: Left total shoulder arthroplasty Same procedure as scheduled: Yes Indications: End-stage arthritis left shoulder Surgeon: Christian Mohr Bench Examiner: Denise Jacome Anesthesia Type: General and Peripheral nerve block Operative Notes Findings: End-stage arthritic changes to the glenohumeral joint with significant arthritis to both sides of the joint.? Loose bodies in the glenohumeral joint as well as some inferior osteophytes.? No sign of any rotator cuff tearing.? Significant stiffness in internal and external rotation shoulder joint. Closure Type: primary Specimen(s): none sent Applied: drain(s) and implant(s) (Size 8 stem, extra large glenoid, 54 x 21 humeral head) Estimated Blood Loss (mL): 50 Blood products transfused: none Patient admitted to the hospital for the above-mentioned procedure. Patient consented to the same. Patient taken operating room yesterday underwent left total shoulder arthroplasty. No complications. Patient recovering well. Patient will work with physical therapy. Patient will be maintained on postop protocol for total shoulder arthroplasty. Discharge home after physical therapy if safe for home environment. Status at Discharge Cognitive/behavioral status at discharge: at baseline, oriented Functional status at discharge: independent ambulation Overall status at discharge: patient is progressing back to baseline Exam Vital Signs (past 8 hours): - 03/15/21 00:10 03/15/21 04:31 Temperature 98.4 F 97.2 F L Pulse Rate 96 H 82 Respiratory Rate 19 19 Blood Pressure 152/85 H 158/75 H Pulse Oximetry 93 96 Oxygen Delivery Method Room Air Oxygen Flow Rate 0 Narrative Exam Narrative: 51-year-old male resting comfortably in bed in no apparent distress. Scant drainage on the left shoulder dressing. The drain is in place. 25 mL drainage last shift. Motor functions intact distal left upper extremity. Sensation grossly intact distal left upper extremity. Left hand and arm are warm and dry. Good capillary refill Objective Labs Result Diagrams: 03/15/21 04:27 Labs: Laboratory Results - last 24 hr 03/15/21 04:27 WBC 13.6 H RBC 4.79 Hgb 13.2 L Hct 40.4 L MCV 84.4 MCH 27.5 MCHC 32.6 RDW 14.7 Plt Count 206 PFSH Medical History Asthma Diabetes HLD (hyperlipidemia) HTN (hypertension) Surgical History Hx of splenectomy Social History household members: spouse, family and children Smoking Status: Never smoker alcohol intake: former Discharge Assessment & Plan Assessment and Plan Assessment: Progressing as expected Plan of Treatment: Maintained on postop protocol for left total shoulder arthroplasty. Discharge home today in stable condition. Discharge Plan Discharge Plan Patient Disposition: Home Discharge orders & Medications Discharge Orders: Discharge (Order); Ordered 03/15/21 Ordered By: Mikey Hutchinson Prescriptions: New acetaminophen 325 mg Tablet 650 mg PO Q6HR PRN (Reason: Pain, Mild (1-3)) Qty: 60 RF: 0 oxycodone 10 mg Tablet 5 mg PO Q3HR PRN (Reason: Pain, Severe (7-10)) Qty: 60 RF: 0 Continued albuterol sulfate 90 mcg/actuation Hfa Aerosol Inhaler 2 puff INHALATION Q4-6H PRN (Reason: Shortness Of Breath) Qty: 0 RF: 0 melatonin 1 MG tablet 10 mg PO HS Qty: 0 RF: 0 ascorbic acid (vitamin C) 500 MG tablet 500 mg PO QDAY Qty: 0 RF: 0 losartan [Cozaar] 100 MG tablet 100 mg PO QDAY Qty: 30 RF: 0 amlodipine [Norvasc] 5 MG tablet 5 mg PO BID 60 Days Qty: 0 RF: 0 carvedilol 25 mg Tablet 25 mg PO BID RF: 0 cetirizine 10 mg Tablet 10 mg PO BID RF: 0 metformin 850 mg Tablet 850 mg PO TID RF: 0 clonidine HCl 0.2 mg Tablet 0.2 mg PO BID RF: 0 furosemide 20 mg Tablet 60 mg PO QAM RF: 0 diazepam 5 mg Tablet 5 mg PO BEDTIME RF: 0 insulin lispro [Humalog KwikPen Insulin] 100 unit/mL Insulin Pen 15 - 30 unit SUBCUT TID RF: 0 rosuvastatin 10 mg Tablet 10 mg PO DAILY RF: 0 Lantus Solostar U-100 Insulin 100 unit/mL (3 mL) Insulin Pen 50 unit SUBCUT QAM RF: 0 Jardiance 25 mg Tablet 25 mg PO DAILY RF: 0 Ozempic 1 mg/dose (2 mg/1.5 mL) Pen Injector 1 mg SUBCUT QWEEK RF: 0 Discontinued acetaminophen 325 mg Tablet 650 mg PO Q6HR PRN (Reason: Pain, Mild (1-3)) Qty: 60 RF: 0 Follow up/Referrals: Jose Alfredo Valle MD [Primary Care Provider] - Christian Mohr MD [Physician] - (2 weeks) Diet/Activity/Treatments Diet: Carb-consistent/Diabetic Activity: Postop protocol for total shoulder arthroplasty Skin/Wound/Dressing Care Report to your healthcare provider any signs of infection, such as:: chills, fever, increased pain, unusual drainage and unusual redness Dressing: Keep dressing clean and dry Visit Report/Discharge Packet Instructions: DI for Shoulder Replacement Stand Alone Forms: Surgery Discharge Discharge Data Primary Care Provider: Jose Alfredo Valle Attending Provider: Christian Mohr Quality VTE Deep Vein Thrombosis/Pulmonary Embolism Present on Admission: No
[2021-03-15 08:09] VITALS: BP 124/67; PULSE 81
[2021-03-15] MEDS: METFORMIN 850 MG TABLET PO (08:09)
[2021-03-15] MEDS: FUROSEMIDE 20 MG TABLET 60 MG PO (08:09)
[2021-03-15] MEDS: LORATADINE 10 MG TABLET PO (08:09)
[2021-03-15] MEDS: LOSARTAN 50 MG TABLET 100 MG PO (08:09)
[2021-03-15 08:10] VITALS: BP 124/67; PULSE 81
[2021-03-15] MEDS: carvediloL 12.5 MG TABLET 25 MG PO (08:10)
[2021-03-15] MEDS: AMLODIPINE 5 MG TABLET PO (08:10)
[2021-03-15] MEDS: DOCUSATE 100 MG CAPSULE PO (08:10)
[2021-03-15] MEDS: cloNIDine 0.1 MG TABLET 0.2 MG PO (08:10)
[2021-03-15] MEDS: ASCORBIC ACID 500 MG TABLET PO (08:10)
[2021-03-15] MEDS: INSULIN GLARGINE 100 UNIT/ML 3ML PEN 50 UNIT SUBCUT (08:11)
[2021-03-15] MEDS: ATORVASTATIN 20 MG TABLET PO (08:11)
[2021-03-15] MEDS: INSULIN LISPRO 100 UNIT/ML 3ML VIAL 30 UNIT SUBCUT ×2 (08:12→12:30)
--- NOTE | 2021-03-15 10:22 | PT.IIE ---
Current Diagnoses Primary osteoarthritis, left shoulder (03/14/21) Surgery Performed Operation Date: 03/14/21 10:45 Actual Procedures p Total Shoulder Arthroplasty(Left) - Christian Mohr MD Medical History (Last Reviewed 07/11/20 @ 10:53 by Mikey Hutchinson PA-C) Asthma Diabetes HLD (hyperlipidemia) HTN (hypertension) Physical Therapy Inpatient Evaluation/Re-Eval M1 PT/OT-IP Prior Functional Status Start: 03/15/21 12:37 Freq: NEEDED Status: Active Protocol: Document 03/15/21 09:50 DCW (Rec: 03/15/21 12:49 DCW [id number]) Medical Review Prior Functional Status Medical History Reviewed Yes Diet/Fluid Consistency Regular Communication No deficits Mobility and Gait Independent Activities of Daily Living and IADL's Independnet Social History Household Members spouse,family,children Living Arrangements Mobile home Number of Stairs To Enter/Railing? 5 [place] M2 PT-IP Current Condition Start: 03/15/21 12:37 Freq: NEEDED Status: Active Protocol: Document 03/15/21 09:50 DCW (Rec: 03/15/21 12:49 DCW [id number]) Physical Therapy Current Condition Current Condition Evaluation Date 03/15/21 Treatment Diagnosis s/p TSA Onset Date 03/14/21 Precautions Shoulder Precautions Sling,Internal Rotation to Body,No External Rotation,No Abduction,Pendulums M3 PT-IP Subjective Start: 03/15/21 12:37 Freq: NEEDED Status: Active Protocol: Document 03/15/21 09:50 DCW (Rec: 03/15/21 12:49 [facility] [id number]) Subjective Physical Therapy Visit Type Type Initial Evaluation Visit Start Time 09:50 Visit Stop Time 10:22 Total Visit Minutes 32 Notes Pt POD #1 left total shoulder arthroplasty. Increased pain in left shoulder. Pt wearing sling without body strap in bed. Notes he has been standing bedside to use urinal . Notes occasional mild numbness in index finger and thumb. Pt notes he is scheduled at [place] out- patient PT starting 03/20. Physical Therapy Visit Comments Patient Comments Pt reports pain 7/10 at rest. Therapy Pain Assessment Pain When Pain Assessed At Rest Pain Present Pain Present Pain Reported Location Left Shoulder Intensity 7 Scale Used Numeric (0 - 10) Description Acute,Sharp M4 PT-IP Mobility and Gait Start: 03/15/21 12:37 Freq: NEEDED Status: Active Protocol: Document 03/15/21 09:50 DCW (Rec: 03/15/21 12:49 DC [id number]) PT-Bed Mobility Assessment Rolling Type of Rolling Roll to Right Level of Assist Independent Supine to Sit Supine to Sit Independent,Bedrails Scooting Scooting to Edge of Bed Independent PT-Transfer Assessment Sit to and From Stand Sit to and from Stand Standby Assistance Equipment Transfer Assistive Device Bed Rail Transfer Ability Level of Assist Independent Comments Mobility Comments Pt Independent or SBA with all transfers Gait Assessment Gait Gait Assistance Required: Independent Distance (Feet) 200 Able to Maintain Weight Bearing Status Yes During Gait Assistive Devices Assistive Device None Gait Deviations General Gait Pattern Lateral Trunk Lean,Wide Based Gait Comments Gait Comments Moderate trendelenburg gait PT-Balance Assessment Sitting Balance and Reactions Static Sitting Balance Ability Normal Dynamic Sitting Balance Ability Normal Standing Balance and Reactions Static Standing Balance Ability Good Dynamic Standing Balance Ability Good M5 PT-IP Objective Assessments Start: 03/15/21 12:37 Freq: NEEDED Status: Active Protocol: Document 03/15/21 09:50 DCW (Rec: 03/15/21 12:49 [facility] [id number]) Orientation Orientation/Cognition Level of Alertness Alert Orientation Name,Birthday,Date,Place, Situation Language Function Ability No Deficits Noted Safety Awareness Understands Safety Issues Memory Description No Deficits Noted Gross Range of Motion Upper Extremity ROM Assessment Left Impaired Strength Upper Extremity Strength Assessment Left Impaired M6 PT-IP Treatment Start: 03/15/21 12:37 Freq: NEEDED Status: Active Protocol: Document 03/15/21 09:50 DCW (Rec: 03/15/21 12:49 [facility] [id number]) Physical Therapy Treatment Other Treatments Other Treatment Performed Reviewed shoulder pendulums, otherwise pt instructed to remain in sling, take it easy until out-patient PT starts. Also reviewed don/doff shirt with pendulum motion M7 PT-IP Assessment and Plan Start: 03/15/21 12:37 Freq: NEEDED Status: Active Protocol: Document 03/15/21 09:50 DCW (Rec: 03/15/21 12:49 [facility] [id number]) PT Summary Assessment and Plan Potential Rehabilitation Potential Good Status of Condition at Evaluation Stable Summary Impairments Pain,ROM,Strength,Activity Tolerance Assessment Summary Pt presents as expected POD #1 following left total shoulder . Pt demonstrated understanding with shoulder precautions, knows to keep sling on and not perform any active left shoulder ROM. Reviewed pendulums, shoulder retraction, and finger/wrist exercises, pt demonstrated understanding. Pt demonstrated safety with mobility, appropriate to discharge home at this time if medically cleared. Frequency of Treatment Frequency Of Treatment Discharge Precautions Shoulder Precautions Sling,PROM,Internal Rotation to Body,No External Rotation, No Abduction,Pendulums Recommendations To Nursing Amount of Assist Needed Independent Discharge Recommendations PT Discharge Recommendations Home,Home with Assistance Transportation Needs at Discharge Private Vehicle
[2021-03-15] MEDS: ACETAMINOPHEN 325 MG TABLET 975 MG PO (11:32)
[2021-03-15 11:44] VITALS: BP 136/78; PULSE 89; RESP 14; TEMP 36.2; O2SAT 97
--- NOTE | 2021-03-15 12:49 | PT.IIE ---
Current Diagnoses Primary osteoarthritis, left shoulder (03/14/21) Surgery Performed Operation Date: 03/14/21 10:45 Actual Procedures p Total Shoulder Arthroplasty(Left) - Christian Mohr MD Medical History (Last Reviewed 07/11/20 @ 10:53 by Mikey Hutchinson PA-C) Asthma Diabetes HLD (hyperlipidemia) HTN (hypertension) Physical Therapy Inpatient Evaluation/Re-Eval M1 PT/OT-IP Prior Functional Status Start: 03/15/21 12:37 Freq: NEEDED Status: Active Protocol: Document 03/15/21 09:50 DCW (Rec: 03/15/21 12:49 DCW [id number]) Medical Review Prior Functional Status Medical History Reviewed Yes Diet/Fluid Consistency Regular Communication No deficits Mobility and Gait Independent Activities of Daily Living and IADL's Independnet Social History Household Members spouse,family,children Living Arrangements Mobile home Number of Stairs To Enter/Railing? 5 [place] M2 PT-IP Current Condition Start: 03/15/21 12:37 Freq: NEEDED Status: Active Protocol: Document 03/15/21 09:50 DCW (Rec: 03/15/21 12:49 DCW [id number]) Physical Therapy Current Condition Current Condition Evaluation Date 03/15/21 Treatment Diagnosis s/p TSA Onset Date 03/14/21 Precautions Shoulder Precautions Sling,Internal Rotation to Body,No External Rotation,No Abduction,Pendulums M3 PT-IP Subjective Start: 03/15/21 12:37 Freq: NEEDED Status: Active Protocol: Document 03/15/21 09:50 DCW (Rec: 03/15/21 12:49 [facility] [id number]) Subjective Physical Therapy Visit Type Type Initial Evaluation Visit Start Time 09:50 Visit Stop Time 10:22 Total Visit Minutes 32 Notes Pt POD #1 left total shoulder arthroplasty. Increased pain in left shoulder. Pt wearing sling without body strap in bed. Notes he has been standing bedside to use urinal . Notes occasional mild numbness in index finger and thumb. Pt notes he is scheduled at [place] out- patient PT starting 03/20. Physical Therapy Visit Comments Patient Comments Pt reports pain 7/10 at rest. Therapy Pain Assessment Pain When Pain Assessed At Rest Pain Present Pain Present Pain Reported Location Left Shoulder Intensity 7 Scale Used Numeric (0 - 10) Description Acute,Sharp M4 PT-IP Mobility and Gait Start: 03/15/21 12:37 Freq: NEEDED Status: Active Protocol: Document 03/15/21 09:50 DCW (Rec: 03/15/21 12:49 DC [id number]) PT-Bed Mobility Assessment Rolling Type of Rolling Roll to Right Level of Assist Independent Supine to Sit Supine to Sit Independent,Bedrails Scooting Scooting to Edge of Bed Independent PT-Transfer Assessment Sit to and From Stand Sit to and from Stand Standby Assistance Equipment Transfer Assistive Device Bed Rail Transfer Ability Level of Assist Independent Comments Mobility Comments Pt Independent or SBA with all transfers Gait Assessment Gait Gait Assistance Required: Independent Distance (Feet) 200 Able to Maintain Weight Bearing Status Yes During Gait Assistive Devices Assistive Device None Gait Deviations General Gait Pattern Lateral Trunk Lean,Wide Based Gait Comments Gait Comments Moderate trendelenburg gait PT-Balance Assessment Sitting Balance and Reactions Static Sitting Balance Ability Normal Dynamic Sitting Balance Ability Normal Standing Balance and Reactions Static Standing Balance Ability Good Dynamic Standing Balance Ability Good M5 PT-IP Objective Assessments Start: 03/15/21 12:37 Freq: NEEDED Status: Active Protocol: Document 03/15/21 09:50 DCW (Rec: 03/15/21 12:49 [facility] [id number]) Orientation Orientation/Cognition Level of Alertness Alert Orientation Name,Birthday,Date,Place, Situation Language Function Ability No Deficits Noted Safety Awareness Understands Safety Issues Memory Description No Deficits Noted Gross Range of Motion Upper Extremity ROM Assessment Left Impaired Strength Upper Extremity Strength Assessment Left Impaired M6 PT-IP Treatment Start: 03/15/21 12:37 Freq: NEEDED Status: Active Protocol: Document 03/15/21 09:50 DCW (Rec: 03/15/21 12:49 [facility] [id number]) Physical Therapy Treatment Other Treatments Other Treatment Performed Reviewed shoulder pendulums, otherwise pt instructed to remain in sling, take it easy until out-patient PT starts. Also reviewed don/doff shirt with pendulum motion M7 PT-IP Assessment and Plan Start: 03/15/21 12:37 Freq: NEEDED Status: Active Protocol: Document 03/15/21 09:50 DCW (Rec: 03/15/21 12:49 [facility] [id number]) PT Summary Assessment and Plan Potential Rehabilitation Potential Good Status of Condition at Evaluation Stable Summary Impairments Pain,ROM,Strength,Activity Tolerance Assessment Summary Pt presents as expected POD #1 following left total shoulder . Pt demonstrated understanding with shoulder precautions, knows to keep sling on and not perform any active left shoulder ROM. Reviewed pendulums, shoulder retraction, and finger/wrist exercises, pt demonstrated understanding. Pt demonstrated safety with mobility, appropriate to discharge home at this time if medically cleared. Frequency of Treatment Frequency Of Treatment Discharge Precautions Shoulder Precautions Sling,PROM,Internal Rotation to Body,No External Rotation, No Abduction,Pendulums Recommendations To Nursing Amount of Assist Needed Independent Discharge Recommendations PT Discharge Recommendations Home,Home with Assistance Transportation Needs at Discharge Private Vehicle
== END 2021-03-15 15:02 | disposition home or self-care (01) ==
LOC: OR 08:24 → AC 08:26
PROVIDERS: Family Provider Family Medicine; PCP Internal Medicine; Referring Provider Orthopaedic Surgery; Visit Provider Orthopaedic Surgery
PROC: (CPT 23472; principal; 2021-03-14 10:45)
DX: M19.012 Primary osteoarthritis, left shoulder (principal); M25.712 Osteophyte, left shoulder; M24.012 Loose body in left shoulder; J45.20 Mild intermittent asthma, uncomplicated; E66.9 Obesity, unspecified; G47.33 Obstructive sleep apnea (adult) (pediatric); E11.9 Type 2 diabetes mellitus without complications; Z79.84 Long term (current) use of oral hypoglycemic drugs; Z68.42 Body mass index [BMI] 45.0-49.9, adult; I10 Essential (primary) hypertension; E78.5 Hyperlipidemia, unspecified
CPT/HCPCS: 23472; 36415; 73030; 82962; 85027; 97161; C1776; J1100; J1815; J2250; J2405; J2704; J3010

== ENCOUNTER 2022-06-03 12:14 | Inpatient (IN) | payer OTHER, SELFPAY ==
[2021-03-14 08:42] VITALS: BMI 48.7
[2022-06-03] VITALS (70 sets, daily range): BP systolic 174–247; BP diastolic 87–120; PULSE 83–109; RESP 13–27; TEMP 36.9–38; O2SAT 88–98; BMI 50.6
--- NOTE | 2022-06-03 13:05 | DI.RAD.S_ITS ---
PROCEDURE: XR CHEST 1V INDICATIONS: chest pain TECHNIQUE: One view of the chest was acquired. COMPARISON: [facility], , CHEST 1 VIEW, 06/23/2017, 22:58. FINDINGS: Surgical changes and devices: Left shoulder prosthesis noted. Lungs and pleura: Moderate vascular congestion. Normal heart size Mediastinum: Mediastinal contours appear normal. Heart size is normal. Bones and chest wall: No suspicious bony lesions. Overlying soft tissues appear unremarkable. IMPRESSION: Moderate vascular congestion without cardiomegaly or pleural effusion Approved by: Juan Mckeon M.D. on 06/03/2022 at 12:54
[2022-06-03 14:19] LABS: Add Manual Diff / Slide Review NO; Basophils Absolute Auto 0 /uL (0-100); Basophils Percent Auto 0.4 % (0-2); Eosinophils Absolute Auto 100 /uL (0-450); Eosinophils Percent Auto 1.1 % (2-4); Hematocrit 43.4 % (41-53); Hemoglobin 14.2 g/dL (13.5-17.5); Lymphocytes Absolute Auto 500 /uL (1100-4500); Lymphocytes Percent Auto 6.2 % (25-40); Mean Corpuscular HGB Conc 32.6 % (30-36); Mean Corpuscular Hemoglobin 27.2 PG (26-34); Mean Corpuscular Volume 83.4 fL (80-100); Monocytes Absolute Auto 1500 /uL (0-900); Monocytes Percent Auto 17.2 % (3-14); Neutrophils Absolute Auto 6700 /uL (1500-7000); Neutrophils Percent Auto 75.1 % (50-75); Platelet Count 218 X10^3/uL (150-400); Red Blood Cell Count 5.21 X10^6/uL (4.5-5.9); Red Cell Distribution Width 15.3 % (11.6-14.8); White Blood Cell Count 8.9 X10^3/uL (4.5-11.0)
[2022-06-03 14:27] LABS: INR 1.1 (0.9-1.3); Prothrombin Time 12.8 SECONDS (10.1-12.7)
[2022-06-03 14:29] LABS: PTT Partial Thromboplastin Tim 30 SECONDS (26-36)
[2022-06-03 14:36] LABS: Alanine Aminotransferase 48 IU/L (<50); Albumin 4.6 g/dL (3.5-5.0); Albumin Globulin Ratio 1.2 (1.0-2.8); Alkaline Phosphatase 99 U/L (38-126); Aspartate Aminotransferase 61 IU/L (17-59); BUN Creatinine Ratio 20.4 (6-22); Bilirubin Total 0.6 mg/dL (0.2-1.3); Blood Urea Nitrogen 20 mg/dL (9-20); Calcium 9.4 mg/dL (8.4-10.2); Carbon Dioxide 28 mmol/L (22-32); Chloride 101 mmol/L (98-107); Creatine Kinase 903 U/L (55-170); Estimated Glomerular Filt Rate > 60 mL/min (>60); Glucose 137 mg/dL (70-100); Lipase 46 U/L (23-300); Magnesium 1.7 mg/dL (1.6-2.3); Potassium 3.7 mmol/L (3.4-5.1); Sodium 139 mmol/L (137-145); Total Protein 8.6 g/dL (6.3-8.2)
[2022-06-03 14:48] LABS: Troponin I 0.016 ng/mL (0.01-0.034)
[2022-06-03 14:52] LABS: CKMB % Relative Index 0.4 % (1.5-5.0); Creatine Kinase MB 3.96 ng/mL (<2.37); HEMOLYSIS 25 (0-50)
[2022-06-03 14:58] LABS: COVID-19 CEPHEID PCR (VTM/NP) Negative (Negative)
--- NOTE | 2022-06-03 15:00 | PC.NURSE ---
Talked to provider about this patient presentation and she asked me not to give this patient aspirin that was ordered under nurse initiated protocols.
[2022-06-03] MEDS: ALBUTEROL/IPRATROPIUM 3 ML AMPUL INH (15:28)
[2022-06-03 15:55] LABS: Influenza A - CEPHEID Flu A POSITIVE (NEGATIVE); Influenza B - CEPHEID Flu B NEGATIVE (NEGATIVE); Respiratory Syncytial Virus NEGATIVE (Not Detect)
--- NOTE | 2022-06-03 16:25 | ED.CHESTPAIN ---
HPI - Chest Pain General Chief Complaint: Chest Pain Stated Complaint: chest tightness Time Seen by Provider: 06/03/22 16:20 Source: patient Mode of arrival: Ambulatory History of Present Illness HPI narrative: Patient is a 52-year-old male history of hypertension diabetes presenting today with body aches fever and shortness of breath. States that he has had increasing orthopnea for the last 4-5 days. He is no prior history of congestive heart failure. He developed low-grade temp in body aches yesterday. He feels like his chest hurts every time he coughs. He has been unable to stop coughing. He has no nausea or vomiting he is no abdominal pain. He does feel like his legs are a little bit more swollen than normal. Related Data Home Medications Medication Instructions Recorded Confirmed albuterol sulfate 90 mcg/actuation 2 puff inhalation Q4-6H PRN 04/15/07 06/03/22 aerosol inhaler Shortness Of Breath ##0 ascorbic acid (vitamin C) 500 mg 500 mg PO QDAY ##0 07/19/17 06/03/22 tablet losartan 100 mg tablet (Cozaar) 100 mg PO QDAY #30 tabs 07/19/17 06/03/22 melatonin 1 mg tablet 10 mg PO HS ##0 07/19/17 06/03/22 carvedilol 25 mg tablet 25 mg PO BID 05/23/20 06/03/22 cetirizine 10 mg tablet 10 mg PO BID 05/23/20 06/03/22 clonidine HCl 0.2 mg tablet 0.2 mg PO BID 05/23/20 06/03/22 diazepam 5 mg tablet 5 mg PO BEDTIME 05/23/20 03/14/21 empagliflozin 25 mg tablet 25 mg PO DAILY 05/23/20 06/03/22 (Jardiance) furosemide 20 mg tablet 60 mg PO QAM 05/23/20 06/03/22 insulin glargine 100 unit/mL (3 50 unit SUBCUT QAM 05/23/20 06/03/22 mL) subcutaneous pen (Lantus Solostar U-100 Insulin) insulin lispro 100 unit/mL 15 - 30 unit SUBCUT TID 05/23/20 06/03/22 subcutaneous pen (Humalog KwikPen (U-100) Insulin) metformin 850 mg tablet 850 mg PO TID 05/23/20 06/03/22 rosuvastatin 10 mg tablet 10 mg PO DAILY 05/23/20 06/03/22 semaglutide 1 mg/dose (2 mg/1.5 1 mg SUBCUT QWEEK 05/23/20 06/03/22 mL) subcutaneous pen injector (Ozempic) Previous Rx's Medication Instructions Recorded amlodipine 5 mg tablet (Norvasc) 5 mg PO BID 60 days ##0 07/26/17 acetaminophen 325 mg tablet 650 mg PO Q6HR PRN Pain, Mild 03/15/21 (1-3) #60 tabs oxycodone 10 mg tablet 5 mg PO Q3HR PRN Pain, Severe 03/15/21 (7-10) #60 tabs Allergies Allergy/AdvReac Type Severity Reaction Status Date / Time cefazolin AdvReac Severe Muscle Pain Verified 03/14/21 09:22 Review of Systems Review of Systems Narrative: GENERAL: See HPI HEENT: Denies sinus pain, ear pain, sore throat, difficulty swallowing, neck pain RESPIRATORY: See HPI CARDIOVASCULAR: Denies chest pain, palpitations, orthopnea, edema GASTROINTESTINAL: Denies nausea, vomiting, abdominal pain, diarrhea, constipation, melena. : Denies dysuria, frequency, incontinence, hematuria, urinary retention, flank pain. MUSCULOSKELETAL: Denies weakness, joint pain, or bony pain SKIN: No rash, no erythema, no pruritus NEUROLOGIC: Denies weakness, dizziness, headache, numbness, change in speech, confusion PSYCHIATRIC: No concerning psychosocial issues. 12 point review of systems is negative except for those stated above and HPI Patient History Medical History (Updated 06/03/22 @ 20:26 by KINZA Lambert) Asthma Diabetes Duodenal ulcer History of MRSA infection HLD (hyperlipidemia) HTN (hypertension) Hyperlipidemia due to type 2 diabetes mellitus Insulin dependent type 2 diabetes mellitus Spinal stenosis Surgical History Hx of splenectomy Family History Father Hypertension Diabetes mellitus Mother Diabetes mellitus Hypertension Social History household members: spouse, family and children Smoking Status: Never smoker alcohol intake: former Smoking Status: Never smoker Substance Use Type: does not use Exam Initial Vital Signs Initial Vital Signs: Vital Signs Temperature 99.4 F 06/03/22 12:14 Pulse Rate 93 H 06/03/22 12:14 Respiratory Rate 18 06/03/22 12:14 Blood Pressure 187/100 H 06/03/22 12:14 Pulse Oximetry 98 06/03/22 12:14 Oxygen Delivery Method 06/03/22 12:14 GENERAL: Alert 52-year-old male BMI 50 appears to not feel well HEENT: Head atraumatic,EOMI, pupils reactive, face symmetric, moist mucous membranes CARDIOVASCULAR: Regular rate and rhythm without murmurs, rubs or gallops. RESPIRATORY: Mildly decreased breath sounds bilaterally ABDOMEN: Soft, nontender. Normoactive bowel sounds all 4 quadrants. No guarding or rebound. EXTREMITIES: Normal range of motion, no clubbing or edema. Neurovascularly intact NEUROLOGICAL: Alert and oriented x4. SKIN: Warm, dry, no laceration, no petechiae, no rashes or lesions. Course Orders Ordered: Acetaminophen (Acetaminophen 325 Mg Tablet) 650 mg PO Q6H PRN PRN Reason: Fever/Mild Pain (1-3) Albuterol/Ipratropium (Albuterol/Ipratropium 3 Ml Ampul) 3 ml INH [id number] [facility] Last Admin: 06/04/22 00:09 Dose: 3 ml Documented By: JULIANA Atorvastatin Calcium (Atorvastatin 20 Mg Tablet) 20 mg PO BEDTIME [facility] Last Admin: 06/03/22 22:17 Dose: 20 mg Documented By: JULIÁN Benzonatate (Benzonatate 100 Mg Capsule) 100 mg PO TID PRN PRN Reason: Cough Carvedilol (Carvedilol 12.5 Mg Tablet) 25 mg PO BID [facility] Last Admin: 06/03/22 22:17 Dose: 25 mg Documented By: JULIÁN Dextrose (Dextrose 50 % In Water 25 Gm/50 Ml Syringe) 25 gm IV PRN PRN PRN Reason: Hypoglycemia Enoxaparin Sodium (Enoxaparin 40 Mg/0.4 Ml Syringe) 40 mg SUBCUT DAILY [facility] Guaifenesin/Codeine Phosphate (Codeine/Guaifenesin Liquid 5ml Udc) 10 ml PO Q6H PRN PRN Reason: Cough Last Admin: 06/04/22 03:09 Dose: 10 ml Documented By: JULIÁN Lactated Ringer's (Lactated Ringers) 1,000 mls @ 40 mls/hr IV CONT [facility] Last Admin: 06/03/22 22:17 Dose: 80 mls/hr Documented By: JULIÁN Insulin Glargine (Insulin Glargine 100 Unit/Ml 3ml Pen) 30 unit SUBCUT BID [facility] Last Admin: 06/04/22 00:02 Dose: 30 unit Documented By: JULIÁN Co-signed By: VARSHA Insulin Human Lispro (Insulin Lispro 100 Unit/Ml 3ml Vial) 0 unit SUBCUT ACHS [facility]; Protocol Last Admin: 06/03/22 22:18 Dose: Not Given Documented By: JULIÁN Melatonin (Melatonin 3 Mg Tablet) 9 mg PO BEDTIME [facility] Last Admin: 06/03/22 22:18 Dose: 9 mg Documented By: JULIÁN Naloxone HCl (Naloxone 0.4 Mg/Ml Vial) 0.2 mg IV Q2MIN PRN PRN Reason: Opiate Reversal Ondansetron HCl (Ondansetron 4 Mg/2 Ml Inj) 4 mg IV Q8HR PRN PRN Reason: Nausea And Vomiting Oxycodone HCl (Oxycodone Ir 5 Mg Tablet) 5 mg PO Q4HR PRN PRN Reason: Pain, Moderate (4-)10 Last Admin: 06/04/22 04:54 Dose: 5 mg Documented By: JULIÁN Prednisone (Prednisone 20 Mg Tablet) 40 mg PO DAILY [facility] Discontinued Medications Albuterol/Ipratropium (Albuterol/Ipratropium 3 Ml Ampul) 3 ml INH NOW ONE Stop: 06/03/22 14:21 Last Admin: 06/03/22 15:28 Dose: 3 ml Documented By: MEJIA Aspirin (Aspirin 81 Mg Chew Tab) 324 mg PO NOW ONE Stop: 06/03/22 13:06 Last Admin: 06/03/22 15:00 Dose: Not Given Documented By: LAZ Aspirin (Aspirin 81 Mg Chew Tab) 324 mg PO NOW ONE Stop: 06/03/22 17:12 Last Admin: 06/03/22 17:16 Dose: 324 mg Documented By: LAZ Hydromorphone HCl (Hydromorphone 1 Mg Inj) 1 mg IV NOW ONE Stop: 06/03/22 16:31 Last Admin: 06/03/22 16:39 Dose: 1 mg Documented By: RB Metoprolol Succinate (Metoprolol Er 25 Mg Tablet) 25 mg PO NOW ONE Stop: 06/03/22 19:20 Last Admin: 06/03/22 19:45 Dose: 25 mg Documented By: BS Non-Formulary Medication (Carvedilol) 25 mg PO BID [facility] Non-Formulary Medication (Melatonin) 10 mg PO HS [facility] Non-Formulary Medication (Rosuvastatin) 10 mg PO DAILY [facility] Vital Signs Vital signs: Vital Signs - 8 hr 06/03/22 12:14 06/03/22 13:27 06/03/22 13:30 Temperature 99.4 F Pulse Rate 93 H 105 H 106 H Respiratory Rate 18 15 Blood Pressure 187/100 H Pulse Oximetry 98 97 97 Oxygen Delivery Method Room Air 06/03/22 13:32 06/03/22 13:32 06/03/22 13:58 Temperature Pulse Rate 101 H 96 H Respiratory Rate 22 Blood Pressure 209/93 H Pulse Oximetry 96 98 Oxygen Delivery Method 06/03/22 13:58 06/03/22 14:00 06/03/22 14:01 Temperature Pulse Rate 101 H Respiratory Rate Blood Pressure 189/91 H 193/92 H Pulse Oximetry 97 Oxygen Delivery Method 06/03/22 14:01 06/03/22 14:30 06/03/22 14:30 Temperature Pulse Rate 97 H 87 Respiratory Rate 22 22 Blood Pressure 209/104 H Pulse Oximetry 98 96 Oxygen Delivery Method 06/03/22 15:00 06/03/22 15:00 06/03/22 15:15 Temperature Pulse Rate 97 H 83 Respiratory Rate 22 Blood Pressure 212/104 H Pulse Oximetry 96 96 Oxygen Delivery Method 06/03/22 15:30 06/03/22 15:30 06/03/22 15:45 Temperature Pulse Rate 98 H Respiratory Rate Blood Pressure 210/98 H 212/100 H Pulse Oximetry 96 Oxygen Delivery Method 06/03/22 15:45 06/03/22 16:00 06/03/22 16:00 Temperature Pulse Rate 102 H 92 H Respiratory Rate 22 22 Blood Pressure 214/97 H Pulse Oximetry 97 98 Oxygen Delivery Method 06/03/22 16:15 06/03/22 16:15 06/03/22 16:34 Temperature 100.4 F H Pulse Rate 94 H Respiratory Rate 24 Blood Pressure 224/102 H Pulse Oximetry 96 Oxygen Delivery Method 06/03/22 16:30 06/03/22 16:30 06/03/22 16:32 Temperature Pulse Rate 96 H Respiratory Rate 22 Blood Pressure 215/99 H 204/95 H Pulse Oximetry 97 Oxygen Delivery Method 06/03/22 16:32 06/03/22 16:39 06/03/22 16:42 Temperature 100.2 F H Pulse Rate 101 H Respiratory Rate Blood Pressure 211/100 H Pulse Oximetry 97 Oxygen Delivery Method 06/03/22 16:42 06/03/22 16:45 06/03/22 16:45 Temperature Pulse Rate 109 H 93 H Respiratory Rate 24 20 Blood Pressure 219/102 H Pulse Oximetry 98 96 Oxygen Delivery Method 06/03/22 17:01 06/03/22 17:03 06/03/22 17:03 Temperature Pulse Rate 106 H 103 H Respiratory Rate Blood Pressure 226/109 H Pulse Oximetry 95 91 Oxygen Delivery Method 06/03/22 17:05 06/03/22 17:05 06/03/22 17:11 Temperature 100.1 F H Pulse Rate 98 H Respiratory Rate 20 Blood Pressure 228/120 H Pulse Oximetry 94 Oxygen Delivery Method 06/03/22 17:11 06/03/22 17:11 06/03/22 17:15 Temperature Pulse Rate 93 H Respiratory Rate 22 Blood Pressure 243/116 H 247/115 H Pulse Oximetry 93 Oxygen Delivery Method 06/03/22 17:15 06/03/22 17:20 06/03/22 17:25 Temperature Pulse Rate 97 H 92 H Respiratory Rate 20 22 Blood Pressure 188/87 H Pulse Oximetry 93 92 Oxygen Delivery Method 06/03/22 17:25 06/03/22 17:35 06/03/22 17:40 Temperature Pulse Rate 100 H 101 H 98 H Respiratory Rate 24 23 21 Blood Pressure Pulse Oximetry 95 95 94 Oxygen Delivery Method MDM - Chest Pain Lab Data Result diagrams: 06/03/22 14:02 06/03/22 14:02 Labs: Lab Results 06/03/22 06/03/22 06/03/22 Range/Units 13:44 14:02 14:02 WBC 8.9 (4.5-11.0) X10^3/uL RBC 5.21 (4.5-5.9) X10^6/uL Hgb 14.2 (13.5-17.5) g/dL Hct 43.4 (41-53) % MCV 83.4 (80-100) fL MCH 27.2 (26-34) PG MCHC 32.6 (30-36) % RDW 15.3 H (11.6-14.8) % Plt Count 218 (150-400) X10^3/uL Neut % (Auto) 75.1 H (50-75) % Lymph % (Auto) 6.2 L (25-40) % [place] % (Auto) 17.2 H (3-14) % Eos % (Auto) 1.1 L (2-4) % Baso % (Auto) 0.4 (0-2) % Neut # (Auto) 6700 (1438-7481) /uL Lymph # (Auto) 500 L (5722-1023) /uL [place] # (Auto) 1500 H (0-900) /uL Eos # (Auto) 100 (0-450) /uL Baso # (Auto) 0 (0-100) /uL PT 12.8 H (10.1-12.7) SECONDS INR 1.1 (0.9-1.3) APTT 30 (26-36) SECONDS Sodium (137-145) mmol/L Potassium (3.4-5.1) mmol/L Chloride (98-107) mmol/L Carbon Dioxide (22-32) mmol/L BUN (9-20) mg/dL Creatinine (0.66-1.25) mg/dL Estimated GFR (>60) mL/min BUN/Creatinine Ratio (6-22) Glucose (70-100) mg/dL Hemoglobin A1c (4.0-6.0) % Lactate (0.7-2.1) mmol/L Calcium (8.4-10.2) mg/dL Magnesium (1.6-2.3) mg/dL Total Bilirubin (0.2-1.3) mg/dL AST (17-59) IU/L ALT (<50) IU/L Alkaline Phosphatase (38-126) U/L Total Creatine Kinase (55-170) U/L CK-MB (CK-2) (<2.37) ng/mL CK-MB (CK-2) Rel Index (1.5-5.0) % Troponin I (0.01-0.034) ng/mL NT-Pro-B Natriuret Pep (<125) pg/mL Total Protein (6.3-8.2) g/dL Albumin (3.5-5.0) g/dL Globulin (1.7-4.1) g/dL Albumin/Globulin Ratio (1.0-2.8) Lipase (23-300) U/L Urine RBC (0-5/HPF) Urine WBC (0-5/HPF) Urine Bacteria (None) SARS-CoV-2 (PCR) Negative (Negative) Influenza A (RT-PCR) (NEGATIVE) Influenza B (RT-PCR) (NEGATIVE) RSV (PCR) (Not Detect) 06/03/22 06/03/22 06/03/22 Range/Units 14:02 14:02 14:02 WBC (4.5-11.0) X10^3/uL RBC (4.5-5.9) X10^6/uL Hgb (13.5-17.5) g/dL Hct (41-53) % MCV (80-100) fL MCH (26-34) PG MCHC (30-36) % RDW (11.6-14.8) % Plt Count (150-400) X10^3/uL Neut % (Auto) (50-75) % Lymph % (Auto) (25-40) % [place] % (Auto) (3-14) % Eos % (Auto) (2-4) % Baso % (Auto) (0-2) % Neut # (Auto) (9561-4019) /uL Lymph # (Auto) (5532-6346) /uL [place] # (Auto) (0-900) /uL Eos # (Auto) (0-450) /uL Baso # (Auto) (0-100) /uL PT (10.1-12.7) SECONDS INR (0.9-1.3) APTT (26-36) SECONDS Sodium 139 (137-145) mmol/L Potassium 3.7 (3.4-5.1) mmol/L Chloride 101 (98-107) mmol/L Carbon Dioxide 28 (22-32) mmol/L BUN 20 (9-20) mg/dL Creatinine 0.98 (0.66-1.25) mg/dL Estimated GFR > 60 (>60) mL/min BUN/Creatinine Ratio 20.4 (6-22) Glucose 137 H (70-100) mg/dL Hemoglobin A1c 8.4 H (4.0-6.0) % Lactate 1.0 (0.7-2.1) mmol/L Calcium 9.4 (8.4-10.2) mg/dL Magnesium 1.7 (1.6-2.3) mg/dL Total Bilirubin 0.6 (0.2-1.3) mg/dL AST 61 H (17-59) IU/L ALT 48 (<50) IU/L Alkaline Phosphatase 99 (38-126) U/L Total Creatine Kinase 903 H (55-170) U/L CK-MB (CK-2) 3.96 H (<2.37) ng/mL CK-MB (CK-2) Rel Index 0.4 L (1.5-5.0) % Troponin I 0.016 (0.01-0.034) ng/mL NT-Pro-B Natriuret Pep (<125) pg/mL Total Protein 8.6 H (6.3-8.2) g/dL Albumin 4.6 (3.5-5.0) g/dL Globulin 4.0 (1.7-4.1) g/dL Albumin/Globulin Ratio 1.2 (1.0-2.8) Lipase 46 (23-300) U/L Urine RBC (0-5/HPF) Urine WBC (0-5/HPF) Urine Bacteria (None) SARS-CoV-2 (PCR) (Negative) Influenza A (RT-PCR) (NEGATIVE) Influenza B (RT-PCR) (NEGATIVE) RSV (PCR) (Not Detect) 06/03/22 06/03/22 06/03/22 Range/Units 15:04 16:20 16:20 WBC (4.5-11.0) X10^3/uL RBC (4.5-5.9) X10^6/uL Hgb (13.5-17.5) g/dL Hct (41-53) % MCV (80-100) fL MCH (26-34) PG MCHC (30-36) % RDW (11.6-14.8) % Plt Count (150-400) X10^3/uL Neut % (Auto) (50-75) % Lymph % (Auto) (25-40) % [place] % (Auto) (3-14) % Eos % (Auto) (2-4) % Baso % (Auto) (0-2) % Neut # (Auto) (8635-3216) /uL Lymph # (Auto) (0337-2184) /uL [place] # (Auto) (0-900) /uL Eos # (Auto) (0-450) /uL Baso # (Auto) (0-100) /uL PT (10.1-12.7) SECONDS INR (0.9-1.3) APTT (26-36) SECONDS Sodium (137-145) mmol/L Potassium (3.4-5.1) mmol/L Chloride (98-107) mmol/L Carbon Dioxide (22-32) mmol/L BUN (9-20) mg/dL Creatinine (0.66-1.25) mg/dL Estimated GFR (>60) mL/min BUN/Creatinine Ratio (6-22) Glucose (70-100) mg/dL Hemoglobin A1c (4.0-6.0) % Lactate (0.7-2.1) mmol/L Calcium (8.4-10.2) mg/dL Magnesium (1.6-2.3) mg/dL Total Bilirubin (0.2-1.3) mg/dL AST (17-59) IU/L ALT (<50) IU/L Alkaline Phosphatase (38-126) U/L Total Creatine Kinase (55-170) U/L CK-MB (CK-2) (<2.37) ng/mL CK-MB (CK-2) Rel Index (1.5-5.0) % Troponin I 0.035 H (0.01-0.034) ng/mL NT-Pro-B Natriuret Pep 169 H (<125) pg/mL Total Protein (6.3-8.2) g/dL Albumin (3.5-5.0) g/dL Globulin (1.7-4.1) g/dL Albumin/Globulin Ratio (1.0-2.8) Lipase (23-300) U/L Urine RBC (0-5/HPF) Urine WBC (0-5/HPF) Urine Bacteria (None) SARS-CoV-2 (PCR) (Negative) Influenza A (RT-PCR) Flu a positive H (NEGATIVE) Influenza B (RT-PCR) Flu b negative (NEGATIVE) RSV (PCR) Negative (Not Detect) 06/03/22 06/03/22 Range/Units 17:35 18:28 WBC (4.5-11.0) X10^3/uL RBC (4.5-5.9) X10^6/uL Hgb (13.5-17.5) g/dL Hct (41-53) % MCV (80-100) fL MCH (26-34) PG MCHC (30-36) % RDW (11.6-14.8) % Plt Count (150-400) X10^3/uL Neut % (Auto) (50-75) % Lymph % (Auto) (25-40) % [place] % (Auto) (3-14) % Eos % (Auto) (2-4) % Baso % (Auto) (0-2) % Neut # (Auto) (1374-3376) /uL Lymph # (Auto) (3893-9480) /uL [place] # (Auto) (0-900) /uL Eos # (Auto) (0-450) /uL Baso # (Auto) (0-100) /uL PT (10.1-12.7) SECONDS INR (0.9-1.3) APTT (26-36) SECONDS Sodium (137-145) mmol/L Potassium (3.4-5.1) mmol/L Chloride (98-107) mmol/L Carbon Dioxide (22-32) mmol/L BUN (9-20) mg/dL Creatinine (0.66-1.25) mg/dL Estimated GFR (>60) mL/min BUN/Creatinine Ratio (6-22) Glucose (70-100) mg/dL Hemoglobin A1c (4.0-6.0) % Lactate (0.7-2.1) mmol/L Calcium (8.4-10.2) mg/dL Magnesium (1.6-2.3) mg/dL Total Bilirubin (0.2-1.3) mg/dL AST (17-59) IU/L ALT (<50) IU/L Alkaline Phosphatase (38-126) U/L Total Creatine Kinase (55-170) U/L CK-MB (CK-2) (<2.37) ng/mL CK-MB (CK-2) Rel Index (1.5-5.0) % Troponin I 0.017 (0.01-0.034) ng/mL NT-Pro-B Natriuret Pep (<125) pg/mL Total Protein (6.3-8.2) g/dL Albumin (3.5-5.0) g/dL Globulin (1.7-4.1) g/dL Albumin/Globulin Ratio (1.0-2.8) Lipase (23-300) U/L Urine RBC None seen (0-5/HPF) Urine WBC None seen (0-5/HPF) Urine Bacteria None seen (None) SARS-CoV-2 (PCR) (Negative) Influenza A (RT-PCR) (NEGATIVE) Influenza B (RT-PCR) (NEGATIVE) RSV (PCR) (Not Detect) Point of Care Testing Glucose POC 126 Urine Dip Bedside Urine Glucose 1000 mg/dl Bedside Urine Bilirubin - Negative Bedside Urine Ketone +/- 5 Urine Specific [place] 1.015 Bedside Urine Occult Blood + Bedside Urine pH 6.0 Bedside Urine Protein + 30 Bedside Urine Urobilinogen 0.2 Bedside Urine Nitrite - Negative Bedside Urine Leukocytes - Negative Esterase Imaging Data Chest x-ray: Radiologist's Impression: Signed Patient: Db Santos MR#: [id number] : 1970 Acct:[id number] Age/Sex: 52 / M Date of Service: 06/03/22 Loc: ED Accession Number: [id number] ?? Procedure: XR chest 1V Ordering Provider: Nadja Salazar D.O. PROCEDURE:? XR CHEST 1V ? INDICATIONS:? chest pain ? TECHNIQUE:? One view of the chest was acquired.? ? COMPARISON:? [facility], CHEST 1 VIEW, 06/23/2017, 22:58. ? FINDINGS:? ? Surgical changes and devices:? Left shoulder prosthesis noted. ? Lungs and pleura:? Moderate vascular congestion.? Normal heart size ? Mediastinum:? Mediastinal contours appear normal.? Heart size is normal.? ? Bones and chest wall:? No suspicious bony lesions.? Overlying soft tissues appear unremarkable.? ? IMPRESSION:? ? Moderate vascular congestion without cardiomegaly or pleural effusion ? ? ? Approved by: Juan Mckeon M.D. on 06/03/2022 at 12:54? ECG Data Interpretation: Normal sinus rhythm rate 94 CA interval 172 QRS 84 QTC 425 T-wave inversion noted in aVL and lead 1 similar to previous EKGs without ST elevations or depressions MDM Narrative Medical decision making narrative: Patient presents today with body aches cough and shortness of breath. Does sound as though he is having some orthopnea with no prior history of congestive heart failure. He developed low-grade temperature here in the ED and is positive for influenza A. Minimal elevation in CPK of 900. He is having some chest discomfort but is extremely hypertensive. CT angio is done to rule out any kind of dissection which is negative I do think that his discomfort is probably from coughing so hard. He has no leukocytosis. Patient seems intermittently be going into atrial fibrillation. But it is not sustained this is not something he is had previously. Ambulation trial his O2 remains well above 90 however his heart rate goes into the 130s he is short of breath and is back into atrial fibrillation. He had a small increase his troponin max out at 0.035 which is not positive. Possibly secondary to tachycardia versus hypertension. However it went back down. No sign of acute coronary syndrome. Due to intermittent atrial fibrillation hypertension influenza Dr. Simpson agrees to accept patient to observation Patient's comorbidities of hypertension hyperlipidemia and diabetes Discharge Plan Departure Patient Disposition: Admitted as Observation Clinical Impression: Influenza A, Hypertension, Atrial fibrillation with rapid ventricular response Admit Date/Time: 06/03/22 19:22 Admit Provider: Jeff Simpson
--- NOTE | 2022-06-03 16:30 | DI.CT.S_ITS ---
PROCEDURE: CT ANGIO CHEST ABDOMEN PELVIS INDICATIONS: chest pain HTN TECHNIQUE: Precontrast 5 mm thick sections acquired from the lung apices to the iliac crests. After the administration of intravenous contrast, 2.5 mm thick sections again acquired from the lung apices to the iliac crests. Maximum intensity projection (MIP) oblique sagittal and coronal reformats were then acquired. For radiation dose reduction, the following was used: automated exposure control. COMPARISON: [facility], CT, ABDOMEN/PELVIS WITH CONTRAST, 06/18/2017, 22:38. [facility], CR, XR CHEST 1V, 06/03/2022, 13:13. FINDINGS: Image quality: There is artifact associated with the metallic hardware. AORTA: On precontrast imaging, no findings hyperdense mural hematomas can be seen. On postcontrast imaging, no findings of dissection can be seen. The thoracic aorta and the abdominal aorta are not aneurysmal. CHEST: Lungs and pleura: No acute airspace opacities. No pleural effusions or pneumothorax. Central and peripheral airways are patent and normal in caliber. Mediastinum: Heart size is normal. No pericardial effusion. No mediastinal or hilar adenopathy by size criteria. Central pulmonary arteries are normal in size. Esophagus is normal in caliber. No hiatal hernias. Bones and chest wall: Left shoulder arthroplasty hardware is partially seen. No axillary adenopathy by size criteria. Thyroid gland demonstrates no significant abnormality. No suspicious bony lesions. No vertebral body compression fractures. Incidental note is made of bilateral gynecomastia. ABDOMEN: Vasculature: Celiac trunk and mesenteric arteries are patent. Renal arteries are also patent. Solid organs: Liver is normal in size and enhancement. Gallbladder wall is not thickened. Biliary system is non dilated. Pancreas enhances normally. Spleen is normal in size and enhancement. Postoperative clips are seen adjacent to the spleen. Focal calcification can be seen involving the right adrenal gland, as on series 5, image 172, which is similar to 2018. Both kidneys are normal in size and enhancement, without hydronephrosis. Peritoneum and bowel: No free fluid or air. Bowel loops are normal in caliber and wall thickness. Mild distal colonic diverticulosis is seen, without findings of active diverticulitis. A normal appendix is incidentally noted. Nodes and vessels: No retroperitoneal or mesenteric adenopathy by size criteria. Inferior vena cava is normal in morphology. Miscellaneous: No ventral hernias. PELVIS: Genitourinary: Bladder wall thickness is normal. Miscellaneous: No inguinal hernias or adenopathy. No ventral hernias. Dense soft tissue calcification versus ossification can be seen involving the left paraspinous region, as on series 4, image 86. Bones: No suspicious bony lesions. No vertebral body compression fractures. Postoperative and degenerative changes can be seen of the lumbosacral region. Mild levoconvex scoliotic curvature is noted. Generalized degenerative changes are seen. There is partial fusion of the sacroiliac joints. IMPRESSION: Negative for acute aortic pathology. No imaging explanation is found for this patient's presenting symptoms. Additional findings: Left shoulder arthroplasty hardware Gynecomastia Right adrenal gland calcification, stable from 2018 and considered to be benign Postoperative clips adjacent to the spleen Normal appendix Minimal distal colonic diverticulosis, without active diverticulitis Dictated by: Blayne Godoy M.D. on 06/03/2022 at 16:04 Approved by: Blayne Godoy M.D. on 06/03/2022 at 16:11
[2022-06-03] MEDS: HYDROMORPHONE 1 MG INJ IV (16:39)
[2022-06-03 16:53] LABS: Troponin I 0.035 ng/mL (0.01-0.034)
--- NOTE | 2022-06-03 17:09 | PC.NURSE ---
Informed provider of the patient highblood pressure prior to pain medication administration. No new orders at that time.
[2022-06-03 17:15] LABS: NT-proBNP (BNP-Adult 18+) 169 pg/mL (<125)
[2022-06-03] MEDS: ASPIRIN 81 MG CHEW TAB 324 MG PO (17:16)
[2022-06-03 18:32] LABS: Bacteria Urine None Seen; RBC Urine None Seen (0-5/HPF); WBC Urine None Seen (0-5/HPF)
[2022-06-03 18:58] LABS: Troponin I 0.017 ng/mL (0.01-0.034)
[2022-06-03] MEDS: METOPROLOL ER 25 MG TABLET PO (19:45)
--- NOTE | 2022-06-03 20:20 | PM.HP.1 ---
History of Present Illness History of Present Illness Date Patient Seen: 06/03/22 Time Patient Seen: 20:20 Chief complaint: chest tightness Narrative: Db Santos is a 52-year-old male with a history of hypertension, hyperlipidemia, asthma, spinal stenosis, MSSA, duodenal ulcer, paraspinal abscess, insulin-dependent diabetes, arthritis, and morbid obesity who presented to the ED complaining body aches fever, chills, shortness of breath, orthopnea, cough and pleuritic chest pain for the past 4-5 days. Patient presented to the ED with hypertensive urgency/emergency blood pressure is 243/116, 226/109, 209/104, and low-grade temp 99.4?. Patient denies nonpruritic chest pain, abdominal pain, nausea, vomiting, diarrhea, constipation, urinary symptoms, weakness, numbness, tingling, headache, recent illness injury falls or trauma. He states on admit that his fever and chills have resolved. Patient reports that he has a boil that is located under his left arm that presented approximately 3-4 weeks ago that approximately a week ago it opened and started draining, and is no longer painful. At the time of admit patient has a low-grade fever 100.1, BP 182/89, HR 97, RR 21, O2 saturation 95% on room air. Patient's CBC is unremarkable with the exception of mono 1500, glucose 137, CK 903, CK-2:3.96, initial troponin is normal but slightly elevated 0.017, urinalysis is negative, BNP 169, total protein 8.9, patient is positive for influenza A. Patient is negative for RSV COVID and influenza B. patient's CTA is negative for PE. Chest x-ray moderate vascular congestion without cardiomegaly or pleural effusion. EKG demonstrates normal sinus rhythm rate 94 T-wave inversion in aVL and lead 1, these findings are similar to previous EKGs without ST changes I have personally reviewed. Patient admitted for observation due to hypertensive urgency/emergency, influenza a and rhabdomyolysis. Patient History Medical History (Updated 06/03/22 @ 20:26 [facility] Asthma Diabetes Duodenal ulcer History of MRSA infection HLD (hyperlipidemia) HTN (hypertension) Hyperlipidemia due to type 2 diabetes mellitus Insulin dependent type 2 diabetes mellitus Spinal stenosis Surgical History Hx of splenectomy Family & Social History Family History Father Hypertension Diabetes mellitus Mother Diabetes mellitus Hypertension Social History: household members spouse,family,children Safety & Behavioral: Feels Safe in Current Yes Environment Been Physically Hurt or No Threatened By a Person Tobacco & Substance use: Smoking Status Never smoker alcohol intake former Substance Use Type does not use Meds Home Medications and Allergies Home Medications Medication Instructions Recorded Confirmed Type albuterol sulfate 90 mcg/actuation 2 puff inhalation Q4-6H PRN 04/15/07 06/03/22 History aerosol inhaler Shortness Of Breath ##0 ascorbic acid (vitamin C) 500 mg 500 mg PO QDAY ##0 07/19/17 06/03/22 History tablet losartan 100 mg tablet (Cozaar) 100 mg PO QDAY #30 tabs 07/19/17 06/03/22 History melatonin 1 mg tablet 10 mg PO HS ##0 07/19/17 06/03/22 History amlodipine 5 mg tablet (Norvasc) 5 mg PO BID 60 days ##0 07/26/17 06/03/22 Rx carvedilol 25 mg tablet 25 mg PO BID 05/23/20 06/03/22 History cetirizine 10 mg tablet 10 mg PO BID 05/23/20 06/03/22 History clonidine HCl 0.2 mg tablet 0.2 mg PO BID 05/23/20 06/03/22 History diazepam 5 mg tablet 5 mg PO BEDTIME 05/23/20 03/14/21 History empagliflozin 25 mg tablet 25 mg PO DAILY 05/23/20 06/03/22 History (Jardiance) furosemide 20 mg tablet 60 mg PO QAM 05/23/20 06/03/22 History insulin glargine 100 unit/mL (3 50 unit SUBCUT QAM 05/23/20 06/03/22 History mL) subcutaneous pen (Lantus Solostar U-100 Insulin) insulin lispro 100 unit/mL 15 - 30 unit SUBCUT TID 05/23/20 06/03/22 History subcutaneous pen (Humalog KwikPen (U-100) Insulin) metformin 850 mg tablet 850 mg PO TID 05/23/20 06/03/22 History rosuvastatin 10 mg tablet 10 mg PO DAILY 05/23/20 06/03/22 History semaglutide 1 mg/dose (2 mg/1.5 1 mg SUBCUT QWEEK 05/23/20 06/03/22 History mL) subcutaneous pen injector (Ozempic) acetaminophen 325 mg tablet 650 mg PO Q6HR PRN Pain, Mild 03/15/21 06/03/22 Rx (1-3) #60 tabs oxycodone 10 mg tablet 5 mg PO Q3HR PRN Pain, Severe 03/15/21 Rx (7-10) #60 tabs Allergies Allergy/AdvReac Type Severity Reaction Status Date / Time cefazolin AdvReac Severe Muscle Pain Verified 03/14/21 09:22 Review of Systems Review of Systems Narrative: All 12 point systems reviewed with the patient and are negative except otherwise documented. Exam Vital Signs (past 8 hours): - 06/03/22 13:27 06/03/22 13:30 06/03/22 13:32 Temperature Pulse Rate 105 H 106 H Respiratory Rate 15 Blood Pressure 209/93 H Pulse Oximetry 97 97 Oxygen Delivery Method 06/03/22 13:32 06/03/22 13:58 06/03/22 13:58 Temperature Pulse Rate 101 H 96 H Respiratory Rate 22 Blood Pressure 189/91 H Pulse Oximetry 96 98 Oxygen Delivery Method 06/03/22 14:00 06/03/22 14:01 06/03/22 14:01 Temperature Pulse Rate 101 H 97 H Respiratory Rate 22 Blood Pressure 193/92 H Pulse Oximetry 97 98 Oxygen Delivery Method 06/03/22 14:30 06/03/22 14:30 06/03/22 15:00 Temperature Pulse Rate 87 Respiratory Rate 22 Blood Pressure 209/104 H 212/104 H Pulse Oximetry 96 Oxygen Delivery Method 06/03/22 15:00 06/03/22 15:15 06/03/22 15:30 Temperature Pulse Rate 97 H 83 Respiratory Rate 22 Blood Pressure 210/98 H Pulse Oximetry 96 96 Oxygen Delivery Method 06/03/22 15:30 06/03/22 15:45 06/03/22 15:45 Temperature Pulse Rate 98 H 102 H Respiratory Rate 22 Blood Pressure 212/100 H Pulse Oximetry 96 97 Oxygen Delivery Method 06/03/22 16:00 06/03/22 16:00 06/03/22 16:15 Temperature Pulse Rate 92 H Respiratory Rate 22 Blood Pressure 214/97 H 224/102 H Pulse Oximetry 98 Oxygen Delivery Method 06/03/22 16:15 06/03/22 16:34 06/03/22 16:30 Temperature 100.4 F H Pulse Rate 94 H Respiratory Rate 24 Blood Pressure 215/99 H Pulse Oximetry 96 Oxygen Delivery Method 06/03/22 16:30 06/03/22 16:32 06/03/22 16:32 Temperature Pulse Rate 96 H 101 H Respiratory Rate 22 Blood Pressure 204/95 H Pulse Oximetry 97 97 Oxygen Delivery Method 06/03/22 16:39 06/03/22 16:42 06/03/22 16:42 Temperature 100.2 F H Pulse Rate 109 H Respiratory Rate 24 Blood Pressure 211/100 H Pulse Oximetry 98 Oxygen Delivery Method 06/03/22 16:45 06/03/22 16:45 06/03/22 17:01 Temperature Pulse Rate 93 H 106 H Respiratory Rate 20 Blood Pressure 219/102 H Pulse Oximetry 96 95 Oxygen Delivery Method 06/03/22 17:03 06/03/22 17:03 06/03/22 17:05 Temperature Pulse Rate 103 H 98 H Respiratory Rate 20 Blood Pressure 226/109 H Pulse Oximetry 91 94 Oxygen Delivery Method 06/03/22 17:05 06/03/22 17:11 06/03/22 17:11 Temperature 100.1 F H Pulse Rate Respiratory Rate Blood Pressure 228/120 H 243/116 H Pulse Oximetry Oxygen Delivery Method 06/03/22 17:11 06/03/22 17:15 06/03/22 17:15 Temperature Pulse Rate 93 H 97 H Respiratory Rate 22 20 Blood Pressure 247/115 H Pulse Oximetry 93 93 Oxygen Delivery Method 06/03/22 17:20 06/03/22 17:25 06/03/22 17:25 Temperature Pulse Rate 92 H 100 H Respiratory Rate 22 24 Blood Pressure 188/87 H Pulse Oximetry 92 95 Oxygen Delivery Method 06/03/22 17:35 06/03/22 17:40 06/03/22 17:45 Temperature Pulse Rate 101 H 98 H 98 H Respiratory Rate 23 21 21 Blood Pressure Pulse Oximetry 95 94 92 Oxygen Delivery Method 06/03/22 17:50 06/03/22 17:55 06/03/22 18:00 Temperature Pulse Rate 105 H 101 H 93 H Respiratory Rate 23 18 20 Blood Pressure Pulse Oximetry 95 94 92 Oxygen Delivery Method 06/03/22 18:05 06/03/22 18:10 06/03/22 18:15 Temperature Pulse Rate 99 H 86 92 H Respiratory Rate 22 20 20 Blood Pressure Pulse Oximetry 93 92 93 Oxygen Delivery Method 06/03/22 18:20 06/03/22 18:25 06/03/22 18:30 Temperature Pulse Rate 91 H 106 H 102 H Respiratory Rate 20 26 H 23 Blood Pressure Pulse Oximetry 92 95 96 Oxygen Delivery Method 06/03/22 18:35 06/03/22 18:40 06/03/22 18:45 Temperature Pulse Rate 101 H 98 H 91 H Respiratory Rate 23 23 21 Blood Pressure Pulse Oximetry 95 94 91 Oxygen Delivery Method 06/03/22 18:50 06/03/22 18:55 06/03/22 19:00 Temperature Pulse Rate 92 H 102 H 89 Respiratory Rate 22 23 25 H Blood Pressure Pulse Oximetry 92 95 91 Oxygen Delivery Method 06/03/22 19:05 06/03/22 19:10 06/03/22 19:16 Temperature Pulse Rate 95 H 104 H Respiratory Rate 18 27 H Blood Pressure Pulse Oximetry 88 L 94 94 Oxygen Delivery Method 06/03/22 19:18 06/03/22 19:20 06/03/22 19:45 Temperature Pulse Rate 104 H 100 H 97 H Respiratory Rate 22 21 Blood Pressure 182/89 H Pulse Oximetry 93 95 Oxygen Delivery Method Room Air 06/03/22 19:22 06/03/22 19:22 06/03/22 19:25 Temperature Pulse Rate 97 H 92 H Respiratory Rate 21 21 Blood Pressure 181/93 H Pulse Oximetry 95 95 Oxygen Delivery Method 06/03/22 19:30 06/03/22 19:35 06/03/22 19:40 Temperature Pulse Rate 93 H 90 100 H Respiratory Rate 20 Blood Pressure Pulse Oximetry 96 96 98 Oxygen Delivery Method 06/03/22 19:45 06/03/22 19:45 06/03/22 19:50 Temperature Pulse Rate 101 H 96 H Respiratory Rate Blood Pressure 182/89 H Pulse Oximetry 97 98 Oxygen Delivery Method 06/03/22 19:55 06/03/22 20:00 06/03/22 20:05 Temperature Pulse Rate 97 H 83 90 Respiratory Rate 20 19 Blood Pressure Pulse Oximetry 97 95 95 Oxygen Delivery Method 06/03/22 20:10 Temperature Pulse Rate 86 Respiratory Rate 19 Blood Pressure Pulse Oximetry 96 Oxygen Delivery Method Oxygen Delivery Method Room Air Narrative Exam Narrative: General: Patient is a pleasant morbidly obese male, in no distress at this time. HEENT: Normocephalic, atraumatic, extraocular muscles intact, oral pharynx is clear and mucous membranes are dry. Neck is supple and symmetric, trachea is midline, no adenopathy, no thyroid enlargement, nontender, no masses palpated. Negative for JVD Chest: Normal, symmetric motion, no nasal flaring, retractions, or tachypneic, but mildly labored breathing Lungs: Auscultation of all lung [place] diffusely coarse, decreased poor air exchange, mild crackles noted in bilateral bases. Cardio: regular rate and rhythm without murmur, rubs, or gallops, no carotid bruit, no cardiac pulsations present. Abdomen: Soft nontender, negative for organomegaly, or masses. Bowel sounds are hyperactivepresent in all 4 quadrants without guarding or rebound, no CVA tenderness. Musculoskeletal: Muscle strength and tone are equal within normal limits, no deformity, crepitus, effusions, cyanosis, clubbing. Positive equal bilateral pitting +3 edema in lower extremities. Full range of motion intact radial and pedal pulses are normal. Skin: Warm dry and intact without rashes, ulcerations or petechiae. With the exception of noted open small abscess wound draining under left arm in skin fold, without surrounding erythema or inflammation. Neuro: Alert and orientated x3, strength is +5/5 in all extremities, sensation to touch intact, no gross deficits noted of cranial nerves. Psych: Patient has a well-kept appearance, appropriate affect, mental status attitude thought context and judgment are appropriate for age. Objective Labs Result Diagrams: 06/03/22 14:02 06/03/22 14:02 Labs: Laboratory Results - last 24 hr 06/03/22 06/03/22 06/03/22 13:44 14:02 14:02 WBC 8.9 RBC 5.21 Hgb 14.2 Hct 43.4 MCV 83.4 MCH 27.2 MCHC 32.6 RDW 15.3 H Plt Count 218 Neut % (Auto) 75.1 H Lymph % (Auto) 6.2 L [place] % (Auto) 17.2 H Eos % (Auto) 1.1 L Baso % (Auto) 0.4 Neut # (Auto) 6700 Lymph # (Auto) 500 L [place] # (Auto) 1500 H Eos # (Auto) 100 Baso # (Auto) 0 PT 12.8 H INR 1.1 APTT 30 Sodium Potassium Chloride Carbon Dioxide BUN Creatinine Estimated GFR BUN/Creatinine Ratio Glucose Lactate Calcium Magnesium Total Bilirubin AST ALT Alkaline Phosphatase Total Creatine Kinase CK-MB (CK-2) CK-MB (CK-2) Rel Index Troponin I NT-Pro-B Natriuret Pep Total Protein Albumin Globulin Albumin/Globulin Ratio Lipase Urine RBC Urine WBC Urine Bacteria SARS-CoV-2 (PCR) Negative Influenza A (RT-PCR) Influenza B (RT-PCR) RSV (PCR) 06/03/22 06/03/22 06/03/22 14:02 14:02 15:04 WBC RBC Hgb Hct MCV MCH MCHC RDW Plt Count Neut % (Auto) Lymph % (Auto) [place] % (Auto) Eos % (Auto) Baso % (Auto) Neut # (Auto) Lymph # (Auto) [place] # (Auto) Eos # (Auto) Baso # (Auto) PT INR APTT Sodium 139 Potassium 3.7 Chloride 101 Carbon Dioxide 28 BUN 20 Creatinine 0.98 Estimated GFR > 60 BUN/Creatinine Ratio 20.4 Glucose 137 H Lactate 1.0 Calcium 9.4 Magnesium 1.7 Total Bilirubin 0.6 AST 61 H ALT 48 Alkaline Phosphatase 99 Total Creatine Kinase 903 H CK-MB (CK-2) 3.96 H CK-MB (CK-2) Rel Index 0.4 L Troponin I 0.016 NT-Pro-B Natriuret Pep Total Protein 8.6 H Albumin 4.6 Globulin 4.0 Albumin/Globulin Ratio 1.2 Lipase 46 Urine RBC Urine WBC Urine Bacteria SARS-CoV-2 (PCR) Influenza A (RT-PCR) Flu a positive H Influenza B (RT-PCR) Flu b negative RSV (PCR) Negative 06/03/22 06/03/22 06/03/22 16:20 16:20 17:35 WBC RBC Hgb Hct MCV MCH MCHC RDW Plt Count Neut % (Auto) Lymph % (Auto) [place] % (Auto) Eos % (Auto) Baso % (Auto) Neut # (Auto) Lymph # (Auto) [place] # (Auto) Eos # (Auto) Baso # (Auto) PT INR APTT Sodium Potassium Chloride Carbon Dioxide BUN Creatinine Estimated GFR BUN/Creatinine Ratio Glucose Lactate Calcium Magnesium Total Bilirubin AST ALT Alkaline Phosphatase Total Creatine Kinase CK-MB (CK-2) CK-MB (CK-2) Rel Index Troponin I 0.035 H NT-Pro-B Natriuret Pep 169 H Total Protein Albumin Globulin Albumin/Globulin Ratio Lipase Urine RBC None seen Urine WBC None seen Urine Bacteria None seen SARS-CoV-2 (PCR) Influenza A (RT-PCR) Influenza B (RT-PCR) RSV (PCR) 06/03/22 18:28 WBC RBC Hgb Hct MCV MCH MCHC RDW Plt Count Neut % (Auto) Lymph % (Auto) [place] % (Auto) Eos % (Auto) Baso % (Auto) Neut # (Auto) Lymph # (Auto) [place] # (Auto) Eos # (Auto) Baso # (Auto) PT INR APTT Sodium Potassium Chloride Carbon Dioxide BUN Creatinine Estimated GFR BUN/Creatinine Ratio Glucose Lactate Calcium Magnesium Total Bilirubin AST ALT Alkaline Phosphatase Total Creatine Kinase CK-MB (CK-2) CK-MB (CK-2) Rel Index Troponin I 0.017 NT-Pro-B Natriuret Pep Total Protein Albumin Globulin Albumin/Globulin Ratio Lipase Urine RBC Urine WBC Urine Bacteria SARS-CoV-2 (PCR) Influenza A (RT-PCR) Influenza B (RT-PCR) RSV (PCR) Assessment & Plan Assessment & Plan narrative: Db Santos is a 52-year-old male with a history of hypertension, hyperlipidemia, asthma, spinal stenosis, MSSA, duodenal ulcer, paraspinal abscess, insulin-dependent diabetes, arthritis, and morbid obesity who presented to the ED complaining body aches fever, chills, shortness of breath, with hypertensive urgency/emergency. Patient admitted for observation due to hypertensive urgency/emergency, influenza a and rhabdomyolysis. At the time of admit patient has a low-grade fever 100.1, BP 182/89, HR 97, RR 21, O2 saturation 95% on room air. Patient's CBC is unremarkable with the exception of mono 1500, glucose 137, CK 903, , urinalysis is negative, BNP 169, total protein 8.9, patient is positive for influenza A. Patient is negative for RSV COVID and influenza B. patient's CTA is negative for PE. Chest x-ray moderate vascular congestion without cardiomegaly or pleural effusion. Patient admitted for observation due to hypertensive urgency/emergency, influenza a and rhabdomyolysis. 1. Hypertensive urgency/emergency, acute on chronic in the setting of essential hypertension, present on admission -likely secondary to influenza a -In ED: 243/116, 226/109, 209/104, and low-grade temp 99.4? -On Admit: 100.1, BP 182/89, HR 97, RR 21, O2 saturation 95% on room air. -EKG demonstrates normal sinus rhythm rate 94 T-wave inversion in aVL and lead 1, these findings are similar to previous EKGs without ST changes I have personally reviewed. - CK-2:3.96, troponin 0.017-trend x2 -IV metoprolol as needed -continue carvedilol, losartan, Lasix 2. Influenza a, acute, present on admission -symptom management -respiratory consult, DuoNebs q.4 hours while awake, incentive spirometry -prednisone 40 mg q.day, guaifenesin, Tessalon Perles -patient negative for COVID, RSV, influenza B -CTA is negative for PE. -Chest x-ray moderate vascular congestion without cardiomegaly or pleural effusion. 3. Rhabdomyolysis, acute, present on admission -CK 903 -fluid resuscitation NS at 60 4. Insulin-dependent type 2 diabetes with hyperlipidemia, acute on chronic, present on admission -patient admitted under diabetic protocols -ordered A1c -Lantus 30 units b.i.d., high-dose sliding scale for coverage -hold patient's Jardiance and metformin -continue Rovastatin 5. Asthma, chronic, present on admission -using nebulizers in place patient's albuterol HFA inhaler, continue Advair if available. 6. Morbid obesity, acute on chronic, present on admission -dietary consult ordered regarding nutritional education and information for dietary, lifestyle, exercise, and weight changes. -the patient is at much higher risk for medical and surgical complications due to obesity as it relates to chronic illnesses:, and acute illness. The patient's obesity increases the difficulty and complexity of medical and/or surgical interventions, management and increases the chances of poor outcome such as morbidity and mortality as well as impaired wound healing. Code status:Full Surrogate decision maker: Mary Grace Danielle COVID PCR: Negative DVT/VTE prophylaxis: Lovenox and SCDs Disposition: I have utilized all available immediate resources to obtain, update, or review the patient's current medications. Exception-the patient is not eligible for medication reconciliation; the patient is in an emergent medical situation were delaying treatment would jeopardize the patient's health. I confirmed that the patient's advanced care plan is present, Code status is documented and/or surrogate decision maker is listed in the patient's medical record. I have personally reviewed patient's chart notes from PCP, specialists, diagnostic imaging, and laboratory, Time Spent With Patient Critical Care time: I spent a total of [] minutes of critical care time on this patient's care today; this time is exclusive of procedural time.
[2022-06-03 20:39] LABS: Hemoglobin A1C% w Est Avg Glu 8.4 % (4.0-6.0)
[2022-06-03] MEDS: carvediloL 12.5 MG TABLET 25 MG PO (22:17)
[2022-06-03] MEDS: LACTATED RINGERS 1,000 ML 80 ML IV (22:17)
[2022-06-03] MEDS: ATORVASTATIN 20 MG TABLET PO (22:17)
[2022-06-03] MEDS: MELATONIN 3 MG TABLET 9 MG PO (22:18)
[2022-06-04] VITALS (10 sets, daily range): BP systolic 134–170; BP diastolic 77–92; PULSE 82–95; RESP 19–22; TEMP 36.9–37.7; O2SAT 93–99
[2022-06-04] MEDS: INSULIN GLARGINE 100 UNIT/ML 3ML PEN 30 UNIT SUBCUT ×3 (00:02→21:33)
[2022-06-04] MEDS: ALBUTEROL/IPRATROPIUM 3 ML AMPUL INH ×5 (00:09→23:50)
[2022-06-04] MEDS: CODEINE/GUAIFENESIN LIQUID 5ML UDC 10 ML PO ×3 (03:09→23:41)
[2022-06-04] MEDS: OXYCODONE IR 5 MG TABLET PO ×2 (04:54→09:06)
--- NOTE | 2022-06-04 07:06 | PC.NURSE ---
Admit/NOC Shift Note- Patient arrived to room from ER at 1999. Patient alert and oriented and able to make needs known to staff. admit questionbs done, meds reviewed, physical assessemnt done, and skin check completed. Patient oriented to bed and bed controls, room, bathroom, lights, phone, menu, and call saucedo/tv remote. SCDs applied. Patient argrees to call for assistance. Safety measures in place. Call saucedo and phone within reach. will continue to monitor.
--- NOTE | 2022-06-04 07:26 | DI.ECHO.S_ITS ---
[facility]---------+ [facility] +---------+ : : [address] : : : : [id number] : : : : Phone: [phone]---------+ Echocardiogram Report + + :Name: CHERYL CASTELLANOS Study Date: 06/04/2022 Height: 75 in : :[facility] ReadingLocation: Weight: 406 lb : : Gender: Male BSA: 3.0 m2 : :: 1970 Age: 52 yrs BP: 174/91 mmHg: :Reason For Study: AFIB RVR : : Performed By: Hemant Yoon : :Referring: ANTOLIN CARVAJAL : + + Interpretation Summary 1) Mildly increased left ventricular thickness (concentric) with normal, size, and normal systolic function (EF 60-65%). 2) Normal right ventricular size and function. 3) No significant valvular abnormalities. 4) Hypertension present during the study (BP 174/91mmHg). 5) Compared to the Echo done 06/22/2017, no significant change. Procedure: A two-dimensional transthoracic echocardiogram with color flow and Doppler was performed. The study quality was technically difficult. Comparison is made with the echocardiogram of 06/22/18. A contrast injection of Definity was performed to improve assessment of LV function. The patient was in normal sinus rhythm during the exam. Left Ventricle: The left ventricle is normal in size. Left ventricular wall thickness is mildly increased. The ejection fraction is estimated to be 60- 65%. There are no obvious focal wall motion abnormalities noted but poor endocardial definition reduces the sensitivity for the detection of such. Right Ventricle: The right ventricle grossly appears normal in size with probable normal systolic function. Atria: The left atrial size is normal. Right atrium not well visualized. There is no Doppler evidence for an atrial septal defect. Mitral Valve: The mitral valve is normal in structure and function. There is no mitral regurgitation noted. Aortic Valve: The aortic valve opens well. There is no aortic valve stenosis. No aortic regurgitation is present. Tricuspid Valve: The tricuspid valve is normal in structure and function. There is trace tricuspid regurgitation. The right ventricular systolic pressure is estimated to be at least 25 mmHg based on an estimated right atrial pressure of 3 mm Hg. Pulmonic Valve: The pulmonic valve is not well visualized. Great Vessels: The aortic root is normal size. The ascending aorta is mildly enlarged. The pulmonary artery is normal size. The IVC is of normal diameter and collapses greater than 50% with a sniff. This suggests a low right atrial pressure of 3 mm Hg. Pericardium/ Pleura There is no pericardial effusion. There is no pleural effusion. MMode/2D Measurements & Calculations LVIDd: 5.0 cm LVOT diam: 2.4 cm LVIDs: 2.8 cm Ao root diam: 3.4 cm FS: 43.5 % asc Aorta Diam: 3.6 cm EPSS: 0.76 cm IVSd: 1.2 cm LVPWd: 1.3 cm LV plata. diameter/BSA (cm/m^2): 1.7 LV sys. diameter/BSA (cm/m^2): 0.95 LA A2 area: 17.8 cm2 IVC diam: 1.1 cm LA A4 area: 21.7 cm2 LA length (vol): 5.2 cm LA vol: 63.6 ml LA vol index: 21.5 ml/m2 TAPSE: 2.0 cm Doppler Measurements & Calculations Ao V2 max: 157.5 cm/sec LVOT Max Magdaleno: 104.6 cm/sec Ao V2 mean: 127.1 cm/sec LV V1 max P.4 mmHg Ao max P.9 mmHg LV V1 VTI: 19.2 cm Ao mean P.7 mmHg TAMEKA(I,D): 3.4 cm2 Ao V2 VTI: 25.7 cm TAMEKA(V,D): 3.0 cm2 sev ratio: 0.75 TAMEKA indexed to BSA (cm^2/m^2): 1.1 MV E max magdaleno: 85.2 cm/sec TR max magdaleno: 233.8 cm/sec MV A max magdaleno: 54.8 cm/sec TR max P.9 mmHg MV E/A: 1.6 PA V2 max: 61.9 cm/sec Med Peak E' Magdaleno: 5.9 cm/sec PA V2 mean: 50.3 cm/sec E/E' med: 14.5 PA mean P.1 mmHg Lat Peak E' Magdaleno: 5.1 cm/sec PA pr(Accel): 49.9 mmHg E/E' lat: 16.6 E/e' average: 15.6 MV dec time: 0.14 sec SV(LVOT): 86.9 ml Reading Physician:12:25 PM
[2022-06-04 08:52] LABS: Add Manual Diff / Slide Review NO; Basophils Absolute Auto 0 /uL (0-100); Basophils Percent Auto 0.5 % (0-2); Eosinophils Absolute Auto 0 /uL (0-450); Eosinophils Percent Auto 0.3 % (2-4); Hematocrit 40.9 % (41-53); Hemoglobin 13.2 g/dL (13.5-17.5); Lymphocytes Absolute Auto 900 /uL (1100-4500); Lymphocytes Percent Auto 12.6 % (25-40); Mean Corpuscular HGB Conc 32.3 % (30-36); Mean Corpuscular Hemoglobin 27.1 PG (26-34); Mean Corpuscular Volume 83.8 fL (80-100); Monocytes Absolute Auto 1200 /uL (0-900); Neutrophils Absolute Auto 4800 /uL (1500-7000); Neutrophils Percent Auto 69.6 % (50-75); Platelet Count 186 X10^3/uL (150-400); Red Blood Cell Count 4.88 X10^6/uL (4.5-5.9); Red Cell Distribution Width 15.2 % (11.6-14.8)
[2022-06-04 09:05] LABS: BUN Creatinine Ratio 20.5 (6-22); Blood Urea Nitrogen 18 mg/dL (9-20); Calcium 8.5 mg/dL (8.4-10.2); Carbon Dioxide 27 mmol/L (22-32); Chloride 100 mmol/L (98-107); Estimated Glomerular Filt Rate > 60 mL/min (>60); Glucose 144 mg/dL (70-100); HEMOLYSIS < 15 (0-50); Magnesium 1.9 mg/dL (1.6-2.3); Potassium 3.6 mmol/L (3.4-5.1); Sodium 136 mmol/L (137-145)
[2022-06-04] MEDS: BENZONATATE 100 MG CAPSULE PO ×2 (09:06→21:32)
[2022-06-04] MEDS: ENOXAPARIN 40 MG/0.4 ML SYRINGE SUBCUT ×2 (09:06→21:31)
[2022-06-04] MEDS: predniSONE 20 MG TABLET 40 MG PO (09:07)
[2022-06-04] MEDS: carvediloL 12.5 MG TABLET 25 MG PO ×2 (09:07→21:32)
[2022-06-04 09:15] LABS: NT-proBNP (BNP-Adult 18+) 136 pg/mL (<125)
[2022-06-04 09:17] LABS: Troponin I 0.014 ng/mL (0.01-0.034)
[2022-06-04 09:23] LABS: Procalcitonin 0.11 ng/mL (<0.5)
[2022-06-04] MEDS: INSULIN LISPRO 100 UNIT/ML 3ML VIAL SUBCUT ×4 (09:24→21:35)
[2022-06-04 12:05] LABS: Troponin I 0.013 ng/mL (0.01-0.034)
[2022-06-04] MEDS: OSELTAMIVIR 75 MG CAPSULE PO ×2 (12:19→22:14)
--- NOTE | 2022-06-04 13:57 | CM.DANOTE ---
Patient is a 52 yo male who was admitted on 06/03/22 for Chest Tightness. Pt has [employer] for insurance and his PCP is Jose Alfredo Valle. EMR was reviewed. Per MD, pt admitted for hypertensive emergency, influenza A and rhabdo. SW met briefly bedside with pt and explained role and pt confirms he still lives in [place] with his spouse, adult son, and 2 younger children in a mobile home. Pt still has not been able to work much and last admission was Jun 2021 this year under his L&I and was able to d/c home with a HH referral made involving his L&I casemanager Arvizu at [phone] and unclear if HH was able to be auth'd. 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 Preference is home with family when medically stable. Plan: SW to follow closely for face cleaner consult, Echo, and any further identified discharge planning needs. GANGA Krause Discharge Planning/Care Management CM Discharge Assessment Start: 06/04/22 13:54 Freq: Status: Active Protocol: Document 06/04/22 13:55 BF (Rec: 06/04/22 13:57 BF [id number]) Discharge Planning Assessment Assigned Product Management Manager GANGA Sandra DPOA/Assigned Designee Name Mary Grace Santos Advance Directives? No Advance Directives on File Yes History Provided By Patient,Medical Record Has Patient been admitted in last 30 No days? Comment last admission Jun 2021 Prior Living Arrangements House Household Members spouse,family,children Type of transporation used prior to Drives own vehicle admit Independent with ADL's Yes Is patient alert and oriented? Yes Caregiver for Another Yes: younger children in the home DME Already Rented / Owned FWW / Walker Comment r/o possible HH Barriers to Discharge No Discharge Plan Home Transportation Arrangement Family Additional Comment follow to r/o possible HH Review Status In Process Please Provide Date Initial DC 06/04/22 Assessment Was Performed Next Review Type Continued Stay Review
--- NOTE | 2022-06-04 15:10 | P.PN_ITS ---
Subjective Subjective Date Patient Seen: 06/04/22 Interval history: Continues to feel ill, weak, short of breath especially with exertion or lying flat, difficult time tolerating his echo this AM. Exam Vital Signs (past 8 hours): - 06/04/22 09:07 06/04/22 09:00 06/04/22 08:45 Temperature 99.8 F H Pulse Rate 82 82 Respiratory Rate 21 Blood Pressure 170/92 H 170/92 H Pulse Oximetry 97 Oxygen Delivery Method Room Air Oxygen Flow Rate 0 06/04/22 13:00 Temperature 99.1 F Pulse Rate 93 H Respiratory Rate 20 Blood Pressure 158/89 H Pulse Oximetry 95 Oxygen Delivery Method Oxygen Flow Rate 0 Oxygen Delivery Method Room Air Oxygen Flow Rate 0 Narrative Exam Narrative: General:? Patient is well developed and well nourished, in no distress at this time. Obese with BMI 50.8 HEENT:? Normocephalic, atraumatic, extraocular muscles intact, oral pharynx is clear and mucous membranes are moist. Neck: supple and symmetric, trachea is midline, no cervical adenopathy. Negative for JVD Chest:? Normal AP diameter and contour without kyphoscoliosis, no tachypnea, equal chest rise bilaterally. Lungs:?diminished breath sounds bilateral lung bases, upper lung inspiratory wheezes bilaterally. Cardio:?RRR no m/r/g. Abdomen: S NT ND. Musculoskeletal:? Muscle strength and tone are equal within normal limits, no deformity. Extremities:chronic bilateral lower extremity non pitting lymphedema, no joint effusions. No cyanosis or clubbing. Skin:? Pale,? Warm to touch,dry and intact without rashes, ulcerations or petechiae.? Neuro:? Alert and orientated x3,? sensation to touch intact in all extremities, no gross deficits noted of cranial nerves. Psych:? Patient has a well-kept appearance, appropriate affect, mental status attitude thought context and judgment are appropriate for age. Objective Labs Result Diagrams: 06/04/22 08:36 06/04/22 06:36 Labs: Laboratory Results - last 24 hr 06/03/22 06/03/22 06/03/22 14:02 14:02 15:04 WBC RBC Hgb Hct MCV MCH MCHC RDW Plt Count Neut % (Auto) Lymph % (Auto) [place] % (Auto) Eos % (Auto) Baso % (Auto) Neut # (Auto) Lymph # (Auto) [place] # (Auto) Eos # (Auto) Baso # (Auto) Sodium Potassium Chloride Carbon Dioxide BUN Creatinine Estimated GFR BUN/Creatinine Ratio Glucose Hemoglobin A1c 8.4 H Lactate 1.0 Calcium Magnesium Troponin I C-Reactive Protein NT-Pro-B Natriuret Pep Procalcitonin Urine RBC Urine WBC Urine Bacteria Nasal Screen MRSA (PCR) Influenza A (RT-PCR) Flu a positive H Influenza B (RT-PCR) Flu b negative RSV (PCR) Negative 06/03/22 06/03/22 06/03/22 16:20 16:20 17:35 WBC RBC Hgb Hct MCV MCH MCHC RDW Plt Count Neut % (Auto) Lymph % (Auto) [place] % (Auto) Eos % (Auto) Baso % (Auto) Neut # (Auto) Lymph # (Auto) [place] # (Auto) Eos # (Auto) Baso # (Auto) Sodium Potassium Chloride Carbon Dioxide BUN Creatinine Estimated GFR BUN/Creatinine Ratio Glucose Hemoglobin A1c Lactate Calcium Magnesium Troponin I 0.035 H C-Reactive Protein NT-Pro-B Natriuret Pep 169 H Procalcitonin Urine RBC None seen Urine WBC None seen Urine Bacteria None seen Nasal Screen MRSA (PCR) Influenza A (RT-PCR) Influenza B (RT-PCR) RSV (PCR) 06/03/22 06/04/22 06/04/22 18:28 00:15 06:36 WBC RBC Hgb Hct MCV MCH MCHC RDW Plt Count Neut % (Auto) Lymph % (Auto) [place] % (Auto) Eos % (Auto) Baso % (Auto) Neut # (Auto) Lymph # (Auto) [place] # (Auto) Eos # (Auto) Baso # (Auto) Sodium 136 L Potassium 3.6 Chloride 100 Carbon Dioxide 27 BUN 18 Creatinine 0.88 Estimated GFR > 60 BUN/Creatinine Ratio 20.5 Glucose 144 H Hemoglobin A1c Lactate Calcium 8.5 Magnesium 1.9 Troponin I 0.017 C-Reactive Protein NT-Pro-B Natriuret Pep Procalcitonin Urine RBC Urine WBC Urine Bacteria Nasal Screen MRSA (PCR) Negative for mrsa Influenza A (RT-PCR) Influenza B (RT-PCR) RSV (PCR) 06/04/22 06/04/22 06/04/22 06:36 08:35 08:36 WBC 7.0 RBC 4.88 Hgb 13.2 L Hct 40.9 L MCV 83.8 MCH 27.1 MCHC 32.3 RDW 15.2 H Plt Count 186 Neut % (Auto) 69.6 Lymph % (Auto) 12.6 L [place] % (Auto) 17.0 H Eos % (Auto) 0.3 L Baso % (Auto) 0.5 Neut # (Auto) 4800 Lymph # (Auto) 900 L [place] # (Auto) 1200 H Eos # (Auto) 0 Baso # (Auto) 0 Sodium Potassium Chloride Carbon Dioxide BUN Creatinine Estimated GFR BUN/Creatinine Ratio Glucose Hemoglobin A1c Lactate Calcium Magnesium Troponin I 0.014 C-Reactive Protein 4.0 H NT-Pro-B Natriuret Pep 136 H Procalcitonin 0.11 Urine RBC Urine WBC Urine Bacteria Nasal Screen MRSA (PCR) Influenza A (RT-PCR) Influenza B (RT-PCR) RSV (PCR) 06/04/22 11:05 WBC RBC Hgb Hct MCV MCH MCHC RDW Plt Count Neut % (Auto) Lymph % (Auto) [place] % (Auto) Eos % (Auto) Baso % (Auto) Neut # (Auto) Lymph # (Auto) [place] # (Auto) Eos # (Auto) Baso # (Auto) Sodium Potassium Chloride Carbon Dioxide BUN Creatinine Estimated GFR BUN/Creatinine Ratio Glucose Hemoglobin A1c Lactate Calcium Magnesium Troponin I 0.013 C-Reactive Protein NT-Pro-B Natriuret Pep Procalcitonin Urine RBC Urine WBC Urine Bacteria Nasal Screen MRSA (PCR) Influenza A (RT-PCR) Influenza B (RT-PCR) RSV (PCR) [facility] Medical History (Updated 06/03/22 @ 20:26 by KINZA Lambert) Asthma Diabetes Duodenal ulcer History of MRSA infection HLD (hyperlipidemia) HTN (hypertension) Hyperlipidemia due to type 2 diabetes mellitus Insulin dependent type 2 diabetes mellitus Spinal stenosis Surgical History Hx of splenectomy Family History Father Hypertension Diabetes mellitus Mother Diabetes mellitus Hypertension Social History household members: spouse, family and children Smoking Status: Never smoker alcohol intake: former Assessment & Plan Assessment & Plan narrative: Db Santos is a 52-year-old male with a history of hypertension, hyperlipidemia, asthma, spinal stenosis, MSSA, duodenal ulcer, paraspinal abscess, insulin-dependent diabetes, arthritis, and morbid obesity who presented to the ED complaining body aches fever, chills, shortness of breath, with hypertensive urgency/emergency. Patient admitted due to hypertensive urgency/emergency, influenza a with asthma exacerbation, and rhabdomyolysis. 1. Hypertensive urgency/emergency, acute on chronic in the setting of essential hypertension, present on admission -continued carvedilol, losartan, Lasix with improvement today. 2. Influenza a, acute, present on admission with asthma exacerbation -symptom management, symptoms started 2 days ago will start tamiflu after risk benefit discussion and shared decision making with patient. -respiratory consult, DuoNebs q.4 hours while awake, incentive spirometry -prednisone 40 mg q.day, guaifenesin, Tessalon Perles -patient negative for COVID, RSV, influenza B -CTA is negative for PE. -Chest x-ray moderate vascular congestion without cardiomegaly or pleural effusion. 3. Rhabdomyolysis, acute, present on admission -CK 903 on admit -can try oral rehydration given orthopnea today, recheck CK tomorrow. 4. Insulin-dependent type 2 diabetes with hyperlipidemia, acute on chronic, present on admission -patient admitted under diabetic protocols -A1c 8.8% -Lantus 30 units b.i.d., high-dose sliding scale for coverage -hold patient's Jardiance and metformin -continue Rovastatin 5. Asthma, acute chronic, present on admission with exacerbation -duoneb and albuterol prn -prednisone as noted above. 6. Morbid obesity, acute on chronic, present on admission -dietary consult ordered regarding nutritional education and information for dietary, lifestyle, exercise, and weight changes. -the patient is at much higher risk for medical and surgical complications due to obesity as it relates to chronic illnesses:, and acute illness. The patient's obesity increases the difficulty and complexity of medical and/or surgical interventions, management and increases the chances of poor outcome such as morbidity and mortality as well as impaired wound healing. Code status:Full Surrogate decision maker: Mary Grace Santos COVID PCR: Negative DVT/VTE prophylaxis: Lovenox Disposition: inpatient, possible discharge home in the next 1-2 days if improved respiratory symptoms. Time Spent With Patient Critical Care time: I spent a total of [] minutes of critical care time on this patient's care today; this time is exclusive of procedural time.
[2022-06-04] MEDS: ATORVASTATIN 20 MG TABLET PO (21:32)
[2022-06-04] MEDS: MELATONIN 3 MG TABLET 9 MG PO (21:37)
[2022-06-04] MEDS: OXYCODONE IR 5 MG TABLET 10 MG PO (23:30)
[2022-06-04] MEDS: ACETAMINOPHEN 325 MG TABLET 650 MG PO (23:30)
[2022-06-05] VITALS (13 sets, daily range): BP systolic 130–185; BP diastolic 75–94; PULSE 75–94; RESP 16–22; TEMP 36.1–37; O2SAT 94–98
[2022-06-05] MEDS: ACETAMINOPHEN 325 MG TABLET 650 MG PO (06:05)
[2022-06-05] MEDS: OXYCODONE IR 5 MG TABLET 10 MG PO ×4 (06:05→21:57)
[2022-06-05] MEDS: ALBUTEROL/IPRATROPIUM 3 ML AMPUL INH ×5 (06:29→23:53)
[2022-06-05 06:37] LABS: Add Manual Diff / Slide Review NO; Basophils Absolute Auto 0 /uL (0-100); Basophils Percent Auto 0.8 % (0-2); Eosinophils Absolute Auto 0 /uL (0-450); Eosinophils Percent Auto 0.6 % (2-4); Hematocrit 40.1 % (41-53); Lymphocytes Absolute Auto 1500 /uL (1100-4500); Lymphocytes Percent Auto 30.9 % (25-40); Mean Corpuscular HGB Conc 32.3 % (30-36); Mean Corpuscular Hemoglobin 27.1 PG (26-34); Mean Corpuscular Volume 83.8 fL (80-100); Monocytes Absolute Auto 900 /uL (0-900); Monocytes Percent Auto 18.2 % (3-14); Neutrophils Absolute Auto 2400 /uL (1500-7000); Neutrophils Percent Auto 49.5 % (50-75); Platelet Count 168 X10^3/uL (150-400); Red Blood Cell Count 4.78 X10^6/uL (4.5-5.9); Red Cell Distribution Width 14.9 % (11.6-14.8); White Blood Cell Count 4.9 X10^3/uL (4.5-11.0)
[2022-06-05 06:49] LABS: Creatine Kinase 970 U/L (55-170)
[2022-06-05 06:51] LABS: BUN Creatinine Ratio 30.7 (6-22); Blood Urea Nitrogen 27 mg/dL (9-20); Carbon Dioxide 24 mmol/L (22-32); Chloride 103 mmol/L (98-107); Estimated Glomerular Filt Rate > 60 mL/min (>60); Glucose 204 mg/dL (70-100); HEMOLYSIS 19 (0-50); Magnesium 1.9 mg/dL (1.6-2.3); Potassium 3.6 mmol/L (3.4-5.1); Sodium 136 mmol/L (137-145)
[2022-06-05] MEDS: APIXABAN 5 MG TABLET PO (09:06)
[2022-06-05] MEDS: carvediloL 12.5 MG TABLET 25 MG PO ×2 (09:06→20:57)
[2022-06-05] MEDS: predniSONE 20 MG TABLET 40 MG PO (09:06)
[2022-06-05] MEDS: INSULIN GLARGINE 100 UNIT/ML 3ML PEN 30 UNIT SUBCUT (09:07)
[2022-06-05] MEDS: OSELTAMIVIR 75 MG CAPSULE PO ×2 (09:07→20:57)
[2022-06-05] MEDS: INSULIN LISPRO 100 UNIT/ML 3ML VIAL SUBCUT ×4 (09:13→20:59)
[2022-06-05] MEDS: CODEINE/GUAIFENESIN LIQUID 5ML UDC 10 ML PO ×2 (11:00→21:57)
--- NOTE | 2022-06-05 16:38 | PM.PN.1 ---
Subjective Subjective Date Patient Seen: 06/05/22 Interval history: Continues to feel ill, weak, short of breath especially with exertion or lying flat, though this is slightly improved today. Patient was incorrectly given apixaban 5 mg x1 dose today over concern for afib, EKG reviewed and was normal sinus. Patient was informed, apixaban was subsequently stopped. Exam Vital Signs (past 8 hours): - 06/05/22 09:06 06/05/22 11:23 06/05/22 15:37 Pulse Rate 91 H 89 Respiratory Rate 18 18 Blood Pressure 135/75 Pulse Oximetry 98 94 Oxygen Delivery Method Room Air Room Air Oxygen Flow Rate 0 0 Fraction of Inspired Oxygen 21 21 Fraction of Inspired Oxygen 21 SaO2/FiO2 Ratio 447 Oxygen Delivery Method Room Air Oxygen Flow Rate 0 Narrative Exam Narrative: General:? Patient is well developed and well nourished, in no distress at this time. Obese with BMI 50.8 HEENT:? Normocephalic, atraumatic, extraocular muscles intact, oral pharynx is clear and mucous membranes are moist. Neck: supple and symmetric, trachea is midline, no cervical adenopathy. Negative for JVD Chest:? Normal AP diameter and contour without kyphoscoliosis, no tachypnea, equal chest rise bilaterally. Lungs:?diminished breath sounds bilateral lung bases, upper lung inspiratory wheezes bilaterally. Cardio:?RRR no m/r/g. Abdomen: S NT ND. Musculoskeletal:? Muscle strength and tone are equal within normal limits, no deformity. Extremities:chronic bilateral lower extremity non pitting lymphedema, no joint effusions. No cyanosis or clubbing. Skin:? Pale,? Warm to touch,dry and intact without rashes, ulcerations or petechiae.? Neuro:? Alert and orientated x3,? sensation to touch intact in all extremities, no gross deficits noted of cranial nerves. Psych:? Patient has a well-kept appearance, appropriate affect, mental status attitude thought context and judgment are appropriate for age. Objective Labs Result Diagrams: 06/05/22 06:25 06/05/22 06:25 Labs: Laboratory Results - last 24 hr 06/05/22 06/05/22 06/05/22 06:25 06:25 06:25 WBC 4.9 RBC 4.78 Hgb 13.0 L Hct 40.1 L MCV 83.8 MCH 27.1 MCHC 32.3 RDW 14.9 H Plt Count 168 Neut % (Auto) 49.5 L D Lymph % (Auto) 30.9 [place] % (Auto) 18.2 H Eos % (Auto) 0.6 L Baso % (Auto) 0.8 Neut # (Auto) 2400 Lymph # (Auto) 1500 [place] # (Auto) 900 Eos # (Auto) 0 Baso # (Auto) 0 Sodium 136 L Potassium 3.6 Chloride 103 Carbon Dioxide 24 BUN 27 H Creatinine 0.88 Estimated GFR > 60 BUN/Creatinine Ratio 30.7 H Glucose 204 H Calcium 8.0 L Magnesium 1.9 Total Creatine Kinase 970 H [facility] Medical History (Updated 06/03/22 @ 20:26 by KINZA Lambert) Asthma Diabetes Duodenal ulcer History of MRSA infection HLD (hyperlipidemia) HTN (hypertension) Hyperlipidemia due to type 2 diabetes mellitus Insulin dependent type 2 diabetes mellitus Spinal stenosis Surgical History Hx of splenectomy Family History Father Hypertension Diabetes mellitus Mother Diabetes mellitus Hypertension Social History household members: spouse, family and children Smoking Status: Never smoker alcohol intake: former Assessment & Plan Assessment & Plan narrative: Db Santos is a 52-year-old male with a history of hypertension, hyperlipidemia, asthma, spinal stenosis, MSSA, duodenal ulcer, paraspinal abscess, insulin-dependent diabetes, arthritis, and morbid obesity who presented to the ED complaining body aches fever, chills, shortness of breath, with hypertensive urgency/emergency. Patient admitted due to hypertensive urgency/emergency, influenza a with asthma exacerbation, and rhabdomyolysis. 1. Hypertensive urgency/emergency, acute on chronic in the setting of essential hypertension, present on admission -continued carvedilol, losartan, Lasix with improvement. 2. Influenza a, acute, present on admission with asthma exacerbation -symptom management, symptoms started 2 days prior to admission started tamiflu after risk benefit discussion and shared decision making with patient. -respiratory consult, DuoNebs q.4 hours while awake, incentive spirometry -prednisone 40 mg q.day, guaifenesin, Tessalon Perles -patient negative for COVID, RSV, influenza B -CTA is negative for PE. -Chest x-ray moderate vascular congestion without cardiomegaly or pleural effusion. 3. Rhabdomyolysis, acute, present on admission -CK 903 on admit, slightly up today at 970. -can try oral rehydration given orthopnea today, recheck CK tomorrow. 4. Insulin-dependent type 2 diabetes with hyperlipidemia, acute on chronic, present on admission -patient admitted under diabetic protocols -A1c 8.8% -Lantus 30 units b.i.d., high-dose sliding scale for coverage -hold patient's Jardiance and metformin -continue Rovastatin 5. Asthma, acute chronic, present on admission with exacerbation -duoneb and albuterol prn -prednisone as noted above. 6. Morbid obesity, acute on chronic, present on admission -dietary consult ordered regarding nutritional education and information for dietary, lifestyle, exercise, and weight changes. -the patient is at much higher risk for medical and surgical complications due to obesity as it relates to chronic illnesses:, and acute illness. The patient's obesity increases the difficulty and complexity of medical and/or surgical interventions, management and increases the chances of poor outcome such as morbidity and mortality as well as impaired wound healing. Code status:Full Surrogate decision maker: Mary Grace [place] COVID PCR: Negative DVT/VTE prophylaxis: Lovenox Disposition: inpatient, possible discharge home in the next 1-2 days if improved respiratory symptoms. Time Spent With Patient Critical Care time: I spent a total of [] minutes of critical care time on this patient's care today; this time is exclusive of procedural time.
--- NOTE | 2022-06-05 17:55 | PC.NURSE ---
1750- Dr. Simpson looked at the wound under the left arm. Order received.
[2022-06-05] MEDS: ATORVASTATIN 20 MG TABLET PO (20:56)
[2022-06-05] MEDS: MUPIROCIN 22 GM OINT 1 APPLIC TOP (20:57)
[2022-06-05] MEDS: MELATONIN 3 MG TABLET 9 MG PO (20:57)
[2022-06-05] MEDS: INSULIN GLARGINE 100 UNIT/ML 3ML PEN 35 UNIT SUBCUT (20:58)
[2022-06-06 00:24] VITALS: BP 144/85; PULSE 80; RESP 16; TEMP 36.3; O2SAT 92
[2022-06-06] MEDS: CODEINE/GUAIFENESIN LIQUID 5ML UDC 10 ML PO ×2 (04:22→08:57)
[2022-06-06] MEDS: ACETAMINOPHEN 325 MG TABLET 650 MG PO ×2 (04:29→12:41)
[2022-06-06 05:00] VITALS: BP 138/86; PULSE 75; RESP 16; TEMP 36; O2SAT 93
[2022-06-06 06:34] LABS: Add Manual Diff / Slide Review NO; Basophils Absolute Auto 0 /uL (0-100); Basophils Percent Auto 0.9 % (0-2); Eosinophils Absolute Auto 0 /uL (0-450); Hematocrit 41.4 % (41-53); Hemoglobin 13.2 g/dL (13.5-17.5); Lymphocytes Absolute Auto 1800 /uL (1100-4500); Lymphocytes Percent Auto 37.3 % (25-40); Mean Corpuscular HGB Conc 31.8 % (30-36); Mean Corpuscular Hemoglobin 26.8 PG (26-34); Mean Corpuscular Volume 84.4 fL (80-100); Monocytes Absolute Auto 600 /uL (0-900); Monocytes Percent Auto 13.4 % (3-14); Neutrophils Absolute Auto 2300 /uL (1500-7000); Neutrophils Percent Auto 47.4 % (50-75); Platelet Count 193 X10^3/uL (150-400); Red Blood Cell Count 4.91 X10^6/uL (4.5-5.9); White Blood Cell Count 4.9 X10^3/uL (4.5-11.0)
[2022-06-06 06:52] LABS: Creatine Kinase 577 U/L (55-170)
[2022-06-06 06:54] LABS: BUN Creatinine Ratio 27.9 (6-22); Blood Urea Nitrogen 24 mg/dL (9-20); Calcium 8.1 mg/dL (8.4-10.2); Carbon Dioxide 26 mmol/L (22-32); Chloride 103 mmol/L (98-107); Estimated Glomerular Filt Rate > 60 mL/min (>60); Glucose 233 mg/dL (70-100); HEMOLYSIS < 15 (0-50); Magnesium 1.9 mg/dL (1.6-2.3); Potassium 3.7 mmol/L (3.4-5.1); Sodium 138 mmol/L (137-145)
[2022-06-06] MEDS: ALBUTEROL/IPRATROPIUM 3 ML AMPUL INH (07:56)
[2022-06-06] MEDS: INSULIN LISPRO 100 UNIT/ML 3ML VIAL SUBCUT ×2 (08:54→12:40)
[2022-06-06] MEDS: MUPIROCIN 22 GM OINT 1 APPLIC TOP (08:54)
[2022-06-06] MEDS: INSULIN GLARGINE 100 UNIT/ML 3ML PEN 35 UNIT SUBCUT (08:55)
[2022-06-06] MEDS: carvediloL 12.5 MG TABLET 25 MG PO (08:57)
[2022-06-06] MEDS: predniSONE 20 MG TABLET 40 MG PO (08:57)
[2022-06-06] MEDS: OSELTAMIVIR 75 MG CAPSULE PO (08:57)
[2022-06-06] MEDS: OXYCODONE IR 5 MG TABLET 10 MG PO ×2 (08:57→12:47)
--- NOTE | 2022-06-06 11:40 | P.DS_ITS ---
History of Present Illness History of Present Illness Date Patient Seen: 06/03/22 Time Patient Seen: 20:20 Chief complaint: chest tightness Narrative: Db Santos is a 52-year-old male with a history of hypertension, hyperlipidemia, asthma, spinal stenosis, MSSA, duodenal ulcer, paraspinal abscess, insulin-dependent diabetes, arthritis, and morbid obesity who presented to the ED complaining body aches fever, chills, shortness of breath, orthopnea, cough and pleuritic chest pain for the past 4-5 days. Patient presented to the ED with hypertensive urgency/emergency blood pressure is 243/116, 226/109, 209/104, and low-grade temp 99.4?. Patient denies nonpruritic chest pain, abdominal pain, nausea, vomiting, diarrhea, constipation, urinary symptoms, weakness, numbness, tingling, headache, recent illness injury falls or trauma. He states on admit that his fever and chills have resolved. Patient reports that he has a boil that is located under his left arm that presented approximately 3-4 weeks ago that approximately a week ago it opened and started draining, and is no longer painful. At the time of admit patient has a low-grade fever 100.1, BP 182/89, HR 97, RR 21, O2 saturation 95% on room air. Patient's CBC is unremarkable with the exception of mono 1500, glucose 137, CK 903, CK-2:3.96, initial troponin is normal but slightly elevated 0.017, urinalysis is negative, BNP 169, total protein 8.9, patient is positive for influenza A. Patient is negative for RSV COVID and influenza B. patient's CTA is negative for PE. Chest x-ray moderate vascular congestion without cardiomegaly or pleural effusion. EKG demonstrates normal sinus rhythm rate 94 T-wave inversion in aVL and lead 1, these findings are similar to previous EKGs without ST changes I have personally reviewed. Patient admitted for observation due to hypertensive urgency/emergency, influenza a and rhabdomyolysis. Discharge Providers Provider Date of admission: 06/03/22 19:22 Discharge Date: 06/06/22 Primary care physician: Jose Alfredo Valle MD Consults: 06/03/22 20:14 Consult to Dietitian, Adult Routine Comment: Reason For Exam: BMI 50.6,DM,HTN,HLD Discharge provider: Lee Gonsales MD Summary Hospital Course Discharge Diagnosis: 1. Flu A 2. Asthma exacerbation 3. Rhabdomyolysis 4. Type 2 Diabetes 5. Hypertension 6. Hyperlipidemia 7. Morbid obesity 8. Cardiac demand ischemia 9. Tachycardia Hospital Course: Mr. Santos was admitted to the hospital with shortness of breath, cough due to flu and asthma exacerbation. He improved with tamiflu and nebulizers and steroids. He was ultimately discharged home feeling improved. He did not require oxygen. He had episdoes of brief tachycardia in the ED, the question is if this is atria fibrillation. He should follow with PCP for consdieration of Holter monitor. Exam Vital Signs (past 8 hours): Fraction of Inspired Oxygen 21 SaO2/FiO2 Ratio 461 Oxygen Delivery Method Room Air Oxygen Flow Rate 0 Narrative Exam Narrative: General:? no acute distress PULM: decreased breath sounds Objective Labs Result Diagrams: 06/06/22 06:28 06/06/22 06:28 [facility] Medical History (Updated 06/03/22 @ 20:26 by KINZA Lambert) Asthma Diabetes Duodenal ulcer History of MRSA infection HLD (hyperlipidemia) HTN (hypertension) Hyperlipidemia due to type 2 diabetes mellitus Insulin dependent type 2 diabetes mellitus Spinal stenosis Surgical History Hx of splenectomy Family History Father Hypertension Diabetes mellitus Mother Diabetes mellitus Hypertension Social History household members: spouse, family and children Smoking Status: Never smoker alcohol intake: former Discharge Plan Discharge Plan Patient Disposition: Home Provider Discharge Comment: Mr. Santos came in to the hospital with cough and trouble breathing. He had the flu and a flare of his asthma. He was given medications and felt good enough to go home. He should follow up with his PCP within one week. Discharge orders & Medications Prescriptions: New prednisone 20 mg Tablet 40 mg PO DAILY Qty: 4 0RF benzonatate 100 mg Capsule 100 mg PO TID PRN (Reason: Cough) Qty: 20 0RF oseltamivir [Tamiflu] 75 mg Capsule 75 mg PO BID Qty: 8 0RF Continued albuterol sulfate 90 mcg/actuation Hfa Aerosol Inhaler 2 puff INHALATION Q4-6H PRN (Reason: Shortness Of Breath) Qty: 0 melatonin 1 MG tablet 10 mg PO HS Qty: 0 ascorbic acid (vitamin C) 500 MG tablet 500 mg PO QDAY Qty: 0 losartan [Cozaar] 100 MG tablet 100 mg PO QDAY Qty: 30 amlodipine [Norvasc] 5 MG tablet 5 mg PO BID 60 Days Qty: 0 0RF carvedilol 25 mg Tablet 25 mg PO BID cetirizine 10 mg Tablet 10 mg PO BID metformin 850 mg Tablet 850 mg PO TID clonidine HCl 0.2 mg Tablet 0.2 mg PO BID furosemide 20 mg Tablet 60 mg PO QAM insulin lispro [Humalog KwikPen Insulin] 100 unit/mL Insulin Pen 15 - 30 unit SUBCUT TID Rx Instructions: has sliding scale rosuvastatin 10 mg Tablet 10 mg PO DAILY insulin glargine [Lantus Solostar U-100 Insulin] 100 unit/mL (3 mL) Insulin Pen 50 unit SUBCUT QAM Label Comments: took 30 this am Jardiance 25 mg Tablet 25 mg PO DAILY Ozempic 1 mg/dose (2 mg/1.5 mL) Pen Injector 1 mg SUBCUT QWEEK Label Comments: Takes on Saturdays acetaminophen 325 mg Tablet 650 mg PO Q6HR PRN (Reason: Pain, Mild (1-3)) Qty: 60 0RF Follow up/Referrals: Jose Alfredo Valle MD [Primary Care Provider] - 1 Week (*'s office will call patient to schedule appointment Per Thu. [phone]. hospitalized flu and asthma) Diet/Activity/Treatments Diet: Carb-consistent/Diabetic Visit Report/Discharge Packet Instructions: High Blood Pressure, Carbohydrate-Counting Diet, DI for Cough -- Adult, DI for High Blood Pressure, DI for Influenza -- Adult Discharge Data Primary Care Provider: Jose Alfredo Valle
--- NOTE | 2022-06-06 15:23 | PC.NURSE ---
Discharge: Pt feels ready to d/c to home. He is still sob w/movement. But he says he has improved. Ribs still sore from coughing. Tolerates diet w/out problems. Up and walking in room, does take rest breaks. Discharge packet reviewed and understood. Rx has been esent and pt aware of that. Questions answered. D/c to home via auto w/son.
[2022-06-20 07:31] LABS: Misc. to WA State Lab SEE SCANNED REPORTS
== END 2022-06-06 13:05 | disposition home or self-care (01) | DRG 305 ==
LOC: ED 19:16 → AC 06-04 08:04
PROVIDERS: Nurse Practitioner Family; Admitting Provider Internal Medicine; Emergency Provider Emergency Medicine; Family Provider Family Medicine; PCP Internal Medicine; Visit Provider Internal Medicine
DX: I16.1 Hypertensive emergency (principal); M62.82 Rhabdomyolysis; Z68.43 Body mass index [BMI] 50.0-59.9, adult; J45.901 Unspecified asthma with (acute) exacerbation; I24.8 Other forms of acute ischemic heart disease; J10.1 Influenza due to other identified influenza virus with other respiratory manifestations; I10 Essential (primary) hypertension; E11.9 Type 2 diabetes mellitus without complications; E78.5 Hyperlipidemia, unspecified; E66.01 Morbid (severe) obesity due to excess calories; I16.0 Hypertensive urgency; Z79.84 Long term (current) use of oral hypoglycemic drugs; Z20.822 Contact with and (suspected) exposure to COVID-19; Z79.4 Long term (current) use of insulin; Z79.85 Long-term (current) use of injectable non-insulin antidiabetic drugs
CPT/HCPCS: 36415; 71045; 71275; 74174; 80048; 80053; 81003; 81015; 82550; 82553; 82962; 83036; 83605; 83690; 83735; 83880; 84145; 84484; 85025; 85610; 85730; 86140; 87070; 87075; 87077; 87086; 87186; 87205; 87502; 87634; 87797; 93005; 93306; 94640; 96374; 99284; 99285; U0003; U0005; J1170; J1650; Q9957; Q9967

== ENCOUNTER → 2024-08-09 09:22 | Outpatient (CLI) | payer OTHER, SELFPAY ==
[2022-06-03 20:02] VITALS: BMI 50.6
--- NOTE | 2024-08-09 09:26 | DI.RAD.S_ITS ---
PROCEDURE: XR SHOULDER RT MIN 2V INDICATIONS: SHOULDER PAIN TECHNIQUE: Two views of the shoulder were acquired. COMPARISON: [facility], CR, XR SHOULDER LT MIN 2V, 03/14/2021, 13:56. FINDINGS: Bones: No acute fractures. There is severe glenohumeral joint space loss and large osteophytes arising inferiorly from the humeral neck and glenoid. Moderate size superior glenoid osteophyte. Subcortical cystic change at the greater tuberosity and lateral acromion. Prominent lateral acromial spur formation. Soft tissues: No suspicious soft tissue calcifications. IMPRESSION: Prominent osteophytosis along the inferior glenohumeral joint. Consider dedicated cross-sectional imaging to assess for underlying bone tumor. Degeneration and spurring along the lateral acromion. Dictated by: Francheska Montez M.D. on 08/11/2024 at 7:15 Approved by: Francheska Montez M.D. on 08/11/2024 at 7:17
--- NOTE | 2024-08-09 09:26 | DI.RAD.S_ITS ---
PROCEDURE: XR WRIST RT 2V INDICATIONS: PAIN TECHNIQUE: Two views of the wrist were acquired. COMPARISON: None. FINDINGS: Bones: No fractures or dislocations. No suspicious bony lesions. Mild ulnar negative variance with slight sclerosis and spurring. Mild radiocarpal joint space loss and spur formation. Soft tissues: No suspicious soft tissue calcifications. IMPRESSION: Mild joint space loss and degeneration. Dictated by: Francheska Montez M.D. on 08/11/2024 at 7:13 Approved by: Francheska Montez M.D. on 08/11/2024 at 7:14
--- NOTE | 2024-08-09 09:26 | DI.RAD.S_ITS ---
PROCEDURE: XR WRIST LT 2V INDICATIONS: PAIN TECHNIQUE: Two views of the wrist were acquired. COMPARISON: None. FINDINGS: Bones: No fractures or dislocations. No suspicious bony lesions. Mild ulnar negative variance, symmetric to the contralateral side. Mild to moderate radiocarpal joint space loss and scalloping of the distal radial surface with mild spur formation. Soft tissues: No suspicious soft tissue calcifications. IMPRESSION: Mild radiocarpal degeneration. Dictated by: Francheska Montez M.D. on 08/11/2024 at 7:14 Approved by: Francheska Montez M.D. on 08/11/2024 at 7:15
== END ==
PROVIDERS: Family Provider Family Medicine; Referring Provider Chiropractor; Visit Provider Chiropractor
DX: J45.909 Unspecified asthma, uncomplicated (principal); R94.2 Abnormal results of pulmonary function studies; M19.032 Primary osteoarthritis, left wrist; M19.031 Primary osteoarthritis, right wrist; M25.711 Osteophyte, right shoulder
CPT/HCPCS: 73030; 73100; 94060